=== PATIENT | female | born 1995 | race Caucasian/White ===

== ENCOUNTER 2019-01-01 18:55 | Emergency (ER) | payer MEDICAID, SELFPAY ==
[2019-01-01 18:51] VITALS: PULSE 100; RESP 16; TEMP 37
--- NOTE | 2019-01-01 19:09 | W.ED.GENAD ---
Discharge Plan Disposition Patient Disposition: HOME Condition: Good Discharge Details Chief Complaint: Headache Clinical Impression: Migraine Primary Care Provider: Jerrica Healy ED Provider: Partha Amaro Home Meds and New Rx's Prescriptions: No Action No Known Home Meds RF: 0 Discharge Instructions Instructions: Migraine Headache (ED) Additional Instructions: Your CT scan shows no evidence of concerning tumor, mass or other abnormality. Let your laboratory work-up is very reassuring and normal. Your signs and symptoms are consistent with a complex migraine. Please follow-up closely with your neurologist as soon as possible for reassessment. Please try to decrease in your caffeine intake and avoid preserved meats. If you notice any worsening of your symptoms, or any new symptoms such as vomiting, diarrhea, fever, chills, shortness of breath, chest pain, numbness, weakness, or fainting , please return immediately to the emergency department for reevaluation. Please follow up with your primary care provider as soon as possible for reassessment and reevaluation. As always, it was a pleasure participating in your medical care today. Referrals: Jerrica Healy [Primary Care Provider] - Medical Decision Making This is a 23-year-old female with past medical history of borderline personality disorder, tobacco abuse, previous headaches, who presents today for evaluation of headache. She states that over the last 1 to 2 hours she has had a mild right-sided initially frontal and posterior eye headache that is gradually radiated to the right occiput. It is not the worst headache of her life. She has associated squiggles in her right eye, and subjective tingling in her right upper lip, and fingertips bilaterally. She denies any fever, chills, neck pain. She denies any significant weakness. Physical exam demonstrates no signs of meningitis, no evidence of neurologic deficit. She does appear mildly anxious, but demonstrates an otherwise benign exam. Patient denies any history of recent imaging. With the patient's history of recurrent headaches, and her current headaches and symptoms now, in conjunction with a lack of imaging I do feel that CT scan is reasonable to evaluate for a potential malignancy or mass. We will treat with migraine cocktail fluids, and reassess. At this time her signs and symptoms appear clinically consistent with a complex migraine. 8:35 PM Patient's laboratory work-up has returned, no significant elevation in the WBC count or left shift. Normal electrolytes, normal renal function, negative drug screen, negative test. CT scan shows no acute process. There is mild para sinus disease. On reassessment the patient has complete resolution of her symptoms. She is acting normally, feels much better, no longer feels nervous or jittery, and states that her headache has completely resolved. Repeat neurologic exam is normal and reassuring with no abnormalities. No clinical evidence of meningitis. Signs and symptoms appear clinically consistent with a complex migraine. Recommend close follow-up with her neurologist at [facility]. We discussed red flags which return. I have extensively reviewed the treatment plan and discharge instructions with the patient and their family. I have addressed all patient concerns at this time. The patient and family was made aware of what symptoms to monitor for that would warrant a return to the emergency department. Discussed the plan with the patient and family, they demonstrate verbal understanding and agreement with our assessment and plan at this time. IMPRESSION: 1. No acute intracranial finding. 2. Mucosal thickening of the paranasal sinuses as discussed with moderate air-fluid level in the right frontal sinus, correlate clinically to exclude symptoms of acute sinusitis. Thank you for allowing us to participate in the care of your patient. Dictated and Authenticated by: Dung Wesley MD [facility] General Date/Time Provider Initiated Documentation: 01/01/19 19:05. [facility] Narrative: This is a 23-year-old female who presents today for evaluation of headache. Patient has a past medical history of borderline personality disorder, previous childhood seizures for which she has grown out of, previous headaches. Patient states that today she was driving home from work when she noticed slight mild right-sided/posterior eye headache, which gradually radiated around to the posterior occiput. She denies any neck pain or stiffness. The symptoms eventually worsened over the last 1 to 2 hours, in conjunction with associated mild tingling of her right upper lip, and her fingertips bilaterally. She denies any significant visual changes aside from mild squiggly's in her right eye. She denies any dark curtain coming down over her vision. The patient denies any headache red flags of worst headache of life, thunderclap headache, neck pain, fever, chills, concerning family history of polycystic kidney disease, Marfan syndrome, Ramon-Danlos syndrome, abdominal aortic aneurysm, aortic dissection, or intracranial aneurysm. She denies any chest pain, tearing sensation in her chest or neck, shortness of breath. She denies any recent trauma. Headache symptoms appear to be made worse with light. She states that she has had headaches like this previously in the past. She denies any other complaints, modifying factors. She does admit to regular tobacco use. She denies any IV or illicit drug use. Related Data Home Medications Medication Instructions Recorded Confirmed Unknown [No Known Home Meds] 01/03/18 01/01/19 Allergies Allergy/AdvReac Type Severity Reaction Status Date / Time No Known Allergies Allergy Unverified 01/01/19 18:56 General Stated Complaint: Headache OMAR: 3 Review of Systems Review of Systems All systems reviewed & are unremarkable except as noted in HPI and below PFSH Medical History Seizures (Acute) Social History Smoking/Tobacco Use Status: Never Drug use: Never Do you feel safe in your relationship?: Yes Exam Narrative Exam Narrative: 1.Const: Well-nourished, Well-developed, appearing stated age 2.Eyes: PERRL, no conjunctival injection, and symmetrical lids. 3.ENT: Atraumatic external nose and ears. Moist MM. Neck: Symmetric, trachea midline, No thyromegaly. Patient demonstrates good movement of cervical neck. There is no nuchal rigidity, no nuchal tenderness. Patient is able to flex the neck without any difficulty or significant pain. Negative Kernig's and Brudzinski sign. No evidence of rash over the face or eyes. Eye: EOMI, PERRL, Peripheral vision intact. No nystagmus. Fundoscopic exam shows normal optic discs and normal vasculature. No external signs of preseptal cellulitis, no redness around the eye, no proptosis. No hyphema, no signs of trauma around the eye, no periorbital emphysema. 4.CVS: +S1/S2, No murmurs or gallops. Peripheral pulses 2+ and equal in all extremities. Brisk capillary refill in all extremities. 5.RESP: Unlabored respiratory effort. Clear to auscultation bilaterally. No wheezes rales or rhonchi 6.GI: Soft, Nontender/Nondistended, No hepatosplenomegaly. No guarding or rebound. 7.MSK: Normocephalic/Atraumatic, Extremities w/o deformity or ttp No cyanosis or clubbing, Normal movement of all extremities 8.Skin: Warm, Dry. No rashes or lesions. 9.Neuro: electrician maintenance II-XII grossly intact. Sensation grossly intact, no focal neurologic deficits. All 6 cardinal planes of vision are fully intact. No evidence of rotatory or vertical nystagmus. The patient demonstrated a normal [id number], good dexterity. There was no evidence of dysdiadochokinesia. Patient was able to ambulate without difficulty. There was no wide-based gait. Romberg, and [id number] are both normal on testing. Sensation was intact bilaterally as well as muscle strength bilaterally for all extremities. Patient was able to verbalize butter cup with no slurring, or miss pronunciation. Normal sensation in all fingers and lips, including the areas where she has subjective tingling. 10.Psych: (AAO) x3. Appropriate mood and affect Course Vital Signs Temperature 37.0 C 01/01/19 18:51 Pulse 100 H 01/01/19 18:51 Respiratory Rate 16 01/01/19 18:51 Temperature 37.0 C 01/01/19 18:51 Temperature Source Temporal Artery Scan 01/01/19 18:51 Pulse 100 H 01/01/19 18:51 Respiratory Rate 16 01/01/19 18:51 Respiratory Effort 01/01/19 18:51 Pain Level 6 01/01/19 18:51 Comment 01/01/19 18:51
--- NOTE | 2019-01-01 19:16 | ED.GENADUL_ITS ---
Discharge Plan Disposition Patient Disposition: HOME Condition: Good Discharge Details Chief Complaint: Headache Clinical Impression: Migraine Primary Care Provider: Jerrica Healy ED Provider: Partha Amaro Home Meds and New Rx's Prescriptions: No Action No Known Home Meds RF: 0 Discharge Instructions Instructions: Migraine Headache (ED) Additional Instructions: Your CT scan shows no evidence of concerning tumor, mass or other abnormality. Let your laboratory work-up is very reassuring and normal. Your signs and symptoms are consistent with a complex migraine. Please follow-up closely with your neurologist as soon as possible for reassessment. Please try to decrease in your caffeine intake and avoid preserved meats. If you notice any worsening of your symptoms, or any new symptoms such as vomiting, diarrhea, fever, chills, shortness of breath, chest pain, numbness, weakness, or fainting , please return immediately to the emergency department for reevaluation. Please follow up with your primary care provider as soon as possible for reassessment and reevaluation. As always, it was a pleasure participating in your medical care today. Referrals: Jerrica Healy [Primary Care Provider] - Medical Decision Making This is a 23-year-old female with past medical history of borderline personality disorder, tobacco abuse, previous headaches, who presents today for evaluation of headache. She states that over the last 1 to 2 hours she has had a mild right-sided initially frontal and posterior eye headache that is gradually radiated to the right occiput. It is not the worst headache of her life. She has associated squiggles in her right eye, and subjective tingling in her right upper lip, and fingertips bilaterally. She denies any fever, chills, neck pain. She denies any significant weakness. Physical exam demonstrates no signs of meningitis, no evidence of neurologic deficit. She does appear mildly anxious, but demonstrates an otherwise benign exam. Patient denies any history of recent imaging. With the patient's history of recurrent headaches, and her current headaches and symptoms now, in conjunction with a lack of imaging I do feel that CT scan is reasonable to evaluate for a potential malignancy or mass. We will treat with migraine cocktail fluids, and reassess. At this time her signs and symptoms appear clinically consistent with a complex migraine. 8:35 PM Patient's laboratory work-up has returned, no significant elevation in the WBC count or left shift. Normal electrolytes, normal renal function, negative drug screen, negative test. CT scan shows no acute process. There is mild para sinus disease. On reassessment the patient has complete resolution of her symptoms. She is acting normally, feels much better, no longer feels nervous or jittery, and states that her headache has completely resolved. Repeat neurologic exam is normal and reassuring with no abnormalities. No clinical evidence of meningitis. Signs and symptoms appear clinically consistent with a complex migraine. Recommend close follow-up with her neurologist at [facility]. We discussed red flags which return. I have extensively reviewed the treatment plan and discharge instructions with the patient and their family. I have addressed all patient concerns at this time. The patient and family was made aware of what symptoms to monitor for that would warrant a return to the emergency department. Discussed the plan with the patient and family, they de monstrate verbal understanding and agreement with our assessment and plan at this time. IMPRESSION: 1. No acute intracranial finding. 2. Mucosal thickening of the paranasal sinuses as discussed with moderate air- fluid level in the right frontal sinus, correlate clinically to exclude symptoms of acute sinusitis. Thank you for allowing us to participate in the care of your patient. Dictated and Authenticated by: Dung Wesley MD [facility] General Date/Time Provider Initiated Documentation: 01/01/19 19:05 . [facility] Narrative: This is a 23-year-old female who presents today for evaluation of headache. Patient has a past medical history of borderline personality disorder, previous childhood seizures for which she has grown out of, previous headaches. Patient states that today she was driving home from work when she noticed slight mild right-sided/posterior eye headache, which gradually radiated around to the posterior occiput. She denies any neck pain or stiffness. The symptoms eventually worsened over the last 1 to 2 hours, in conjunction with associated mild tingling of her right upper lip, and her fingertips bilaterally. She denies any significant visual changes aside from mild squiggly's in her right eye. She denies any dark curtain coming down over her vision. The patient denies any headache red flags of worst headache of life, thunderclap headache, neck pain, fever, chills, concerning family history of polycystic kidney disease, Marfan syndrome, Ramon-Danlos syndrome, abdominal aortic aneurysm, aortic dissection, or intracranial aneurysm. She denies any chest pain, tearing sensation in her chest or neck, shortness of breath. She denies any recent trauma. Headache symptoms appear to be made worse with light. She states that she has had headaches like this previously in the past. She denies any other complaints, modifying factors. She does admit to regular tobacco use. She denies any IV or illicit drug use. Related Data Home Medications Medication Instructions Recorded Confirmed Unknown [No Known Home Meds] 01/03/18 01/01/19 Allergies Allergy/AdvReac Type Severity Reaction Status Date / Time No Known Allergies Allergy Unverified 01/01/19 18:56 General Stated Complaint: Headache OMAR: 3 Review of Systems Review of Systems All systems reviewed & are unremarkable except as noted in HPI and below PFSH Medical History Seizures (Acute) Social History Smoking/Tobacco Use Status: Never Drug use: Never Do you feel safe in your relationship?: Yes Exam Narrative Exam Narrative: 1.Const: Well-nourished, Well-developed, appearing stated age 2.Eyes: PERRL, no conjunctival injection, and symmetrical lids. 3.ENT: Atraumatic external nose and ears. Moist MM. Neck: Symmetric, trachea midline, No thyromegaly. Patient demonstrates good movement of cervical neck. There is no nuchal rigidity, no nuchal tenderness. Patient is able to flex the neck without any difficulty or significant pain. Negative Kernig's and Brudzinski sign. No evidence of rash over the face or eyes. Eye: EOMI, PERRL, Peripheral vision intact. No nystagmus. Fundoscopic exam shows normal optic discs and normal vasculature. No external signs of preseptal cellulitis, no redness around the eye, no proptosis. No hyphema, no signs of trauma around the eye, no periorbital emphysema. 4.CVS: +S1/S2, No murmurs or gallops. Peripheral pulses 2+ and equal in all extremities. Brisk capillary refill in all extremities. 5.RESP: Unlabored respiratory effort. Clear to auscultation bilaterally. No wheezes rales or rhonchi 6.GI: Soft, Nontender/Nondistended, No hepatosplenomegaly. No guarding or rebound. 7.MSK: Normocephalic/Atraumatic, Extremities w/o deformity or ttp No cyanosis or clubbing, Normal movement of all extremities 8.Skin: Warm, Dry. No rashes or lesions. 9.Neuro: translation director II-XII grossly intact. Sensation grossly intact, no focal neurologic deficits. All 6 cardinal planes of vision are fully intact. No evide nce of rotatory or vertical nystagmus. The patient demonstrated a normal [id number], good dexterity. There was no evidence of dysdiadochokinesia. Patient was able to ambulate without difficulty. There was no wide-based gait. Romberg, and vpyt-[id number] are both normal on testing. Sensation was intact bilaterally as well as muscle strength bilaterally for all extremities. Patient was able to verbalize butter cup with no slurring, or miss pronunciation. Normal sensation in all fingers and lips, including the areas where she has subjective tingling. 10.Psych: (AAO) x3. Appropriate mood and affect Course Vital Signs Temperature 37.0 C 01/01/19 18:51 Pulse 100 H 01/01/19 18:51 Respiratory Rate 16 01/01/19 18:51 Temperature 37.0 C 01/01/19 18:51 Temperature Source Temporal Artery Scan 01/01/19 18:51 Pulse 100 H 01/01/19 18:51 Respiratory Rate 16 01/01/19 18:51 Respiratory Effort 01/01/19 18:51 Pain Level 6 01/01/19 18:51 Comment 01/01/19 18:51
[2019-01-01] MEDS: Normal Saline 1,000 ML 1000 ML IV (19:19)
[2019-01-01] MEDS: diphenhydrAMINE 50 MG/ML VIAL 25 MG IVP (19:20)
[2019-01-01 19:21] LABS: Abs Immature Grans 0.02 k/cumm (0.0-0.09); Absolute Basophil Count 0.03 k/cumm (0.0-0.2); Absolute Eosinophil Count 0.55 k/cumm (0.0-0.7); Absolute Monocyte Count 0.43 k/cumm (0.11-0.7); Absolute Neutrophil Count 5.31 k/cumm (1.2-6.7); Basophils % 0.3; Eosinophils % 5.2; HCT 41.3 % (36.0-46.0); Immature Grans % 0.2; Lymphocytes % 39.8; Mean Corp. HGB Concentration 33.9 g/dL (32.0-36.0); Mean Corpuscular Hemoglobin 29.2 pg (27.0-33.0); Mean Platelet Volume 8.9 fL (8.0-11.0); Monocytes % 4.1; Neutrophils % 50.4; Platelet Count 300 x1000/uL (130-400); RBC Distribution Width 13.3 % (11.7-14.6); White Blood Cell Count 10.54 k/cumm (4.4-10.8)
[2019-01-01] MEDS: methylPREDNISolone SUCC 125 MG VIAL IVP (19:21)
[2019-01-01] MEDS: Prochlorperazine 10 MG/2 ML VIAL IVP (19:22)
[2019-01-01] MEDS: Acetaminophen 500 MG TAB 1000 MG PO (19:23)
[2019-01-01] MEDS: Ketorolac 15 MG/ML VIAL IVP (19:23)
[2019-01-01 19:45] LABS: ALT 25 U/L (12-78); AST 15 U/L (15-37); Albumin 4.1 g/dL (3.4-5.0); Alkaline Phosphatase 133 U/L (46-116); Anion Gap 11.1 mmol/L (3-11); BUN 16 mg/dL (7-18); Bilirubin, Total 0.3 mg/dL (0.2-1.0); CO2 25.9 mmol/L (21.0-32.0); CREATININE 0.81 mg/dL (0.55-1.02); Calcium 9.3 mg/dL (8.5-10.1); Chloride 104 mmol/L (98-107); Glucose 98 mg/dL (70-100); Potassium 3.7 mmol/L (3.5-5.1); Sodium 141 mmol/L (136-145)
[2019-01-01 19:48] LABS: *AMPHETAMINES SCREEN URINE Negative (Negative); *BARBITURATES SCREEN URINE Negative (Negative); *BENZODIAZEPINES SCREEN URINE Negative (Negative); Cannabinoids THC Negative (Negative); Cocaine Screen,Urine Negative (Negative); METHADONE URINE SCREEN Negative (Negative); OPIATES URINE SCREEN Negative (Negative)
[2019-01-01 19:49] LABS: Tricyclic Antidepressants Negative (Negative)
--- NOTE | 2019-01-01 19:50 | DI.CT_ITS ---
SYMPTOM/DIAGNOSIS: RIGHT SIDED HEADACHE NONCONTRAST HEAD CT: There is opacification of both frontal sinuses as well as several ethmoid sinuses. Small polyp and mucous retention cyst is seen in the posterior right sphenoid sinus. The mastoid air cells appear clear. No intracranial hemorrhage, mass or infarct is seen. The ventricles are normal in size. There is no evidence of skull fracture. IMPRESSION: Sinus disease. No acute intracranial abnormality.
--- NOTE | 2019-01-01 20:07 | DI.VRAD_ITS ---
EXAM: CT Head Without Contrast EXAM DATE/TIME: 01/01/2019 7:08 PM CLINICAL HISTORY: 23 years old, female; Pain; Patient HX: Frontal headache all day, no HX of migraines TECHNIQUE: Imaging protocol: Axial computed tomography images of the head without contrast. Coronal and sagittal reformatted images were created and reviewed. COMPARISON: No relevant prior studies available. FINDINGS: Brain: Normal volume for age. No hemorrhage. No significant white matter disease. No edema. Midline shift: None. Ventricles: Unremarkable.No ventriculomegaly. Bones/joints: Unremarkable. No acute fracture. Sinuses: There is diffuse mucosal thickening of the frontal sinuses with moderate air fluid level within the dependent right frontal sinus. There is mild scattered mucosal thickening of the ethmoid air cells with small mucus retention cyst in the right sphenoid sinus. Mastoid air cells: No mastoid effusion. Orbits: Unremarkable. Soft tissues: No focal soft tissue abnormality. IMPRESSION: 1. No acute intracranial finding. 2. Mucosal thickening of the paranasal sinuses as discussed with moderate air-fluid level in the right frontal sinus, correlate clinically to exclude symptoms of acute sinusitis. Dictated and Authenticated by: Dung Wesley MD. Ordering:CARLENE Chavis MD
== END 2019-01-01 20:43 | disposition home or self-care (01) ==
PROVIDERS: Emergency Provider Student in an Organized Health Care Education/Training Program; PCP Physician Assistant Medical
DX: G43.909 Migraine, unspecified, not intractable, without status migrainosus (principal)
CPT/HCPCS: 80053; 80307; 96361; 96374; 96375; 99284; 70450; 85025; J0780; J1200; J1885; J2930

== ENCOUNTER 2020-09-10 12:13 | Emergency (ER) | payer MEDICAID, SELFPAY ==
[2020-09-10] VITALS (7 sets, daily range): BP systolic 100–110; BP diastolic 43–60; PULSE 74–86; RESP 12–19; TEMP 36.6; O2SAT 95–99
--- NOTE | 2020-09-10 12:00 | RT.EKG_ITS ---
APPROVED REPORT Exam: Resting ECG Patient Location: E HR:78 bpm ECG Measurements Heart Rate 78 AXIS [place] 177 P 30 QRSd 107 QRS 47 QT 375 T 23 QTc 429 Conclusion Sinus rhythm...normal P axis, V-rate 60- 99
--- NOTE | 2020-09-10 12:30 | DI.RAD_ITS ---
EXAM: XR CHEST 2V PA LATERAL CLINICAL HISTORY: chest pain TECHNIQUE: 2D digital imaging was performed. COMPARISON: CR CHEST 2 VIEWS PA,LAT from 01/03/2018 FINDINGS: MEDIASTINUM: Normal. HEART: Normal. PULMONARY VASCULATURE: Normal. LUNGS: Clear. PLEURAL SPACE: No pleural effusion or pneumothorax. BONE:Within normal limits for the patient's age. OTHER FINDINGS:Normal. IMPRESSION: No acute pulmonary findings. DATA REPOSITORY: RADIATION DOSE DELIVERED:
--- NOTE | 2020-09-10 12:35 | ED.GENADUL_ITS ---
Discharge Plan Disposition Patient Disposition: HOME Condition: Good Discharge Details Clinical Impression: Atypical chest pain Primary Care Provider: Radha Mcginnis ED Provider: Emily Montano Home Meds and New Rx's Prescriptions: No Action lamotrigine 100 mg tablet extended release 24hr 100 mg PO DAILY AM RF: 0 Discharge Instructions Instructions: Chest Pain (ED) Additional Instructions: follow-up with your pcp at your scheduled appt continue on your prescribed medications return earlier should you have return of symptoms, worsening symptoms, or with any new concerns Medical Decision Making Patient is alert, oriented, of decisional capacity, after 1 mg of Ativan p.o., feeling symptomatically improved, asymptomatic at time of discharge home I suspect there is a component of anxiety to her presentation I do not see any ominous finding and patient is PERC negative and Wells criteria negative for pulmonary embolism and not on any exogenous estrogen Patient is not tachypneic, tachycardic, or hypoxic, my suspicion suspicion for PE is low With perioral paresthesias and bilateral upper and lower extremity paresthesias, I do not suspect any neurological process Also her neurological exam Time of reevaluation Negative test She is ambulatory steady gait, she denies She has follow-up with her doctor this week reportedly EKG does not show acute pathology I did not order troponin patient is extremely low risk and has no family history of early cardiac disease She does smoke tobacco I did discuss smoking cessation She does not use any additional illicit drugs She can return for new worsening complaints No suspicion for costochondritis, no reproducible tenderness, no pleuritic pain at time of my evaluation Discharge home stable condition with stable vital Differential Diagnosis Differential Diagnosis: Costochondritis, anxiety, dysrhythmia, pulmonary embolism Medical Records Medical records reviewed: Yes I reviewed the patient's medical records. Lab Data Lab results reviewed: Yes I reviewed the patient's lab results. HPI 25-year-old female with history of bipolar disorder presents with chest pain, perioral paresthesias, bilateral hand and feet paresthesias that started abruptly while she was at work eating. She states that she has a history of panic attacks because normally presents with this. She is not taking any medications for it today. She did reinitiate her Lamictal, she was off it for 5 months because she was feeling like her back or with controlled and started eating everything she is depressed. She denies any family history of coagulopathy or personal history of coagulopathy. She denies recent flights, surgeries, long drives. She denies family history of heart disease or sudden cardiac . She does not smoke, drink, use any illicit drugs. General Date/Time Provider Initiated Documentation: 09/10/20 12:14 . Related Data Home Medications Medication Instructions Recorded Confirmed lamotrigine 100 mg PO DAILY AM 09/10/20 09/10/20 Allergies Allergy/AdvReac Type Severity Reaction Status Date / Time Latex, Natural Rubber AdvReac Unverified 09/10/20 12:28 General Stated Complaint: Chest Pain OMAR: 2 Review of Systems Narrative: Review of systems negative x10 HPI, negative history Of Coagulopathy, suicidal ideation, calf pain or swelling, nausea or vomiting [facility] Medical History (Updated 09/10/20 @ 13:28 by SHAGUFTA Choi) Seizures Social History Smoking/Tobacco Use Status: Never Smoking risk assessment performed?: Yes Drug use: Never Do you feel safe in your relationship?: Yes Exam Const General: cooperative and comfortable Orientation: oriented x3 HENMT Throat: uvula midline Eyes Pupils: PERRL Chest Chest: normal inspection of the chest Resp Effort & Inspection: normal respiratory effort Auscultation: clear to auscultation bilaterally Cardio Rate: regular rate Rhythm: regular rhythm GI Other: No tenderness Skin Other: Warm and dry Neuro General: patient alert and patient oriented x3 Cranial Nerves: CN's II-XI intact bilaterally and tongue midline Cognition: normal cognition Speech: speech normal Gait: normal gait Motor: muscle tone normal throughout Sensory Exam: no sensory deficits noted Extrem Other: Change in sensation intact distally, distal pulses intact Psych Appearance: grossly normal and well kempt Thought Process: normal Thought Content: normal Insight: insight good Judgment: judgment good Course Vital Signs Vital signs: Vital Signs Temperature 36.6 C 09/10/20 12:15 Pulse 74 09/10/20 12:15 Respiratory Rate 16 09/10/20 12:15 Blood Pressure 110/43 L 09/10/20 12:15 Pulse Oximetry 99 09/10/20 12:15 Temperature 36.6 C 09/10/20 12:15 Temperature Source Tympanic 09/10/20 12:15 Pulse 74 09/10/20 12:15 Respiratory Rate 16 09/10/20 12:15 Blood Pressure 110/43 L 09/10/20 12:15 Pulse Oximetry 99 09/10/20 12:15 Oxygen Delivery Method Room Air 09/10/20 12:15 Oxygen Flow Rate 0 09/10/20 12:15 Pain Level 0 09/10/20 12:15
[2020-09-10 12:48] LABS: Abs Immature Grans 0.03 10^3/uL (0.0-0.06); Absolute Basophil Count 0.04 10^3/uL (0.0-0.2); Absolute Eosinophil Count 0.45 10^3/uL (0.0-0.7); Absolute Lymphocyte Count 3.05 10^3/uL (1.2-3.4); Absolute Monocyte Count 0.44 10^3/uL (0.1-0.8); Absolute Neutrophil Count 4.57 10^3/uL (1.2-6.7); Basophils % 0.5; Eosinophils % 5.2; HCT 41.5 % (36.0-46.0); HGB 13.6 g/dL (11.2-15.7); Immature Grans % 0.3; Lymphocytes % 35.5; MCH 27.9 pg (27.0-33.0); MCHC 32.8 % (32.0-36.0); MCV 85.2 fL (80-95); Monocytes % 5.1; Neutrophils % 53.4; Nucleated RBC 0 %; Platelet Count 288 10^3/uL (130-400); RBC 4.87 10^6/uL (3.93-5.22); RDW 12.9 % (11.7-14.6); RDW-SD 39.4 fL; WBC 8.58 10^3/uL (4.4-10.8)
[2020-09-10 13:13] LABS: ALT 23 U/L (14-59); AST 21 U/L (15-37); Albumin 3.7 g/dL (3.4-5.0); Alkaline Phosphatase 112 U/L (46-116); Anion Gap 10.7 mmol/L (3-11); BUN 14 mg/dL (7-18); Bilirubin, Total 0.4 mg/dL (0.2-1.0); CO2 23.3 mmol/L (21.0-32.0); CREATININE 0.8 mg/dL (0.55-1.02); Calcium 9.1 mg/dL (8.5-10.1); Chloride 104 mmol/L (98-107); Glucose 99 mg/dL (74-106); Potassium 3.9 mmol/L (3.5-5.1); Sodium 138 mmol/L (136-145); TSH (W/Ref FT4) 1.46 uIU/mL (0.36-3.74); Total Protein 7.8 g/dL (6.4-8.2)
[2020-09-10] MEDS: LORazepam 1 MG TAB PO (13:36)
== END 2020-09-10 13:57 | disposition home or self-care (01) ==
PROVIDERS: Emergency Provider Physician Assistant; PCP Nurse Practitioner Family
DX: R07.89 Other chest pain (principal); R20.2 Paresthesia of skin
CPT/HCPCS: 36415; 80053; 81025; 93005; 99285; 71046; 84443; 85025; 93010

== ENCOUNTER 2021-02-24 16:47 | Outpatient (REF) | payer MEDICAID, SELFPAY ==
--- NOTE | 2021-02-24 15:20 | PAPFT_PTH ---
PATIENT: Federica Ngo LOC: [facility] U#:[id number] AGE/SX: 25/F ROOM: RE02/24/[address]: Radha Mcginnis : 1995 BED: DIS: 02/24/2021 SPEC #: [id number] RECD: 02/24/21 18:47 STATUS: MARC REIrlanda #: [id number] JORGITO: 02/24/21 15:[address]: Radha Mcginnis DEPT: [facility] Cytology RECD BY: Emily Miller Tissues: 1 - CX/ENDOCX FOR PAP SMEARS Procedures: PAP THIN PREP/[facility] Screening Comments: [id number]
== END 2021-02-24 16:48 | disposition home or self-care (01) ==
LOC: NCHCN 16:47
PROVIDERS: PCP Nurse Practitioner Family; Visit Provider Nurse Practitioner Family
DX: Z12.4 Encounter for screening for malignant neoplasm of cervix (principal)
CPT/HCPCS: 88142

== ENCOUNTER 2021-06-09 12:15 | Observation (INO) | payer MEDICAID, SELFPAY ==
[2021-06-09 12:18] VITALS: BP 117/87; PULSE 82; RESP 18; TEMP 36.8; O2SAT 98
--- NOTE | 2021-06-09 12:29 | W.ED.GENAD ---
Discharge Plan Disposition Patient Disposition: [facility] INPATIENT Condition: Stable Discharge Details Clinical Impression: Major depression, Thoughts of self harm Primary Care Provider: Radha Mcginnis ED Provider: Mehnaz De La Cruz Medical Decision Making 26-year-old female with a history of anxiety and depression presents for feelings of anxiety, depression and thoughts of self-harm over the past 3 months. Vitals within normal limits. Patient appears mildly anxious but nontoxic. She is oriented x3 and answers questions appropriately. We will obtain screening labs and call [facility] human services for evaluation. Labs reviewed. Patient is medically cleared. Patient evaluated by assistant activities director Wendy at bedside through [facility] - pt accepted to care bed but no bed available until tomorrow morning. Will hold pt in the ED or if available admit to the floor while awaiting transfer to care bed. SORTING LIVESTOCK WORKER Shayla recommends Prozac 10mg PO to start now. Discussed with nursing supervisor records change and there are beds available on the floor. Case d/w hospitalist who accepts pt for admission pending transfer to care bed tomorrow morning. Medical Records Medical records reviewed: Yes I reviewed the patient's medical records. Lab Data Lab results reviewed: Yes I reviewed the patient's lab results. Labs: Laboratory Tests Range/Units 06/09/21 06/09/21 06/09/21 12:30 12:30 13:05 WBC (4.4-10.8) 10^3/uL RBC (3.93-5.22) 10^6/uL Hgb (11.2-15.7) g/dL Hct (36.0-46.0) % MCV (80-95) fL MCH (27.0-33.0) pg MCHC (32.0-36.0) % RDW (11.7-14.6) % Plt Count (130-400) 10^3/uL MPV (8.0-11.0) fL Immature Gran % Neutrophils % Lymphocytes % Monocytes % Eosinophils % Basophils % Nucleated RBC % % Absolute Neutrophils (1.2-6.7) 10^3/uL Absolute Lymphocytes (1.2-3.4) 10^3/uL Absolute Monocytes (0.1-0.8) 10^3/uL Absolute Eosinophils (0.0-0.7) 10^3/uL Absolute Basophils (0.0-0.2) 10^3/uL Sodium (136-145) mmol/L 139 Potassium (3.5-5.1) mmol/L 4.3 Chloride (98-107) mmol/L 105 Carbon Dioxide (21.0-32.0) mmol/L 26.9 Anion Gap (3-11) mmol/L 7.1 BUN (7-18) mg/dL 11 Creatinine (0.55-1.02) mg/dL 0.8 Estimated GFR/1.73 m2 (mL/min/1.73m2) >= 60.00 Glucose (74-106) mg/dL 88 Calcium (8.5-10.1) mg/dL 9.1 Total Bilirubin (0.2-1.0) mg/dL 0.4 AST (15-37) U/L 19 ALT (14-59) U/L 21 Alkaline Phosphatase (46-116) U/L 108 Total Protein (6.4-8.2) g/dL 8.0 Albumin (3.4-5.0) g/dL 4.0 Urine Color (Yellow) Yellow Urine Clarity (Clear) Clear Urine pH (5-8) 7.5 Ur Specific Saxe (1.005-1.025) 1.020 Urine Protein (Negative) mg/dL Negative Urine Ketones (Negative) mg/dL Negative Urine Blood (Negative) Negative Urine Nitrite (Negative) Negative Urine Bilirubin (Negative) Negative Urine Urobilinogen (Up TO 0.2) EU/dL 0.2 Ur Leukocyte Esterase (Negative) Negative Urine Glucose (Negative) mg/dL Negative Urine Opiates Screen (Negative) Negative Urine Methadone Screen (Negative) Negative Ur Barbiturates Screen (Negative) Negative Ur Tricyclics Screen (Negative) Negative Ur Amphetamines Screen (Negative) Negative U Benzodiazepines Scrn (Negative) Negative Urine Cocaine Screen (Negative) Negative Ur THC Screen (Negative) Positive A Ethyl Alcohol (<10) mg/dL < 3.0 COVID-19 Source Range/Units 06/09/21 06/09/21 13:05 15:12 WBC (4.4-10.8) 10^3/uL 9.64 RBC (3.93-5.22) 10^6/uL 5.16 Hgb (11.2-15.7) g/dL 14.3 Hct (36.0-46.0) % 44.9 MCV (80-95) fL 87.0 MCH (27.0-33.0) pg 27.7 MCHC (32.0-36.0) % 31.8 L RDW (11.7-14.6) % 13.2 Plt Count (130-400) 10^3/uL 329 MPV (8.0-11.0) fL 8.6 Immature Gran % 0.3 Neutrophils % 58.6 Lymphocytes % 30.9 Monocytes % 4.5 Eosinophils % 5.3 Basophils % 0.4 Nucleated RBC % % 0 Absolute Neutrophils (1.2-6.7) 10^3/uL 5.65 Absolute Lymphocytes (1.2-3.4) 10^3/uL 2.98 Absolute Monocytes (0.1-0.8) 10^3/uL 0.43 Absolute Eosinophils (0.0-0.7) 10^3/uL 0.51 Absolute Basophils (0.0-0.2) 10^3/uL 0.04 Sodium (136-145) mmol/L Potassium (3.5-5.1) mmol/L Chloride (98-107) mmol/L Carbon Dioxide (21.0-32.0) mmol/L Anion Gap (3-11) mmol/L BUN (7-18) mg/dL Creatinine (0.55-1.02) mg/dL Estimated GFR/1.73 m2 (mL/min/1.73m2) Glucose (74-106) mg/dL Calcium (8.5-10.1) mg/dL Total Bilirubin (0.2-1.0) mg/dL AST (15-37) U/L ALT (14-59) U/L Alkaline Phosphatase (46-116) U/L Total Protein (6.4-8.2) g/dL Albumin (3.4-5.0) g/dL Urine Color (Yellow) Urine Clarity (Clear) Urine pH (5-8) Ur Specific Saxe (1.005-1.025) Urine Protein (Negative) mg/dL Urine Ketones (Negative) mg/dL Urine Blood (Negative) Urine Nitrite (Negative) Urine Bilirubin (Negative) Urine Urobilinogen (Up TO 0.2) EU/dL Ur Leukocyte Esterase (Negative) Urine Glucose (Negative) mg/dL Urine Opiates Screen (Negative) Urine Methadone Screen (Negative) Ur Barbiturates Screen (Negative) Ur Tricyclics Screen (Negative) Ur Amphetamines Screen (Negative) U Benzodiazepines Scrn (Negative) Urine Cocaine Screen (Negative) Ur THC Screen (Negative) Ethyl Alcohol (<10) mg/dL COVID-19 Source Nasal/Nares HPI General Mode of arrival: ambulatory. Date/Time Provider Initiated Documentation: 06/09/21 12:16. Limitations to Documentation: no limitations. Information obtained by: patient. HPI Narrative: Patient is a 26-year-old female with a history of anxiety and depression presents for feelings of anxiety, depression and thoughts of wanting to harm herself over the past 3 months. She states she saw Quiana with [facility] today for the symptoms and was referred here for further evaluation. She lives at home with her and 2 young children. She states she has not found actually in her usual activities lately and is feeling overwhelmed and anxious. She is currently not on any medication. She feels she is having difficulty eating and sleeping. She is currently denying feeling suicidal but when she does feel suicidal she did have a plan to overdose on pills. She does admit to previous history of self cutting with a knife or razor blade but states she has not done this for a few years. She smokes marijuana but denies any other drug or alcohol use. She denies any fever, headache, dizziness, nausea, vomiting, abdominal pain, diarrhea or urinary symptoms. Related Data Allergies Allergy/AdvReac Type Severity Reaction Status Date / Time Latex, Natural Rubber AdvReac Unverified 06/09/21 12:28 General Stated Complaint: PsychEval OMAR: 2 Review of Systems All systems reviewed & are unremarkable except as noted in HPI and below Constitutional Constitutional: Reports as per HPI, Denies chills and Denies fever(s) Eyes Eyes: Denies blurry vision ENT Ears, Nose, Mouth, and Throat: Denies dizziness, Denies sore throat and Denies throat swelling Cardiovascular Cardiovascular: Denies chest pain and Denies dyspnea Respiratory Respiratory: Denies cough and Denies dyspnea Gastrointestinal Gastrointestinal: Denies abdominal pain, Denies diarrhea and Denies vomiting Genitourinary Genitourinary: Denies hematuria and Denies dysuria Musculoskeletal Musculoskeletal: Denies back pain and Denies numbness Integumentary/Breasts Skin/Breast: Denies lesions and Denies rash Neurologic Neurologic: Denies dizziness, Denies localized weakness and Denies numbness Psychiatric Psychiatric: Reports anxiety, Reports change in appetite, Reports depression, Reports difficulty concentrating, Reports hopelessness, Reports anhedonia and Reports suicidal ideation Allergic/Immunologic Allergic/Immunologic: Denies throat swelling [facility] Active Problem List (Updated 06/09/21 @ 18:18 by Mehnaz De La Cruz DO) Major depression (Chronic) Thoughts of self harm (Acute) Atypical chest pain (Acute) Medical History (Updated 06/09/21 @ 18:18 by Mehnaz De La Cruz DO) Seizures Surgical History (Updated 06/09/21 @ 12:31 by Mehnaz De La Cruz DO) History of adenoidectomy History of tonsillectomy Social History Smoking/Tobacco Use Status: Current every day Tobacco Type: cigarettes Years smoked: 9 Tobacco: How many years used: 9 Smoking risk assessment performed?: Yes Substance use type: marijuana Do you feel safe at home: Yes Do you feel safe in your relationship?: Yes Exam Const General: cooperative, healthy appearing and no acute distress HENMT Head: normal to inspection Face and sinus: normal facial exam Eyes General: appearance normal, both eyes and all related structures Pupils: PERRL EOM: EOM intact bilaterally Neck Neck: normal visual inspection and No submandibular swelling Lymphatic: no lymphadenopathy noted Chest Chest: normal inspection of the chest and no tenderness Resp Effort & Inspection: normal respiratory effort and able to speak in complete sentences Auscultation: clear to auscultation bilaterally Cardio Rate: regular rate Rhythm: regular rhythm GI Inspection: normal to inspection Palpation: soft, not firm, not rigid and nontender Auscultation: normal bowel sounds Skin General skin exam: no rashes or lesions noted Neuro General: patient alert, patient awake and patient oriented x3 Cognition: normal cognition Speech: speech normal Motor: muscle tone normal throughout Sensory Exam: no sensory deficits noted Extrem General: normal to inspection, full ROM, capillary refill normal, no calf tenderness bilaterally and no edema Psych Appearance: grossly normal Mental Status: mental status grossly normal Speech and Movement: speech and movement normal Affect: normal affect Course Vital Signs Vital signs: Vital Signs Temperature 98.2 F 06/09/21 12:18 Pulse 82 06/09/21 12:18 Respiratory Rate 18 06/09/21 12:18 Blood Pressure 117/87 06/09/21 12:18 Pulse Oximetry 98 06/09/21 12:18 Temperature 98.2 F 06/09/21 12:18 Pulse 82 06/09/21 12:18 Respiratory Rate 18 06/09/21 12:18 Blood Pressure 117/87 06/09/21 12:18 Pulse Oximetry 98 06/09/21 12:18 Oxygen Delivery Method Room Air 06/09/21 12:18 Oxygen Flow Rate 0 06/09/21 12:18 Pain Level 0 06/09/21 12:18
[2021-06-09 12:47] LABS: Bilirubin Negative (Negative); Blood Negative (Negative); Clarity Clear (Clear); Glucose Negative (Negative); Ketones Negative (Negative); Leukocyte Esterase Negative (Negative); Nitrite Negative (Negative); Urobilinogen 0.2 EU/dL (Up TO 0.2); pH 7.5 (5-8)
[2021-06-09 12:59] LABS: *AMPHETAMINES SCREEN URINE Negative (Negative); *BARBITURATES SCREEN URINE Negative (Negative); *BENZODIAZEPINES SCREEN URINE Negative (Negative); Cannabinoids THC Positive (Negative); Cocaine Screen,Urine Negative (Negative); METHADONE URINE SCREEN Negative (Negative); OPIATES URINE SCREEN Negative (Negative)
[2021-06-09 13:04] LABS: Tricyclic Antidepressants Negative (Negative)
[2021-06-09 13:13] LABS: Abs Immature Grans 0.03 10^3/uL (0.0-0.06); Absolute Basophil Count 0.04 10^3/uL (0.0-0.2); Absolute Eosinophil Count 0.51 10^3/uL (0.0-0.7); Absolute Lymphocyte Count 2.98 10^3/uL (1.2-3.4); Absolute Monocyte Count 0.43 10^3/uL (0.1-0.8); Absolute Neutrophil Count 5.65 10^3/uL (1.2-6.7); Basophils % 0.4; Eosinophils % 5.3; HCT 44.9 % (36.0-46.0); HGB 14.3 g/dL (11.2-15.7); Immature Grans % 0.3; Lymphocytes % 30.9; MCH 27.7 pg (27.0-33.0); MCHC 31.8 % (32.0-36.0); MPV 8.6 fL (8.0-11.0); Monocytes % 4.5; Neutrophils % 58.6; Nucleated RBC 0 %; Platelet Count 329 10^3/uL (130-400); RBC 5.16 10^6/uL (3.93-5.22); RDW 13.2 % (11.7-14.6); RDW-SD 41.8 fL; WBC 9.64 10^3/uL (4.4-10.8)
[2021-06-09 13:31] LABS: ALT 21 U/L (14-59); AST 19 U/L (15-37); Alkaline Phosphatase 108 U/L (46-116); Anion Gap 7.1 mmol/L (3-11); BUN 11 mg/dL (7-18); Bilirubin, Total 0.4 mg/dL (0.2-1.0); CO2 26.9 mmol/L (21.0-32.0); CREATININE 0.8 mg/dL (0.55-1.02); Calcium 9.1 mg/dL (8.5-10.1); Chloride 105 mmol/L (98-107); Glucose 88 mg/dL (74-106); Potassium 4.3 mmol/L (3.5-5.1); Sodium 139 mmol/L (136-145)
[2021-06-09 13:32] LABS: ETHANOL BLOOD < 3.0 mg/dL (<10)
--- NOTE | 2021-06-09 14:45 | NUR.NOTE ---
Pt is speaking with Quiana BRAMBILA via Face Time at this time.
[2021-06-09 15:36] LABS: Source Nasal/Nares
[2021-06-09] MEDS: FLUoxetine 10 MG TAB PO (16:18)
--- NOTE | 2021-06-09 19:03 | CMSP_ITS ---
- If Service Date Differs Date of service: 06/09/21 Time of Service: 19:03 Care Management Safety Plan Status: Voluntary - Reason for Wait Reason for Wait: Community Placement (care bed) Federica presented to the ED with a history of depression and anxiety, with thoughts of self harm. Federica was evaluated by [facility], who feel that she is appropriate for admission to the [facility] Care Bed. She was accepted for admission for tomorrow (due to staffing they cannot take her tonight). Per [facility], the Care Bed will call at approximately 8:30am to arrange transportation for her admission. VOLUNTARY FOR INPATIENT PSYCHIATRIC STABILIZATION. Patient is appropriate in all interactions since arriving at [facility]; Pt has demonstrated appropriate coping and communication skills, has articulated his or her needs and concerns and is fully engaged during staff interactions. Safety plan has been established with patient, and care team, to adhere to patient goals, identify restrictions based on behavioral status, address nutri tion, and determine allowed personal belongings, tools for hygiene and personal care. Determine level of activity including ambulation, level of supervision, visitors, and determine privileges based on behaviors and level of engagement by pt. SAFETY PLAN: 1. Will remain on suicide precautions. In Paper Clothes 2. Will remain in room under direct supervision of one-on-one staff at all times provided by [employer]; GER[employer], DATA ENTRY ASSISTANT sr. director. 3. May have paper cups, plates, finger foods as well as a cardboard spoon with which to eat meals. 4. Follow [facility] Management of the Admitted Behavioral Health Patient policy. 5. Comfort bath system or shower, at RN discretion. 6. Personal belongings at RN discretion. 7. Visitors-No visitors at this time 8. Activities: soft cart items, TV, coloring book/crayon, music tablet, all at RN discretion. 9. Bathroom privileges without limitation. 10. Phone: incoming/outgoing calls using [facility] phone, at RN discretion. 11. Due to VOLUNTARY status, if patient wishes to leave [facility], staff will contact [facility] Crisis Screener ([phone]) and On-Call Paint Laboratory Technician ([phone]) as soon as possible. In the event of elopement, notify [facility] Police ([phone]). Patient is currently voluntarily at [facility] and seeking inpatient admission when a bed becomes available. [facility] Frontline Operations Program Manager will continue seeking placement. Please contact the Healthcare Representative Paint Laboratory Technician ([phone]) and [facility] Operations Program Manager ([phone]) for any needed changes in the Safety Plan. Safety plan has been provided to interdepartmental care team.
--- NOTE | 2021-06-09 19:03 | PDOC.CMSAFED ---
- If Service Date Differs Date of service: 06/09/21 Time of Service: 19:03 Care Management Safety Plan Status: Voluntary - Reason for Wait Reason for Wait: Community Placement (care bed) Federica presented to the ED with a history of depression and anxiety, with thoughts of self harm. Federica was evaluated by [facility], who feel that she is appropriate for admission to the [facility] Care Bed. She was accepted for admission for tomorrow (due to staffing they cannot take her tonight). Per [facility], the Care Bed will call at approximately 8:30am to arrange transportation for her admission. VOLUNTARY FOR INPATIENT PSYCHIATRIC STABILIZATION. Patient is appropriate in all interactions since arriving at [facility]; Pt has demonstrated appropriate coping and communication skills, has articulated his or her needs and concerns and is fully engaged during staff interactions. Safety plan has been established with patient, and care team, to adhere to patient goals, identify restrictions based on behavioral status, address nutrition, and determine allowed personal belongings, tools for hygiene and personal care. Determine level of activity including ambulation, level of supervision, visitors, and determine privileges based on behaviors and level of engagement by pt. SAFETY PLAN: 1. Will remain on suicide precautions. In Paper Clothes 2. Will remain in room under direct supervision of one-on-one staff at all times provided by [employer]; GERA, ROD MACHINE OPERATOR supervisor gas meter repair. 3. May have paper cups, plates, finger foods as well as a cardboard spoon with which to eat meals. 4. Follow [facility] Management of the Admitted Behavioral Health Patient policy. 5. Comfort bath system or shower, at RN discretion. 6. Personal belongings at RN discretion. 7. Visitors-No visitors at this time 8. Activities: soft cart items, TV, coloring book/crayon, music tablet, all at RN discretion. 9. Bathroom privileges without limitation. 10. Phone: incoming/outgoing calls using [facility] phone, at RN discretion. 11. Due to VOLUNTARY status, if patient wishes to leave [facility], staff will contact [facility] Crisis Screener ([phone]) and On-Call Consolidation Accountant ([phone]) as soon as possible. In the event of elopement, notify [facility] Police ([phone]). Patient is currently voluntarily at [facility] and seeking inpatient admission when a bed becomes available. [facility] Frontline Sleeve Baster will continue seeking placement. Please contact the [employer] Consolidation Accountant ([phone]) and [facility] Sleeve Baster ([phone]) for any needed changes in the Safety Plan. Safety plan has been provided to interdepartmental care team.
[2021-06-09 19:16] VITALS: BP 117/87; PULSE 82; RESP 18; TEMP 36.8; O2SAT 98
[2021-06-09 19:51] LABS: COVID-19 PCR Negative (Negative)
[2021-06-09 19:59] VITALS: BP 110/63; PULSE 89; RESP 20; TEMP 37; O2SAT 98
--- NOTE | 2021-06-09 23:56 | W.PM.HP.N ---
Date of service: 06/09/21 Time of Service: 23:56 Assessment and Plan Assessment and plan (1) Thoughts of self harm: Status: Acute Assessment and plan: Without a plan or prior attempt. The patient was evaluated by mental health and is planned for discharge to care bed tomorrow am. Prozac initiated (2) Major depression: Assessment and plan: Initiated (3) Tobacco abuse: Status: Chronic Assessment and plan: Advised to quit. The patient has politely declined nicotine replacement at this time. (4) Discharge planning issues: Status: Acute Assessment and plan: Full code Anticipate discharge to care bed tomorrow am. History of Present Illness History of Present Illness Chief Complaint: suicidal ideation Narrative: Mr Acosta is a 26 year old female with PMHxs of MDD and anxiety who presented to [facility] ED today c/o suicidal ideation without a plan. She does not have a history of prior attempts. She has been feeling like this for the last four days, but feels better now. She was evaluated by mental health and recommended to be initiated on prozac 10 mg as well as to be discharged to a care bed, which is not available until tomorrow am. Observation on hospitalist service was requested until then. The patient has been medically cleared. Review of Systems All systems reviewed & are unremarkable except as noted in HPI and below [facility] Active Problem List (Updated 06/10/21 @ 00:12 by Kya Salinas MD) Discharge planning issues (Acute) Tobacco abuse (Chronic) Thoughts of self harm (Acute) Atypical chest pain (Acute) Medical History (Updated 06/10/21 @ 00:12 by Kya Salinas MD) Major depression Obesity (BMI 30.0-34.9) Seizures Surgical History (Updated 06/09/21 @ 12:31 by Mehnaz De La Cruz DO) History of adenoidectomy History of tonsillectomy Social History (Updated 06/10/21 @ 00:09 by Kya Salinas MD) Smoking/Tobacco Use Status: Current every day Tobacco Type: cigarettes Years smoked: 9 Tobacco: How many years used: 9 Quit status: not considering quitting Counseling given: provider counseling and patient declined Smoking risk assessment performed?: Yes Alcohol Intake: never Substance use type: marijuana Do you feel safe at home: Yes Do you feel safe in your relationship?: Yes Meds Allergies and Home Medications Allergies Allergy/AdvReac Type Severity Reaction Status Date / Time Latex, Natural Rubber AdvReac Unverified 06/09/21 12:28 Home Medications Medication Instructions Recorded Confirmed Type Unknown [No Known Home Meds] 06/09/21 06/09/21 History Exam Narrative Exam Narrative: General: Pleasant obese female, sleeping, wakes up easily, A&Ox3 Neurological: A&Ox3, no focal deficits Psychiatric: Appropriate speech pattern/content, cooperative Skin: Visible skin intact HEENT: Atraumatic, normocephalic, EOMI, MMM, clear oropharynx, no submandibular or cervical lymphadenopathy, no goiter or JVD Cardiovascular: RRR, no m/r/g Lungs: CTAB Gastrointestinal: soft, nontender, nondistended Genitourinary: deferred Extremities: no edema BLE's Results Labs Result diagrams: 06/09/21 13:05 06/09/21 13:05 Labs: Laboratory Results - last 24 hr 06/09/21 06/09/21 06/09/21 12:30 12:30 13:05 WBC RBC Hgb Hct MCV MCH MCHC RDW Plt Count MPV Immature Gran % Neutrophils % Lymphocytes % Monocytes % Eosinophils % Basophils % Nucleated RBC % Absolute Neutrophils Absolute Lymphocytes Absolute Monocytes Absolute Eosinophils Absolute Basophils Sodium 139 Potassium 4.3 Chloride 105 Carbon Dioxide 26.9 Anion Gap 7.1 BUN 11 Creatinine 0.8 Estimated GFR/1.73 m2 >= 60.00 Glucose 88 Calcium 9.1 Total Bilirubin 0.4 AST 19 ALT 21 Alkaline Phosphatase 108 Total Protein 8.0 Albumin 4.0 Urine Color Yellow Urine Clarity Clear Urine pH 7.5 Ur Specific [place] 1.020 Urine Protein Negative Urine Ketones Negative Urine Blood Negative Urine Nitrite Negative Urine Bilirubin Negative Urine Urobilinogen 0.2 Ur Leukocyte Esterase Negative Urine Glucose Negative Urine Opiates Screen Negative Urine Methadone Screen Negative Ur Barbiturates Screen Negative Ur Tricyclics Screen Negative Ur Amphetamines Screen Negative U Benzodiazepines Scrn Negative Urine Cocaine Screen Negative Ur THC Screen Positive A Ethyl Alcohol < 3.0 COVID-19 Source SARS-CoV-2 (PCR) 06/09/21 06/09/21 13:05 15:12 WBC 9.64 RBC 5.16 Hgb 14.3 Hct 44.9 MCV 87.0 MCH 27.7 MCHC 31.8 L RDW 13.2 Plt Count 329 MPV 8.6 Immature Gran % 0.3 Neutrophils % 58.6 Lymphocytes % 30.9 Monocytes % 4.5 Eosinophils % 5.3 Basophils % 0.4 Nucleated RBC % 0 Absolute Neutrophils 5.65 Absolute Lymphocytes 2.98 Absolute Monocytes 0.43 Absolute Eosinophils 0.51 Absolute Basophils 0.04 Sodium Potassium Chloride Carbon Dioxide Anion Gap BUN Creatinine Estimated GFR/1.73 m2 Glucose Calcium Total Bilirubin AST ALT Alkaline Phosphatase Total Protein Albumin Urine Color Urine Clarity Urine pH Ur Specific [place] Urine Protein Urine Ketones Urine Blood Urine Nitrite Urine Bilirubin Urine Urobilinogen Ur Leukocyte Esterase Urine Glucose Urine Opiates Screen Urine Methadone Screen Ur Barbiturates Screen Ur Tricyclics Screen Ur Amphetamines Screen U Benzodiazepines Scrn Urine Cocaine Screen Ur THC Screen Ethyl Alcohol COVID-19 Source Nasal/Nares SARS-CoV-2 (PCR) Negative Last Vital Signs Temp 37.0 C 06/09/21 19:59 Pulse 89 06/09/21 19:59 Resp 20 06/09/21 19:59 BP 110/63 06/09/21 19:59 Pulse Ox 98 06/09/21 19:59
[2021-06-10 08:01] VITALS: BP 121/74; PULSE 78; RESP 12; TEMP 36.6; O2SAT 97
[2021-06-10] MEDS: FLUoxetine 10 MG TAB PO (08:12)
--- NOTE | 2021-06-10 10:52 | W.PM.DS.N ---
Date of service: 06/10/21 Time of Service: 10:53 DS: Diagnosis Discharge Diagnosis (1) Thoughts of self harm: Status: Acute (2) Major depression: (3) Tobacco abuse: Status: Chronic Discharge Plan Disposition Patient Disposition: HOME Condition: Stable Discharge Details Reason For Visit: Suicidal Ideation Admit Date/Time: 06/09/21 18:20 Admit Provider: Kya Salinas Attending Provider: Kya Salinas Primary Care Provider: Radha Mcginnis Hospital Course Hospital Course: Mr Acosta is a 26 year old female with history of depression and anxiety who presented to the [facility] ED with suicidal ideation without a plan. She does not have a history of prior attempts. She has been feeling like this for the last four days, but feels better now. She was evaluated by mental health and recommended to be initiated on fluoxetine, prozac 10 mg as well as to be discharged to a care bed, which was not available until today. She was observed on hospitalist service and had no behavioral issues. The patient has been medically cleared. She was seen again by mental health and plan was made to discharge to home with safety plan. She is being discharged to home with daily check ins at 10 am and 3 pm, in addition to meeting with Hattie at [facility] at 1 pm 06/11/2021. to administer meds and secure guns, sharps and medications. discharged as planned by [facility] discussed with Dr Singh. Home Meds and New Rx's Prescriptions: New fluoxetine 10 mg Tablet 10 mg PO QAM Qty: 30 RF: 0 Discharge Instructions Instructions: Suicide Prevention (DC) Additional Instructions: Safety discharge care plan agreed upon with shared decision making Home with , Jayson 2 daily check ins : 10 am and 3 pm Jayson to administer all medications, ensure they are taken properly, observe in your mouth and stay present for 15 minutes to ensure they are swallowed. Kids will stay with mother in law today and tomorrow all guns, medications and sharps will be locked up/secured so you will not have access. appointment with Hattie at [facility] at 1 pm tomorrow, June 11, 2021. return or call here sooner for new or worsening symptoms or concerns. Stand Alone Forms: Nursing Discharge Form Referrals: Radha Mcginnis [Primary Care Provider] - 07/02/21 10:00 am Activity:: Activity as Tolerated Equipment/Supplies:: No Equipment Needed Diet:: As Tolerated Discharge Orders Discharge Orders: Discharge Order (Routine); Ordered 06/10/21 Ordered By: Mariangel Kendall DS: Summary Time Spent with Patient providing and/or coordinating discharge services: Less than 30 minutes Status at Discharge Functional status at discharge: independent ambulation Overall status at discharge: patient is back to baseline Mental Status: mental status grossly normal Speech and Movement: speech and movement normal Mood: congruent mood Affect: normal affect Exam Const General: cooperative, healthy appearing and no acute distress HENMT Head: normal to inspection Face and sinus: normal facial exam Eyes General: appearance normal, both eyes and all related structures Neck Neck: normal visual inspection Chest Chest: normal inspection of the chest and no tenderness Resp Effort & Inspection: normal respiratory effort and able to speak in complete sentences Auscultation: clear to auscultation bilaterally Cardio Rate: regular rate Rhythm: regular rhythm GI Inspection: normal to inspection Palpation: soft Auscultation: normal bowel sounds Skin General skin exam: no rashes or lesions noted Neuro General: patient alert, patient awake and patient oriented x3 Cognition: normal cognition Speech: speech normal Motor: muscle tone normal throughout Extrem General: normal to inspection, full ROM and no edema Psych Appearance: grossly normal Mental Status: mental status grossly normal Speech and Movement: speech and movement normal Mood: congruent mood Affect: normal affect DS: Data Vitals/I&O Vitals and I&O: Vital Signs Temperature 36.6 C 06/10/21 08:01 Temperature Source Temporal Artery Scan 06/10/21 08:01 Pulse 78 06/10/21 08:01 Pulse Rhythm Regular 06/10/21 08:12 Respiratory Rate 12 06/10/21 08:01 Respiratory Effort Non-Labored 06/10/21 08:12 Respiratory Depth Normal 06/10/21 08:12 Respiratory Pattern Normal 06/10/21 08:12 Blood Pressure 121/74 06/10/21 08:01 Pulse Oximetry 97 06/10/21 08:01 Oxygen Delivery Method Room Air 06/10/21 08:01 Oxygen Flow Rate 0 06/10/21 08:01 Pain Level 0 06/10/21 08:12 Comment 06/10/21 08:12 Intake & Output 06/09/21 06/09/21 06/10/21 11:59 23:59 11:59 Intake Total 240 / 240 Balance 240 / 240 Weight 103.3 kg Intake: Oral 240 / 240 Other: Urine Appearance Clear Data Completed and Pending Labs on day of discharge: Labs from last 24 hours 06/09/21 06/09/21 06/09/21 15:12 13:05 13:05 WBC 9.64 RBC 5.16 Hgb 14.3 Hct 44.9 MCV 87.0 MCH 27.7 MCHC 31.8 L RDW 13.2 Plt Count 329 MPV 8.6 Immature Gran % 0.3 Neutrophils % 58.6 Lymphocytes % 30.9 Monocytes % 4.5 Eosinophils % 5.3 Basophils % 0.4 Nucleated RBC % 0 Absolute Neutrophils 5.65 Absolute Lymphocytes 2.98 Absolute Monocytes 0.43 Absolute Eosinophils 0.51 Absolute Basophils 0.04 Sodium 139 Potassium 4.3 Chloride 105 Carbon Dioxide 26.9 Anion Gap 7.1 BUN 11 Creatinine 0.8 Estimated GFR/1.73 m2 >= 60.00 Glucose 88 Calcium 9.1 Total Bilirubin 0.4 AST 19 ALT 21 Alkaline Phosphatase 108 Total Protein 8.0 Albumin 4.0 Urine Color Urine Clarity Urine pH Ur Specific [place] Urine Protein Urine Ketones Urine Blood Urine Nitrite Urine Bilirubin Urine Urobilinogen Ur Leukocyte Esterase Urine Glucose Urine Opiates Screen Urine Methadone Screen Ur Barbiturates Screen Ur Tricyclics Screen Ur Amphetamines Screen U Benzodiazepines Scrn Urine Cocaine Screen Ur THC Screen Ethyl Alcohol < 3.0 COVID-19 Source Nasal/Nares SARS-CoV-2 (PCR) Negative 06/09/21 06/09/21 12:30 12:30 WBC RBC Hgb Hct MCV MCH MCHC RDW Plt Count MPV Immature Gran % Neutrophils % Lymphocytes % Monocytes % Eosinophils % Basophils % Nucleated RBC % Absolute Neutrophils Absolute Lymphocytes Absolute Monocytes Absolute Eosinophils Absolute Basophils Sodium Potassium Chloride Carbon Dioxide Anion Gap BUN Creatinine Estimated GFR/1.73 m2 Glucose Calcium Total Bilirubin AST ALT Alkaline Phosphatase Total Protein Albumin Urine Color Yellow Urine Clarity Clear Urine pH 7.5 Ur Specific [place] 1.020 Urine Protein Negative Urine Ketones Negative Urine Blood Negative Urine Nitrite Negative Urine Bilirubin Negative Urine Urobilinogen 0.2 Ur Leukocyte Esterase Negative Urine Glucose Negative Urine Opiates Screen Negative Urine Methadone Screen Negative Ur Barbiturates Screen Negative Ur Tricyclics Screen Negative Ur Amphetamines Screen Negative U Benzodiazepines Scrn Negative Urine Cocaine Screen Negative Ur THC Screen Positive A Ethyl Alcohol COVID-19 Source SARS-CoV-2 (PCR) PFSH Active Problem List (Updated 06/10/21 @ 00:12 by Kya Salinas MD) Discharge planning issues (Acute) Tobacco abuse (Chronic) Thoughts of self harm (Acute) Atypical chest pain (Acute) Medical History (Updated 06/10/21 @ 00:12 by Kya Salinas MD) Major depression Obesity (BMI 30.0-34.9) Seizures Surgical History (Updated 06/09/21 @ 12:31 by Mehnaz De La Cruz DO) History of adenoidectomy History of tonsillectomy Social History (Updated 06/10/21 @ 00:09 by Kya Salinas MD) Smoking/Tobacco Use Status: Current every day Tobacco Type: cigarettes Years smoked: 9 Tobacco: How many years used: 9 Quit status: not considering quitting Counseling given: provider counseling and patient declined Smoking risk assessment performed?: Yes Alcohol Intake: never Substance use type: marijuana Do you feel safe at home: Yes Do you feel safe in your relationship?: Yes
--- NOTE | 2021-06-10 11:05 | NUR.NOTE ---
Nursing Note: At 1100 on 06/10/21, this RN called the [facility] Care Bed to give a nurse to nurse report on the pt. This RN spoke with Jennie (nurse at [facility]) and gave report on the pt., including pt.'s behavior and mentation, VS, pain level, head to toe assessment, suicide risk assessment (pt. denies anxiety, depression, suicidal ideations/plans, and homicidal ideations/plans at this time), etc. Jennie verbalized understanding and presented with no questions. RN will reassess as necessary.
--- NOTE | 2021-06-10 13:05 | NUR.NOTE ---
Nursing Note: Per geriatric personal care aide, after speaking with the pt. and with Quiana from [facility], it sounds like the pt. will be getting discharged to home with a safety plan, which will include daily check-ins with [facility]. kennel manager is confirming this with Quiana. kennel manager will then notify the RN and the PBX TECHNICIAN. RN will reassess as necessary.
--- NOTE | 2021-06-10 15:12 | CMDISCH_ITS ---
- If Service Date Differs Date of service: 06/10/21 Time of Service: 15:12 LACE Index Scoring Tool - Questions: Length of Stay (in days): 1 Acuity (Admit via E.D.?): Yes E.D. Visits: 2 - Answers: Total Score: 6 Risk of Readmission: Low Risk Care Management Discharge Reason for Hospitalization: Suicidal Ideation Discharge Plan: Federica returned home today with a contract for safety from [facility]. She will have twice a day check ins with [facility] staff; her and mother in law will administer her meds and observe her for 15 minutes after; firearms, medications, and sharps will be locked; she will have an appointment with her therapist tomorrow at 1pm. She drove herself home, as her car was at [facility]. She will follow up with [facility], her PCP, and her discharge plan of care. She was happy to be going home. Patient/Family Education Needs: Review discharge instructions and safety plan, discussion of self care needs including ask me three.
--- NOTE | 2021-06-11 10:24 | MHPN_ITS ---
Date of service: 06/10/21 Time of Service: 10:24 Mental Health Crisis Note Presenting Issue How did you arrive at the ED and why did you come: Pt arrived on 06.09.2021 after being assessed by this clinician and was seeking a voluntary admission. Precipitating Factors Pt denied SI and HI today. She is not showing any signs of delusions. Disposition BEHAVIOR: Pt was agitated and oppositional to begin with but when offered her options for treatment she decided that she was going to accept the safety plan home and allow this clinician to speak with her and [id number] to ensure they could support the safety plan. EYE CONTACT: Eye contact is fair. MOOD: Mood as described above was oppositional and agitated however, became more compliant when she learned that if she did not accept voluntary treatment than this could look like an EE. AFFECT: Affect was flat and congruent with mood. APPETITE: Pt reported she is not very hungry. SLEEP(trouble falling/staying asleep: Pt reported she did not sleep well last night. Plan Pt to be discharged home. The Jayson Ngo ([phone]) called shortly after the zoom ended and agreed to the safety plan the Pt did. He added that his mother is keeping the kids today and tomorrow so that they can have some time. [id number], Tabatha ([phone]) did not return the call this time but Jayson said that she was on board as well. Safety plan: Pt will call twice a day at 10am and again at 3pm to [facility] for check in's. Her will administer her medications an she will show that she has taken the meds and then sit for 15-20 mins. to ensure they have dissolved in her stoma ch as she has a history of not taking meds and saying she has. All sharps, meds and firearms will be locked up. Pt will meet with her therapist on 06.11.2021 at 1pm as scheduled. Signature Clinician's Name/Title: Quiana Rankin MS, [facility] Emergency Services Clinician, [facility]
--- NOTE | 2021-06-11 10:36 | MHPN_ITS ---
Date of service: 06/09/21 Time of Service: 10:37 Mental Health Crisis Note Presenting Issue How did you arrive at the ED and why did you come: Pt arrived after evaluation by this clinician seeking voluntary admission to CARE Bed or psychiatric hospital. Precipitating Factors Pt enodrses SI self reporting her risk at a 5/10. She denied HI. She is not showing signs of delusions however, she is unable to use executive functioning. Disposition BEHAVIOR: Pt is soft spoken, taking longer than usual to process questions and answers and shows fair to poor insight and judgment because of her symptoms. EYE CONTACT: Eye contact is fair and she has a blank stare. MOOD: Pt reported her mood is numb. AFFECT: her affect is flat. APPETITE: Pt reported she has to force herself to eat. SLEEP(trouble falling/staying asleep: Pt reported her sleep has been poor. Plan Pt was sent to [facility] for medical clearance as she was unable to decide the treatment path to follow when offered the options. This clinician was uncomfortable sending her home without any interventions at this time again, due to the assessment. This clinician will do an referral for the CARE Bed as well as made an appointment with her PCP and [facility] Shayla Lee. The PCP will likely be cancelled as she is meeting with Shayla today. If the CARE Bed us unable to take the Pt today [facility] will seek hospital level of placement on 06.10.2021 should the Pt still be wanting and requiring this. Signature Clinician's Name/Title: Quiana Gamez MS, [facility] Emergency Services Clinician, [facility]
== END 2021-06-10 13:56 | disposition home or self-care (01) ==
LOC: ER 18:18 → MS 19:29
PROVIDERS: Admitting Provider Internal Medicine; Emergency Provider Physician Assistant; PCP Nurse Practitioner Family; Visit Provider Internal Medicine
DX: F32.9 Major depressive disorder, single episode, unspecified (principal); R45.851 Suicidal ideations; F41.9 Anxiety disorder, unspecified; F17.210 Nicotine dependence, cigarettes, uncomplicated; E66.9 Obesity, unspecified; Z68.36 Body mass index [BMI] 36.0-36.9, adult; Z20.822 Contact with and (suspected) exposure to COVID-19
CPT/HCPCS: 36415; 80053; 80307; 81025; 87635; 99285; 80320; 81003; 85025; 99217; 99218; G0378

== ENCOUNTER 2021-12-18 15:44 | Outpatient (REF) | payer MEDICAID, SELFPAY ==
[2021-12-18 20:04] LABS: HCG Qual (Serum) Negative
== END 2021-12-18 15:45 | disposition home or self-care (01) ==
LOC: NCHCN 15:44
PROVIDERS: PCP Nurse Practitioner Family; Visit Provider Nurse Practitioner Family
DX: Z30.8 Encounter for other contraceptive management (principal)
CPT/HCPCS: 84703

== ENCOUNTER 2022-12-30 09:10 | Emergency (ER) | payer MEDICAID, SELFPAY ==
[2022-12-30 09:13] VITALS: BP 121/64; PULSE 75; RESP 16; TEMP 36.8; O2SAT 100
--- NOTE | 2022-12-30 09:45 | DI.MRI_ITS ---
Exam(s) MR BRAIN WO EXAM: MR BRAIN WO CLINICAL HISTORY: left facial weakness, vision changes, left arm wea TECHNIQUE: Multiplanar multisequence MRI of the brain was performed. FINDINGS: VENTRICLES AND EXTRA AXIAL SPACES: Normal in size and morphology for the patient's age. HEMORRHAGE: None. CEREBRAL PARENCHYMA: No focus of restricted diffusion to suggest acute infarct. No space-occupying le joey identified. MIDLINE SHIFT: None. BRAINSTEM/CEREBELLUM: Normal. CALVARIUM: Normal. VISUALIZED PARANASAL SINUSES/MASTOIDS: Ethmoid and sphenoid sinus mucosal thickening. OTHER FINDINGS: None. IMPRESSION: Unremarkable MRI of the brain. DATA REPOSITORY:
[2022-12-30 10:19] LABS: Abs Immature Grans 0.02 10^3/uL (0.0-0.06); Absolute Basophil Count 0.03 10^3/uL (0.0-0.2); Absolute Eosinophil Count 0.43 10^3/uL (0.0-0.7); Absolute Lymphocyte Count 2.43 10^3/uL (1.2-3.4); Absolute Neutrophil Count 4.07 10^3/uL (1.2-6.7); Basophils % 0.4; Eosinophils % 5.8; HCT 39.3 % (36.0-46.0); HGB 13.2 g/dL (11.2-15.7); Immature Grans % 0.3; Lymphocytes % 32.9; MCH 29.4 pg (27.0-33.0); MCHC 33.6 % (32.0-36.0); MCV 88 fL (80-95); MPV 8.8 fL (8.0-11.0); Monocytes % 5.4; Neutrophils % 55.2; Platelet Count 270 10^3/uL (130-400); RBC 4.49 10^6/uL (3.93-5.22); RDW 12.9 % (11.7-14.6); RDW-SD 41.1 fL; WBC 7.38 10^3/uL (4.4-10.8)
[2022-12-30 10:48] LABS: ALT 21 U/L (14-59); AST 14 U/L (15-37); Alkaline Phosphatase 95 U/L (46-116); Anion Gap 6.6 mmol/L (3-11); BUN 9 mg/dL (7-18); Bilirubin, Total 0.5 mg/dL (0.2-1.0); CO2 28.4 mmol/L (21.0-32.0); CREATININE 0.9 mg/dL (0.55-1.02); Calcium 9.4 mg/dL (8.5-10.1); Chloride 106 mmol/L (98-107); Estimated GFR 90.98 (mL/min/1.73m2); Glucose 97 mg/dL (74-106); Potassium 4.2 mmol/L (3.5-5.1); Sodium 141 mmol/L (136-145); TSH 0.91 uIU/mL (0.36-3.74); Total Protein 7.5 g/dL (6.4-8.2)
--- NOTE | 2022-12-30 11:17 | NUR.NOTE ---
Nursing Note: Referral faxed to [facility] Neurology for migraine new onset, to be seen within the next couple weeks.
--- NOTE | 2022-12-30 11:22 | ED.GENADUL_ITS ---
Discharge Plan Disposition Patient Disposition: Home Discharge Details Clinical Impression: Headache Primary Care Provider: Radha Mcginnis ED Provider: Emily Montano Home Meds and New Rx's Prescriptions: Continued fluoxetine 10 mg Tablet 10 mg PO QAM Qty: 30 0RF Discharge Instructions Instructions: General Headache (ED) Additional Instructions: Please follow-up with neurology, and listing the provider below Take ibuprofen and Tylenol as needed for pain Return earlier should you have worsening symptoms Referrals: Wanda Escboedo MD [ [facility] STAFF PHYSICIAN] - Medical Decision Making Patient has a nonfocal neurological exam presenting with vision change and left- sided facial paresthesias and arm paresthesias, symptoms are resolving with history of symptoms in the past Case discussed with Dr. Escobedo and recommends MRI, diagnostic blood work reviewed, no acute abnormality, negative test, MRI of the brain does not show evidence of acute abnormality per radiology interpretation and my review Patient will need outpatient follow-up with neurology, referral supplied Asymptomatic at time of reassessment, nonfocal neurological exam Comfortable with discharge at this time return precautions reviewed in detail and patient expressed understanding, headache resolved at time of reassessment HPI General Date/Time Provider Initiated Documentation: 12/30/22 09:15 . HPI Narrative: 27-year-old female presents with report of vision changes left eye followed by left facial paresthesias and left arm paresthesias with heaviness in her left arm. She states this started while she was talking to her boss today. She states she started having these episodes in 2019 and was evaluated and told she likely has complex migraines but has not been evaluated by PCP or neurology after this event. She had approximately 3 episodes until the past month in which she had 3 episodes in 1 month which she says is unusual. She states they last between 15 minutes and an hour and usually self resolve without medication. She states that she gets this mild amount of pressure to the left side of her head when these episodes occur. She states her speech is unaffected. She denies any known exacerbating factors. Denies chance of . Denies stiff neck or fever. States her vision change has resolved. Denies any family history of migraines. Remote history of seizures, cleared by neurology in 2018 per patient. Reportedly had complex partial seizures, but states symptoms were dissimilar to her current presentation. Related Data Home Medications Medication Instructions Recorded Confirmed fluoxetine 10 mg tablet 10 mg PO QAM #30 tabs 06/10/21 12/30/22 Previous Rx's Medication Instructions Recorded fluoxetine 10 mg tablet 10 mg PO QAM #30 tabs 06/10/21 Allergies Allergy/AdvReac Type Severity Reaction Status Date / Time Latex, Natural Rubber AdvReac Unverified 12/30/22 09:23 General Stated Complaint: Headache OMAR: 3 PFSH All Active Problems (Updated 12/30/22 @ 11:14 by SHGAUFTA Choi) Headache (Acute) Discharge planning issues (Acute) Tobacco abuse (Chronic) Thoughts of self harm (Acute) Atypical chest pain (Acute) Medical History (Updated 12/30/22 @ 11:14 by SHAGUFTA Choi) Major depression Obesity (BMI 30.0-34.9) Seizures Surgical History (Updated 06/09/21 @ 12:31 by Mehnaz De La Cruz DO) History of adenoidectomy History of tonsillectomy Social History (Updated 06/10/21 @ 00:09 by Kya Salinas MD) Smoking/Tobacco Use Status: Current every day Tobacco Type: e-cigarettes Tobacco: How many years used: 9 Quit status: not considering quitting Counseling given: provider counseling and patient declined Smoking risk assessment performed?: Yes Alcohol Intake: never Drug use: Daily Substance use type: marijuana Do you feel safe at home: Yes Do you feel safe in your relationship?: Yes Course Vital Signs Vital signs: Vital Signs Temperature 36.8 C 12/30/22 09:13 Pulse 75 12/30/22 09:13 Respiratory Rate 16 12/30/22 09:13 Blood Pressure 121/64 12/30/22 09:13 Pulse Oximetry 100 12/30/22 09:13 Temperature 36.8 C 12/30/22 09:13 Temperature Source Oral 12/30/22 09:13 Pulse 75 12/30/22 09:13 Respiratory Rate 16 12/30/22 09:13 Respiratory Effort Normal 12/30/22 09:21 Blood Pressure 121/64 12/30/22 09:13 Blood Pressure Position Sitting 12/30/22 09:13 Pulse Oximetry 100 12/30/22 09:13 Pain Level 3 12/30/22 09:24 Lab/Test Results Lab/Test Results: Laboratory Tests Range/Units 12/30/22 12/30/22 10:16 10:16 WBC (4.4-10.8) 10^3/uL 7.38 RBC (3.93-5.22) 10^6/uL 4.49 Hgb (11.2-15.7) g/dL 13.2 Hct (36.0-46.0) % 39.3 MCV (80-95) fL 88 MCH (27.0-33.0) pg 29.4 MCHC (32.0-36.0) % 33.6 RDW (11.7-14.6) % 12.9 Plt Count (130-400) 10^3/uL 270 MPV (8.0-11.0) fL 8.8 Immature Gran % 0.3 Neutrophils % 55.2 Lymphocytes % 32.9 Monocytes % 5.4 Eosinophils % 5.8 Basophils % 0.4 Nucleated RBC % (0.0-0.3) % 0.0 Absolute Neutrophils (1.2-6.7) 10^3/uL 4.07 Absolute Lymphocytes (1.2-3.4) 10^3/uL 2.43 Absolute Monocytes (0.1-0.8) 10^3/uL 0.40 Absolute Eosinophils (0.0-0.7) 10^3/uL 0.43 Absolute Basophils (0.0-0.2) 10^3/uL 0.03 Sodium (136-145) mmol/L 141 Potassium (3.5-5.1) mmol/L 4.2 Chloride (98-107) mmol/L 106 Carbon Dioxide (21.0-32.0) mmol/L 28.4 Anion Gap (3-11) mmol/L 6.6 BUN (7-18) mg/dL 9 Creatinine (0.55-1.02) mg/dL 0.9 Est GFR (CKD-EPI 2020) (mL/min/1.73m2) 90.98 Glucose (74-106) mg/dL 97 Calcium (8.5-10.1) mg/dL 9.4 Magnesium (1.8-2.4) mg/dL 2.0 Total Bilirubin (0.2-1.0) mg/dL 0.5 AST (15-37) U/L 14 L ALT (14-59) U/L 21 Alkaline Phosphatase (46-116) U/L 95 Total Protein (6.4-8.2) g/dL 7.5 Albumin (3.4-5.0) g/dL 4.0 TSH (0.36-3.74) uIU/mL 0.91 POC- Test(urine) Negative PAWSS Have you Been Recently Intoxicated or Drunk Within the Last 30 days?: No Have you Ever Experienced Previous Episodes of Alcohol Withdrawal?: No Have you ever Experienced Withdrawal Seizures?: No Have you ever Experienced Delirium Tremens(DT)s?: No Have you ever undergone Alcohol Rehabilitation Treatment (i.e, inpt ot outpatient treatment programs)?: No Have you ever Experienced Blackouts?: No Have you ever Combined Alcohol with other Downers within the last 90 days?: No Have you ever Combined Alcohol with any other Substance of Abuse during the last 90 days?: No Positive Blood Alcohol level on Presentation? [PCS.BAL]: No Evidence of Increased Autonomic Activity (i.e. HR>120, tremor, sweating, agitation, nausea)?: No Result: 0
== END 2022-12-30 11:22 | disposition home or self-care (01) ==
PROVIDERS: Emergency Provider Physician Assistant; PCP Nurse Practitioner Family
DX: R51.9 Headache, unspecified (principal); R20.2 Paresthesia of skin
CPT/HCPCS: 36415; 80053; 81025; 99284; 70551; 83735; 84443; 85025; 99283

== ENCOUNTER 2023-05-06 19:19 | Outpatient (REF) | payer MEDICAID, SELFPAY ==
[2023-05-06 19:14] LABS: Bilirubin Negative (Negative); Blood Trace-intact (Negative); Clarity Cloudy (Clear); Glucose Negative (Negative); Ketones Negative (Negative); Leukocyte Esterase Negative (Negative); Nitrite Negative (Negative); Specific Gravity >= 1.030 (1.005-1.025); Urobilinogen 0.2 mg/dL (Up to 0.2)
[2023-05-06 19:30] LABS: RBC Negative HPF (0-2); WBC Negative HPF (0-5)
[2023-05-06 19:31] LABS: Bacteria Rare HPF (Negative); C & S Indicated? No; Casts Negative LPF (Negative); Crystals Moderate Amorphous HPF (Negative); Epithelial Cells Rare HPF (Negative); Mucus Negative (Negative)
== END 2023-05-06 19:20 | disposition home or self-care (01) ==
LOC: NCHCN 19:19
PROVIDERS: PCP Nurse Practitioner Family; Visit Provider Nurse Practitioner Family
DX: M54.9 Dorsalgia, unspecified (principal)
CPT/HCPCS: 81003; 81015

== ENCOUNTER 2023-08-18 10:23 | Outpatient (REF) | payer BC, SELFPAY ==
[2023-08-18 16:26] LABS: Folate 14.1 ng/mL (8.6-20.0); TSH 1.61 uIU/mL (0.36-3.74); Vitamin B12 376 pg/mL (193-986)
[2023-08-31 11:15] LABS: Biotin (Vitamin B7), Serum 756.4 pg/mL
== END 2023-08-18 10:24 | disposition home or self-care (01) ==
LOC: NCHCN 10:23
PROVIDERS: PCP Nurse Practitioner Family; Visit Provider Student in an Organized Health Care Education/Training Program
DX: L60.8 Other nail disorders (principal)
CPT/HCPCS: 84252; 84591; 82607; 82746; 84443

== ENCOUNTER 2023-08-23 13:08 | Outpatient (REF) | payer BC, SELFPAY ==
[2023-08-29 10:44] LABS: Riboflavin (Vitamin B2), P 10 mcg/L (1-19)
== END 2023-08-23 13:09 | disposition home or self-care (01) ==
LOC: NCHCN 13:08
PROVIDERS: PCP Student in an Organized Health Care Education/Training Program; Visit Provider Student in an Organized Health Care Education/Training Program
DX: L60.8 Other nail disorders (principal)
CPT/HCPCS: 84252

== ENCOUNTER 2024-02-17 13:28 | Outpatient (REF) | payer BC, SELFPAY ==
--- OUTSIDE RECORDS SUMMARY | 2024-02-17 13:32 | XMS_ITS | Encounter Summary ---
Author Organization [facility] Address [address] [place] [address] Care Team Providers Care Brim Edge Trimmer Name Role Phone Radha Mcginnis Primary Care Provider [phone] Encounter Details Date Type Department Care Team (Latest Contact Info) Description 02/25/2021 Lab Requisition [facility] Pathology & Laboratory Medicine - [address] [address] Radha Mcginnis FNP [address] [place] [address] Encounter for general adult medical examination without abnormal findings; Encounter for screening for malignant neoplasm of cervix; Encounter for screening for human papillomavirus (HPV) Social History Tobacco Use Types Packs/Day Years Used Date Smoking Tobacco: Never Assessed Sex and Gender Information Value Date Recorded Sex Assigned at Not on file Gender Identity Female 01/25/2022 15:57 EDT Sexual Orientation Not on file documented as of this encounter Plan of Treatment Not on file documented as of this encounter Procedures Procedure Name Priority Date/Time Associated Diagnosis Comments PAP TEST Today 02/24/2021 15:20 EDT Encounter for general adult medical examination without abnormal findings Encounter for screening for malignant neoplasm of cervix Encounter for screening for human papillomavirus (HPV) documented in this encounter Results * PAP TEST (02/24/2021 15:20 EDT) Specimens A. Cervix and/or Endocervix , ThinPrep Imaging System with Manual Evaluation 03/06/2021 14:43 EDT [facility] Specimen Adequacy Satisfactory for Evaluation - transformation zone component present 03/06/2021 14:43 EDT [facility] General Categorization Negative for intraepithelial lesion or malignancy 03/06/2021 14:43 EDT [facility] Attestation . 03/06/2021 14:43 EDT [facility] at 1443 Clinical History See below 03/06/20 14:43 EDT [facility] Performing Lab [facility] 03/06/2021 14:43 EDT [facility] Scanned Images 03/06/2021 14:43 EDT [facility] Papanicolaou smear specimen (specimen) CERVIX UTERI STRUCTURE / Unknown 02/24/2021 15:20 EDT 02/25/2021 9:59 EDT Radha FUNG PATHOLOGY ORDERABLES [facility] [address] [place] [address] documented in this encounter Visit Diagnoses Diagnosis Encounter for general adult medical examination without abnormal findings Unspecified general medical examination Encounter for screening for malignant neoplasm of cervix Screening for malignant neoplasm of the cervix Encounter for screening for human papillomavirus (HPV) Special screening examination for human papillomavirus (HPV) documented in this encounter Care Teams Brim Edge Trimmer Relationship Specialty Start Date End Date Radha Mcginnis [place] [address] PCP - General 01/25/22 documented as of this encounter
--- OUTSIDE RECORDS SUMMARY | 2024-02-17 13:32 | XMS_ITS | Clinical Summary ---
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 Headache(784.0) 04/08/2011 Social History Tobacco Use Types Packs/Day Years Used Date Smoking Tobacco: Every Day Cigarettes Smokeless Tobacco: Never Alcohol Use Standard Drinks/Week Comments No 0 (1 standard drink = 0.6 oz pur e alcohol) Sex and Gender Information Value Date Recorded Sex Assigned at Not on file Gender Identity Not on file Sexual Orientation Not on file Last Filed Vital Signs Vital Sign Reading Time Taken Comments Blood Pressure 122/66 11/28/2017 2:18 PM EDT Pulse 94 11/28/2017 2:18 PM EDT Temperature 36.6 ??C (97.9 ??F) 04/22/2011 1:00 PM ED T Respiratory Rate 18 12/26/2015 11:32 AM EDT Oxygen Saturation - - Inhaled Oxygen Concentration - - Weight 104.8 kg (231 lb) 11/28/2017 2:18 PM EDT Height 165.1 cm (5' 5) 11/28/2017 2:18 PM EDT r eported Body Mass Index 38.44 11/28/2017 2:18 PM EDT Plan of Treatment Health Maintenance Due Date Last Done Comments HPV vaccine (1 - 3-dose series) 2012 HIV screen 2015 Hepatitis C Screening 2015 Lipid Screening 2015 Hepatitis B vaccine (0-59 yrs) (1) 2016 Tdap adult 2016 Tetanus vaccine 2016 PAP Smear 2018 Covid-19 Vaccine (1 - 2022-24 season) 2023 Influenza (Flu) vaccine (1 o f 1 - Influenza standard series) 03/11/2024 Advance Directives * Full Code (Latest Code Status on File) Date Activated Date Inactivated Comments 04/21/2011 3:00 PM 04/22/2011 4:03 PM Question Answer Comments Order Status: Initial Order Does patient have decision m aking capacity? Yes, Order is based on the parent(s) wishe(s). Care Teams Quick Technician Relationship Specialty Start Date End Date Jerrica Healy PA [address] [place] [id number] PCP - General Family Medicine 12/26/15
--- OUTSIDE RECORDS SUMMARY | 2024-02-17 13:32 | XMS_ITS | Encounter Summary ---
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 Social History Tobacco Use Types Packs/Day Years Used Date Smoking Tobacco: Former Cigarettes Smokeless Tobacco: Never Comments:quit aug Alcohol Use Standard Drinks/Week Comments No 0 (1 standard drink = 0.6 oz pur e alcohol) Sex and Gender Information Value Date Recorded Sex Assigned at Not on file Gender Identity Not on file Sexual Orientation Not on file documented as of this encounter Last Filed Vital Signs Vital Sign Reading Time Taken Comments Blood Pressure 113/54 12/28/2016 8:23 AM EDT Pulse 92 12/28/2016 8:23 AM EDT Temperature - - Respiratory Rate - - Oxygen Saturation - - Inhaled Oxygen Concentration - - Weight 115.4 kg (254 lb 6.4 oz) 12/28/2016 8:23 AM EDT Height 165.1 cm (5' 5) 12/28/2016 8:23 AM EDT r eported Body Mass Index 42.33 12/28/2016 8:23 AM EDT documented in this encounter Patient Instructions * Patient Instructions* Ferdinand Mills MD - 12/28/2016 9:00 AM EDT I think you're doing reasonably well. Major seizures appear to be controlled. I'm not sure we can get complete control of the minor ones, particularly while we're limited with regard to medications during your If the seizures are as small they appear to be now, I think it is reasonable at this point to ignore them. Your EEG looks normal. Please get blood tests done here today. 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 Ferdinand Mills MD Department of Neurology [address] [address], [place] [address] Pager: [phone], #[phone] Email: [email or web address] documented in this encounter Progress Notes * Ferdinand Mills MD - 12/28/2016 9:00 AM EDT Neurology Clinic Note Chief complaint: Epilepsy History: The patient is seen in follow-up today. As noted earlier she is 21 years old and right handed, and was referred for neurological consultation by Dr. Healy and Dr. Dillon to address the issue of seizures. She has outgrown the pediatric neurology clinic. The patient was seen today in clinic with her mother. She had a normal and early development.She did well in school. She graduated high school this year. There is no history of major head trauma, concussion, or major childhood illnesses. There is no history of febrile convulsions or meningitis. The patient started to have seizures at the age of 7 years. The first event was a witnessed generalized tonic-clonic convulsive seizure. Subsequently, at age 15 she had 2 more grand mal seizures but none since then. Also, at a relatively young age she started to have what are probably simple partial seizures or epileptic auras. She describes a feeling of dizziness with a sense of motion, and this is associated with nausea. She was having these several times a day. They're now happening every few months. Consciousness is not impaired. According to mother she has not had impairment of consciousness, automatisms, or altered behavior. She does not have lateralized hemisensory/ace-motor symptoms and signs She denies any disturbance of vision or hearing during these events. She does not have any disturbances of taste or smell. She denies having a d??j?? vu sensations. She does not have significant headachesor other migrainous symptoms. The patient has had no unusual nocturnal events or convulsions out of sleep. She has not had tonguebiting or urinary incontinence with any recent events, although she did with the grand mal seizures. The patient has been evaluated with MRI scan of the brain and done here in 2006 which was normal. She has had a routine EEG done in [facility] which I read and was normal. She has had a 24-hour inpatient video EEG monitoring session where no interictal abnormalities were observed. One of her dizzy spells was captured, but there was no associated EEG change. There was some doubt as to whether these spells were epileptic in character. Initially, it was uncertain whether the patient smaller events were epileptic in character. Migraine equivalent and episodic vertigo were considered. She did not do well with meclizine and cyproheptadine. Propanolol made no appreciable difference. She then had another convulsive seizure at the age of 15. At that time she was put on Keppra. This controlled the grand mal seizures, but she continuedto have a dizzy spells. These improved significantly after she was placed on Tegretol, and she wentfrom having several in a day to having one every few months. These were presumably epileptic events. She tolerated the Tegretol well, at a dose of 400 mg twice a day and levels around 8. When I saw her in October 2016 she was 10 weeks . I initially recommended that she stay on Tegretol. However she was not taking her Tegretol in adequate doses, only 100 mg twice a day, because she could not afford it. She did not let us know about this, and subsequently it also became apparent that her [employer] office did not want her to be on Tegretol. At that point we did a crossover to Lamictal. Interval History: The patient is doing reasonably well. She is tolerating Lamictal 100 mg twice a day. She was dizzy at high doses. She has had no major motor seizures since 2010. She thinks she is still having minor events on mostdays.. Her boyfriend describes brief unresponsive spells with eye flutter. She can have several in a day. She feels they are milder since she went on Lamictal. A 24-hour ambulatory EEG done here between yesterday and today is completely normal. However no events were captured. Past medical history: Patient Active Problem List Diagnosis ??? Obesity ??? Seizures ??? Dizziness ??? Ear pain ??? Sphenoid cyst ??? Headache(784.0) Family history: Family history strongly positive for epilepsy. Her maternal grandfather has a left frontal corticaldysplasia. He was my patient for a while and his seizures are controlled on Dilantin. The patient'smother's 2 brothers and one sister have epilepsy. So do various uncles and cousins. Social history: The patient is single. She graduated high school. She is not doing a job at present. She and her fianc?? are living in their own apartment. Review of systems: 1. Eating: Normal 2. Sleeping: Normal 3. Bowels: Normal 4. Bladder: Normal 5. All other systems were reviewed and were normal except as noted in history Medications: Current Outpatient Prescriptions Medication Sig Dispense Refill ??? pyridoxine, vitamin B6, (VITAMIN B6) 50 mg Tablet Take 50 mg by mouth daily. ??? CEPHALEXIN (KEFLEX ORAL) Take by mouth 2 times daily. ??? lamoTRIgine (LAMICTAL) 100 mg Tablet Take 1 tablet by mouth 2 times daily. 60 tablet 11 ??? vitamin with radkjmgf-Fb-Xbgd-FA Tablet Take by mouth daily. ??? folic acid (FOLVITE) 1 mg Tablet Take 1 pill in AM and 2 pills in PM. 30 tablet 12 No current facility-administered medications for this visit. Allergies: Review of patient's allergies indicates no known allergies. Physical Exam: BP 111/56 Pulse 97 Ht 165.1 cm (5' 5) Wt (!) 114.4 kg (252 lb 3.2 oz) BMI 41.97 kg/m2 HEENT: Normal Heart: Normal S1, S2, no abnormal sounds Lungs: Clear Extremities: Normal Neurological exam: Mental state: Normal Speech: Normal Cranial nerves: I: Not tested II: Normal vision for finger counting. Optic disks flat at earlier visits III, IV, : EOMs full V: Facial sensation normal VII: Facial strength normal VIII: Hearing normal IX, X: Palate movement normal XI: Shoulder shrug normal XII: Tongue movement normal Motor: Strength: Normal 5/5 Fine motor: Normal Tone: Normal Abnormal movements: None Deep tendon reflexes: 3+ Babinski sign: None at initial visit Sensation: Touch: Normal Pin: Normal Position: Normal Vibration: Normal Neglect/extinction: None Graphesthesia: Normal Tested in detail at initial visit, screening tests unremarkable today Cerebellar: Finger to nose: Normal Heel to moscoso: Normal Gait: Normal, including stress maneuvers Labs: The patient has had unremarkable CBC chemistry and liver profile recently. Tegretol level was 8. Orders Placed This Encounter Procedures ??? Hepatic Function Panel ??? Basic Metabolic Panel (non-fasting) ??? CBC (with Diff) ??? Lamotrigine Lvl EKG: EEG: Several EEGs have been normal awake and asleep, including some where the patient smaller spells were captured without associated EEG abnormality. Recent 24-hour ambulatory EEG December 2016 shows normal background and no interictal epileptiform abnormalities and no spells, large or small, were captured X-Ray: CAT scans: MRI scans: Normal here in 2006 Impression and suggestions: It is still not altogether clear what is going on. 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 There is a strong family history of epilepsy with thepatient's grandfather having a left frontal cortical dysplasia. I suspect that the whole family suffer from a neuronal migration disorder that is sometimes microscopic and sometimes visible on MRI. The patient's history of rare grand mal seizures is unequivocal, but there was doubt in the past asto whether some of the smaller spells might be migrainous or vertiginous and not epileptic. However, in that case I would not have expected them to respond significantly to Tegretol, which they did, so I presume the smaller spells were also epileptic. They similarly seem milder on Lamictal However she still describes spells of eye fluttering and head pressure, and had some eye flutter during a routine EEG without apparent change. The most recent 24-hour ambulatory EEG captured neither subjective symptoms nor objective electrographic abnormalities I recommended that she remain on Lamictal 100 mg 2 times a day, which is the most she can easily tolerate. I'm checking the level and screening lab studies today. For the feelings of head pressure during I would recommend Tylenol only. Thank you for this consultation. 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 HEMOGRAM Routine 12/28/2016 10:13 AM EDT 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 DIFFERENTIAL, AUTOMATED Routine 12/28/2016 10:13 AM EDT 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 Lymphocytes Abs 2.9 0.9 - 3.2 x10(3)/mc L [facility] Monocyte % 4.5 % [facility] Monocyte Abs 0.7 0.3 - 0.9 x10(3)/mc L [facility] Eos % 3.0 % [facility] Eosinophils Abs 0.5(H) 0.0 - 0.4 x10(3)/mc L [facility] Basophil % 0.2 % [facility] Baso Absolute 0.0 0.0 - 0.1 x10(3)/mc L [facility] Immature Gran % 0.70 % [facility] Comment: Immature granulocytes(IG's)percentage and absolute count will include metamyelocytes, myelocytes, and promyelocytes. Blood smears from CBCs yielding IG's will be scanned manually for concordance. If this scan disagrees with the automated IG or if promyelocytes are noted, a manual differential will be performed. Immature Gran Absolute 0.12(H) 0.00 - 0.04 x10(3)/mc L [facility] Blood specimen (specimen) 12/28/2016 10:13 AM EDT 12/28/2016 10:22 AM EDT Narrative Resulting Agency Comment Spec In Lab Ferdinand Mills MD HEMATOLOGY ORDERABLE S [facility] [place] [address] * (ABNORMAL) Hemogram (12/28/2016 10:13 AM EDT) White Blood Cell 16.2(H) 4.0 - 9.5 x10(3)/mc L [facility] Red Blood Cell 4.16 4.00 - 5.21 x10(6)/mc L [facility] Hemoglobin 12.0 11.7 - 15.5 gm/dL [facility] Hematocrit 36.4 35.7 - 45.8 % [facility] Mean Cell Volume 87.5 82.6 - 94.4 fL [facility] Mean Cell Hemoglobin 28.8 27.1 - 32.0 pg [facility] Mean Cell Hemoglobin Concentration 33.0 31.7 - 35.0 gm/dL [facility] Platelet 328 145 - 357 x10(3)/ L [facility] RDW Standard Deviation 46.7(H) 37.0 - 46.0 fL [facility] RDW coefficient of variation 14.7(H) 11.5 - 14.1 % [facility] Mean Platelet Volume 9.0 7.6 - 12.9 fL [facility] NRBC% auto 0.0 % [facility] NRBC Absolute 0.000 0.000 - 0.000 x10(3)/ L [facility] Blood specimen (specimen) 12/28/2016 10:13 AM EDT 12/28/2016 10:22 AM EDT Narrative Resulting Agency Comment Spec In Lab Ferdinand Mills MD HEMATOLOGY ORDERABLE S [facility] [place] [address] * (ABNORMAL) Lamotrigine Lvl (12/28/2016 10:13 AM EDT) Lamotrigine Lvl (NOVEMBER) 2.3(L) 2.5 - 15.0 mcg/mL [facility] Comment: ADDITIONAL INFORMATION This test was developed and its performance characteristics determined by [facility] in a manner consistent with CLIA requirements. This test has not been cleared or approved by the U.S. Food and Drug Administration. Test Performed by: [facility] - [address] [address] Blood specimen (specimen) 12/28/2016 10:13 AM EDT 12/28/2016 11:43 AM EDT Narrative Resulting Agency Comment Spec In Lab Ferdinand Mills MD LAB SEND OUT ORDERAB LES [facility] [place] [address] * (ABNORMAL) Basic Metabolic Panel (non-fasting) (12/28/2016 10:13 AM EDT) [facility] Glucose 90 65 - 199 mg/dL [facility] Comment:Diabetes: >=200 mg/d L plus symptoms Blood Urea Nitrogen 5(L) 10 - 20 mg/dL [facility] Creatinine 0.63(L) 0.70 - 1.20 mg/dL [facility] Comment: Please note that the pediatric reference intervals supplied above were not validated at [facility]. Results from pediatric patients should be interpreted in conjunction to the patient's age, height and muscle mass. Sodium 138 135 - 145 mmol/L [facility] Potassium 4.5 3.5 - 5.0 mmol/L [facility] Comment: Please note: ??Patients with WBC >100,000 may have falsely elevated Potassium levels. ??For accurate Potassium quantification in these patients send serum separator tube (gold top) for subsequent determinations. ??Contact the Clinical Chemistry Laboratory if there are any questions. Chloride 102 98 - 107 mmol/L [facility] Carbon Dioxide 24 22 - 31 mmol/L [facility] Anion Gap 12 5 - 15 mmol/L [facility] Calcium 9.7 8.5 - 10.5 mg/dL [facility] Est Glomerular Filtration Rate >60 >=60 [facility] Comment: This estimated GFR (eGFR) value was calculated using the MDRD equation which has been validated on patients between the ages of 18 and 70. The MDRD should not be used to assess kidney function in patients < 18 years of age or in patients with extremes of body mass, or in patients with acute kidney failure. This value should be multiplied by 1.2 for patients. For further information please copy and paste the following links into your internet browser. [email or web address] Blood specimen (specimen) 12/28/2016 10:13 AM EDT 12/28/2016 10:22 AM EDT Narrative Resulting Agency Comment Spec In Lab Ferdinand Mills MD CHEMISTRY ORDERABLES [facility] [place] [address] * Hepatic Function Panel (12/28/2016 10:13 AM EDT) Protein, Total 7.1 6.1 - 8.0 gm/dL [facility] Albumin 3.7 3.2 - 5.2 gm/dL [facility] Aspartate Aminotransferase 7 5 - 30 unit/L [facility] Alanine Aminotransferase 7 0 - 25 unit/L [facility] Alkaline Phosphatase 98 55 - 140 unit/L [facility] Bilirubin, Total 0.3 0.2 - 1.3 mg/dL [facility] Bilirubin, Direct 0.1 0.0 - 0.3 mg/dL [facility] Blood specimen (specimen) 12/28/2016 10:13 AM EDT 12/28/2016 10:22 AM EDT Narrative Resulting Agency Comment Spec In Lab Ferdinand Mills MD CHEMISTRY ORDERABLES [facility] [place] [address] documented in this encounter Visit Diagnoses Diagnosis 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
--- OUTSIDE RECORDS SUMMARY | 2024-02-17 13:32 | XMS_ITS | Encounter Summary ---
Author Organization [facility] [place] [address] Care Team Providers Care Angle Furnaceman Name Role Phone Jerrica Healy Primary Care Provider Encounter Details Date Type Department Care Team (Late st Contact Info) Description 01/05/2021 Unscheduled [place] [address] [facility] [place] [address] Seizures; Family history of seizures; Family history of genetic disorder Social History Tobacco Use Types Packs/Day Years Used Date Smoking Tobacco: Every Day Cigarettes Smokeless Tobacco: Never Alcohol Use Standard Drinks/Week Comments No 0 (1 standard drink = 0.6 oz pur e alcohol) Sex and Gender Information Value Date Recorded Sex Assigned at Not on file Gender Identity Not on file Sexual Orientation Not on file documented as of this encounter Progress Notes * Melani Blackmon [facility] - 01/05/2021 2:46 PM EDT This individual's daughter< Allyssa El, was seen by Dr. Madeline Barillas for genetics consultation and genetic testing was completed. 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 Two additional variants of uncertain significance were found in two other genes as well. ?? 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 PACS2 c.1379C>T (p.Sjz620Iud) heterozygous Uncertain Significance ?? RFT1 c.280G>A (p.Ieq64Sxt) heterozygous Uncertain Significance Familial genetic testing was offered at no charge to determine the inheritance of these variants. Federica would like to pursue testing to determine if she carries these gene variants. Written consent was obtained and will be sent to medical records for scanning. This testing will be completed via at-home saliva collection (kit to be sent to patient from [employer]) and the sample will be sent to the [employer] lab for her testing. We will follow-up with this patient after receipt of her results. Melani Blackmon MS, [facility] Licensed Genetic Counselor [phone] documented in this encounter Plan of Treatment Not on file documented as of this encounter Visit Diagnoses Diagnosis Seizures Other convulsions Family history of seizures Family history of other condition Family history of genetic disorder Family history of other condition documented in this encounter Care Teams Angle Furnaceman Relationship Specialty Start Date End Date Jerrica Healy PA [address] [place] [id number] PCP - General Family Medicine 12/26/15 documented as of this encounter
--- OUTSIDE RECORDS SUMMARY | 2024-02-17 13:32 | XMS_ITS | Encounter Summary ---
Author Organization [facility] Address [facility] [place] [address] Care Team Providers Care Manufacturing Engineering Technician Name Role Phone Jerrica Healy Primary Care Provider [phone] Encounter Details Date Type Department Care Team (Late st Contact Info) Description 12/31/2016 Telephone Neurology at [place] [phone] Ferdinand Mills MD [facility] [place] [address] Social History Tobacco Use Types Packs/Day Years Used Date Smoking Tobacco: Former Cigarettes Smokeless Tobacco: Never Comments:quit aug Alcohol Use Standard Drinks/Week Comments No 0 (1 standard drink = 0.6 oz pur e alcohol) Sex and Gender Information Value Date Recorded Sex Assigned at Not on file Gender Identity Not on file Sexual Orientation Not on file documented as of this encounter Miscellaneous Notes * Telephone Encounter - Ferdinand Mills MD - 12/31/2016 4:15 PM EDT Spoke with PCP Alejandra Healy to make her aware of elevated WBC. patient appeared well at clinic visit. Suspect this is just part of . However PCP will repeat and make sure that she is not suffering from any type of infection. Ferdinand Mills MD Department of Neurology [facility] [address], [place] [address] Pager: [phone], #[phone] Email: [email or web address] documented in this encounter Plan of Treatment Not on file documented as of this encounter Visit Diagnoses Not on filedocumented in this encounter Care Teams Manufacturing Engineering Technician Relationship Specialty Start Date End Date Jerrica Healy PA [address] [place] [address] PCP - General Family Medicine 12/26/15 documented as of this encounter
--- OUTSIDE RECORDS SUMMARY | 2024-02-17 13:32 | XMS_ITS | Encounter Summary ---
[facility] Organization [facility] [place] [address] Care Team Providers Care Employee Relations Administrator Name Role Phone Jerrica Healy Primary Care Provider [phone] Reason for Visit * Reason Comments Procedure Encounter Details Date Type Department Care Team (Latest Contact Info) Description 12/28/2016 8:00 AM EDT - 12/28/2016 11:59 PM EDT Hospital [place] [address] Seizure disorder Discharge Disposition: Home Social History Tobacco Use Types Packs/Day Years Used Date Smoking Tobacco: Former Cigarettes Smokeless Tobacco: Never Comments:quit aug Alcohol Use Standard Drinks/Week Comments No 0 (1 standard drink = 0.6 oz pur e alcohol) Sex and Gender Information Value Date Recorded Sex Assigned at Not on file Gender Identity Not on file Sexual Orientation Not on file documented as of this encounter Medications at Time of Discharge Medication Sig Dispensed Refills Start Date End Date lamoTRIgine (LAMICTAL) 100 mg Tablet Take 1 tablet by mouth 2 times daily. 60 tablet 11 12/28/2016 11/28/2017 pyridoxine, vitamin B6, (VITAMIN B6) 50 mg Tablet Take 50 mg by mouth as needed. 11/28/2017 vitamin with dyolzpzd-Ts-Vvxt-FA Tablet Take by mouth daily. 11/28/2017 folic acid (FOLVITE) 1 mg Tablet Take 1 pill in AM and 2 pills in PM. 30 tablet 12 09/13/2016 03/30/2017 documented as of this encounter Procedure Notes * Ferdinand Mills MD - 12/28/2016 8:32 AM EDTAssociated Order(s): EEG 24 HOUR MONITORING, PORTABLE Pre-Procedure Diagnose(s): Seizure disorder [facility] Department of Neurology 24 HOUR AMBULATORY EEG Report Name of the Patient: Federica Acosta Date of : 1995 Date of Service: 12/28/2016 Referring physician: Janelle Mills MD BRIEF HISTORY: Federica Acosta is a 21 y.o. year old patient with recurrent spells.There is history of major and minor seizures and she is now . MEDICATIONS: Current Outpatient Prescriptions Medication Sig Dispense Refill ??? pyridoxine, vitamin B6, (VITAMIN B6) 50 mg Tablet Take 50 mg by mouth as needed. ??? lamoTRIgine (LAMICTAL) 100 mg Tablet Take 1 tablet by mouth 3 times daily. (Patient taking differently: Take 100 mg by mouth 2 times daily.) 90 tablet 5 ??? vitamin with apapjkbv-Gt-Lstl-FA Tablet Take by mouth daily. ??? folic acid (FOLVITE) 1 mg Tablet Take 1 pill in AM and 2 pills in PM. 30 tablet 12 No current facility-administered medications for this encounter. METHODS: A 21 channel digitized electroencephalogram was performed in the [facility] Clinical Neurophysiology Laboratory, and in the patient's home. The 10/20 international system of electrode placement was used and bipolar and referential electrode montages were recorded. In addition to EEG the patient was monitored for EKG and lateral/vertical eye movements. Video was on at the beginning of therecording. The duration of the recording was 24 HOURS. SMALL ANIMAL CARETAKER'S REPORT: Performed by: AT Patient was not sleep deprived. Sleep was attained. Photic stimulation was performed. Hyperventilation was performed. Effort was was adequate. Movement and other artifact was not significant. Comments: 24 HOUR AMBULATORY EEG recording. This patient did not have any push button events. ELECTROENCEPHALOGRAPHER'S REPORT: Background During the awake state with the eyes closed the background consisted of a moderate amplitude, 11 Hzposterior reactive rhythm that attenuated appropriately with eye opening. Beta activity was distributed diffusely with an anterior predominance. There was a normal anterior-posterior voltage gradient. With eye opening the background activity changed to a low voltage mixture of alpha, beta, and occasional theta range frequencies. There were no significant asymmetries of background activity noted. Sleep Stage II/III sleep was obtained and consisted of symmetrical sleep spindles, vertex sharp waves, and diffuse delta slowing. Hyperventilation Hyperventilation resulted in diffuse slowing of the background activity without appearance of abnormal activity. Photic Stimulation Photic stimulation using a step-avendano increase in photic frequency varying from 1-21 Hertz resulted in bilateral driving responses but no appearance of abnormal activity. Abnormal Interictal EEG Activity None Clinical Events/Push-button None EKG EKG revealed normal sinus rhythm. PRIOR EE11/2016 normal EEG INTERPRETATION: This long-term 24-hour ambulatory EEG is normal during the awake and sleep states as well as duringthe activation procedures of hyperventilation and photic stimulation. CLINICAL CORRELATION: This is a normal study. No events or push button alarms recorded. Rodney Durand MD Epilepsy Fellow #[id number] 12/31/2016 9:12 AM. CC: SHAGUFTA Nolasco Neurology Attending I have personally reviewed the EEG, and I agree with the details as written. The above report was formulated in discussion with me at the time of EEG reading, and I agree with it as documented. Ferdinand Mills MD Department [place] [address] Pager: [phone], #[phone] Email: [email or web address] documented in this encounter Plan of Treatment Not on file documented as of this encounter Procedures Procedure Name Priority Date/Time Associated Diagnosis Comments ZEEG 24 HOUR MONITORING, PORTABLE Routine 01/02/2017 10:09 AM EDT Seizure disorder documented in this encounter Results * 24 Hour EEG, Portable (01/02/2017 10:09 AM EDT) Narrative Ferdinand Mills MD - 01/02/2017 10:09 AM EDT Ferdinand Mills MD ? 01/02/2017 10:09 AM [facility] Department of Neurology 24 HOUR AMBULATORY EEG Report Name of the Patient: ??Federica Acosta Date of : ?1995 Date of Service: ?12/28/2016 Referring physician: ?Janelle Mills MD BRIEF HISTORY: Federica Acosta is a 21 y.o. year old patient with recurrent spells.There is history of major and minor seizures and she is now . MEDICATIONS: Current Outpatient Prescriptions Medication Sig Dispense Refill ? ? pyridoxine, vitamin B6, (VITAMIN B6) 50 mg Tablet Take 50 mg by mouth as needed. ? lamoTRIgine (LAMICTAL) 100 mg Tablet Take 1 tablet by mouth 3 times daily. (Patient taking differently: Take 100 mg by mouth 2 times daily.) 90 tablet 5 ? ? vitamin with ukwynums-Kp-Lnpo-FA Tablet Take ??by mouth daily. ? folic acid (FOLVITE) 1 mg Tablet Take 1 pill in AM and 2 pills in PM. 30 tablet 12 No current facility-administered medications for this encounter. ?? METHODS: A 21 channel digitized electroencephalogram was performed in the [facility] Clinical Neurophysiology Laboratory, and in the patient's home. The 10/20 international system of electrode placement was used and bipolar and referential electrode montages were recorded. ??In addition to EEG the patient was monitored for EKG and lateral/vertical eye movements. Video was on at the beginning of the recording. The duration of the recording was 24 HOURS. SMALL ANIMAL CARETAKER'S REPORT: Performed by: AT Patient was not sleep deprived. Sleep was attained. Photic stimulation was performed. Hyperventilation was performed. Effort was was adequate. Movement and other artifact was not significant. Comments: 24 HOUR AMBULATORY EEG recording. This patient did not have any push button events. ELECTROENCEPHALOGRAPHER'S REPORT: Background During the awake state with the eyes closed the background consisted of a moderate amplitude, 11 Hz posterior reactive rhythm that attenuated appropriately with eye opening. Beta activity was distributed diffusely with an anterior predominance. There was a normal anterior-posterior voltage gradient. With eye opening the background activity changed to a low voltage mixture of alpha, beta, and occasional theta range frequencies. There were no significant asymmetries of background activity noted. Sleep Stage II/III sleep was obtained and consisted of symmetrical sleep spindles, vertex sharp waves, and diffuse delta slowing. Hyperventilation Hyperventilation resulted in diffuse slowing of the background activity without appearance of abnormal activity. Photic Stimulation Photic stimulation using a step-avendano increase in photic frequency varying from 1-21 Hertz resulted in bilateral driving responses but no appearance of abnormal activity. Abnormal Interictal EEG Activity None Clinical Events/Push-button None EKG EKG revealed normal sinus rhythm. PRIOR EE11/2016 normal EEG INTERPRETATION: This long-term 24-hour ambulatory EEG is normal during the awake and sleep states as well as during the activation procedures of hyperventilation and photic stimulation. CLINICAL CORRELATION: This is a normal study. No events or push button alarms recorded. Rodney Durand MD Epilepsy Fellow #[id number] 12/31/2016 9:12 AM. CC: SHAGUFTA Nolasco Neurology Attending I have personally reviewed the EEG, and I agree with the details as written. ?? The above report was formulated in discussion with me at the time of EEG reading, and I agree with it as documented. Ferdinand Mills MD Department [place] [address] Pager: [phone], #[phone] Email: [email or web address] Ferdinand Mills MD NEUROLOGY ORDERABLES documented in this encounter Visit Diagnoses Diagnosis Seizure disorder Unspecified epilepsy without mention of intractable epilepsy documented in this encounter Care Teams Employee Relations Administrator Relationship Specialty Start Date End Date Jerrica Healy PA [address] [place] [id number] PCP - General Family Medicine 12/26/15 documented as of this encounter
--- OUTSIDE RECORDS SUMMARY | 2024-02-17 13:32 | XMS_ITS | Encounter Summary ---
Author Organization [facility] Address [facility] [place] [address] Care Team Providers Care Sailing Officer Name Role Phone Jerrica Healy Primary Care Provider [phone] Encounter Details Date Type Department Care Team (Late st Contact Info) Description 03/30/2017 3:15 PM EDT Office [place] [address] [facility] [place] [place] [address] Partial symptomatic epilepsy with complex partial seizures, intractable, without status epilepticus Social History Tobacco Use [...] Sign Reading Time Taken Comments Blood Pressure 110/66 03/30/2017 3:19 PM EDT Pulse 109 03/30/2017 3:19 PM EDT Temperature - - Respiratory Rate - - Oxygen Saturation - - Inhaled Oxygen Concentration - - Weight 122.1 kg (269 lb 3.2 oz) 03/30/2017 3:19 PM EDT Height 165.1 cm (5' 5) 03/30/2017 3:19 PM EDT r eported Body Mass Index 44.8 03/30/2017 3:19 PM EDT documented in this encounter Patient Instructions * Patient Instructions* Ferdinand Mills MD - 03/30/2017 3:15 PM EDT I think you're doing quite well. The larger seizures have been under control for some years. It is reassuring that you not having smaller ones either at the moment Your neurological exam is entirely normal. I think it is reasonable for you to stay on the present dose of Lamictal for some time. Please also stay on the same vitamins for now. I do not think you need to continue the folic acid indefinitely. One of 2 months after delivery youcan stop it. I would like to see you back in 6 months or sooner if necessary Ferdinand Mills MD [place] [address] Pager: [phone], #[phone] Email: [email or web address] documented in this encounter Progress Notes * Ferdinand Mills MD - 03/30/2017 3:15 PM EDT Neurology Clinic Note Chief complaint: Epilepsy History: The patient is seen in follow-up today. As noted earlier she is 21 years old and right handed, and was referred for neurological consultation by Dr. Healy and Dr. Dillon to address the issue of seizures. The patient was originally seen in clinic with her mother. She had a normal and early development. She did well in school. She graduated high school this year. There is no history of major headtrauma, concussion, or major childhood illnesses. There is [...] has had a routine EEG done in [facility] which I read and was normal. [...] subsequently it also became apparent that her SAMPLE COORDINATOR office did not want her to be on Tegretol. At that point we did a crossover to Lamictal. Interval History: The patient is doing well. She is tolerating Lamictal 100 mg twice a day. She was dizzy at higher doses. She has had no major motor seizures since 2010. She was having minor events on most days until recently but thinks she has had none in the last few months.. Her boyfriend described brief unresponsivespells with eye flutter. He was not here today. Her sister has not noticed anything lately. Her last 24-hour ambulatory EEG done here in 2017 was completely normal. However no events were captured. The is going well. She is due next month. At her last visit and elevated white blood cellcount was noted, but this was probably due only to the . She has had no symptoms of infection. Past medical history: Patient Active Problem List [...] daily. 60 tablet 11 ??? vitamin with csttvqym-Sf-Jbga-FA Tablet Take by mouth daily. ??? folic acid (FOLVITE) 1 mg Tablet Take 1 pill in AM and 2 pills in PM. 30 tablet 12 No current facility-administered medications for this visit. Allergies: Review of patient's allergies indicates no known allergies. Physical Exam: BP 110/66 (BP Location (NBP): Left arm, Patient Position: Sitting, BP Cuff Sizes: Large Adult (32-43 cm)) Pulse 109 Ht 165.1 cm (5' 5) Comment: reported Wt (!) 122.1 kg (269 lb 3.2 oz) BMI 44.8 kg/m2 HEENT: Normal Heart: Normal S1, S2, no abnormal sounds Lungs: Clear Extremities: Normal Neurological exam: Mental state: Normal Speech: Normal Cranial nerves: I: Not tested II: Normal vision for finger counting. Optic disks flat III, IV, : EOMs full V: Facial [...] Normal Vibration: Normal Neglect/extinction: None Graphesthesia: Normal Cerebellar: Finger to nose: Normal Heel to moscoso: Normal Gait: Normal, including stress maneuvers Labs: The patient has had unremarkable CBC chemistry and liver profile. Tegretol level was 8, before it was discontinued. Blood tests done in 2017 all unremarkable. ??? Hepatic Function Panel ??? Basic Metabolic Panel (non-fasting) ??? CBC (with Diff) ??? Lamotrigine Lvl = 2.3 EKG: EEG: Several EEGs have been normal [...] presume the smaller spells were also epileptic. Until recently she described having spells of eye fluttering and head pressure, and had some eye flutter during a routine EEG without apparent change. The most recent 24-hour ambulatory EEG captured neither subjective symptoms nor objective electrographic abnormalities. The spells seem now to be fully controlled on Lamictal. I recommended that she remain on Lamictal 100 mg 2 times a day, which is the most she can tolerate. I don't think it is necessary check a leveltoday. For the feelings of head pressure during I would recommend Tylenol only. Thank you for this consultation. I will see her back in 6 months, which would be 5 months after her delivery, or sooner if necessary. Ferdinand Mills MD Department [place] [address] Pager: [phone], #[phone] Email: [email or web address] CC: Jerrica Ortiz documented in this encounter Plan of Treatment Not on file documented as of this encounter Visit Diagnoses Diagnosis Partial symptomatic epilepsy with complex partial seizures, intractable, without status epilepticus documented in this encounter Care Teams Sailing Officer Relationship Specialty Start Date End Date Jerrica Healy PA [address] [place] [id number] PCP - General Family Medicine 12/26/15 documented as of this encounter
--- OUTSIDE RECORDS SUMMARY | 2024-02-17 13:32 | XMS_ITS | Encounter Summary ---
Author Organization [facility] Address [address] [place] [address] Care Team Providers Care Rocket Motor Mechanic Name Role Phone Radha Mcginnis Primary Care Provider [phone] Encounter Details Date Type Department Care Team (Late st Contact Info) Description 01/25/2022 16:00 EDT Phlebotomy Only [facility] ED Center 2 Phlebotomy [address] [place], [place] [id number] Jive Developer, Acc Phlebotomy Health examination in population survey (Primary Dx) Social History Tobacco Use Types Packs/Day Years Used Date Smoking Tobacco: Never Assessed Sex and Gender Information Value Date Recorded Sex Assigned at Not on file Gender Identity Female 01/25/2022 15:57 EDT Sexual Orientation Not on file documented as of this encounter Plan of Treatment Not on file documented as of this encounter Procedures Procedure Name Priority Date/Time Associated Diagnosis Comments QUANTIFERON MITOGEN (PERFORMABLE) Routine 01/25/2022 16:23 EDT Health examination in population survey QUANTIFERON TB2 (PERFORMABLE) Routine 01/25/2022 16:23 EDT Health examination in population survey QUANTIFERON INTERPRETATION (PERFORMABLE) Today 01/25/2022 16:23 EDT Health examination in population survey QUANTIFERON TB1 (PERFORMABLE) Routine 01/25/2022 16:22 EDT Health examination in population survey QUANTIFERON NIL (PERFORMABLE) Routine 01/25/2022 16:22 EDT Health examination in population survey QUANTIFERON TB GOLD PLUS Routine 01/25/2022 16:22 EDT Health examination in population survey documented in this encounter Results * QUANTIFERON INTERPRETATION (PERFORMABLE) (01/25/2022 16:23 EDT) Quantiferon Interpretation Negative Negative 01/26/2022 13:06 EDT [facility] Comment:No interferon-gamma response to M. tuberculosis antigens was detected. ??Infection with M. tuberculosis is unlikely. A single negative result does not exclude infection with M. tuberculosis. ??In patients at high risk for M. tuberculosis infection, a second test should be considered. TB1 Ag minus Nil 0.03 IU/ml 01/27/20 13:06 EDT [facility] TB2 Ag minus Nil 0.00 IU/mL 01/27/20 13:06 EDT [facility] Blood VENOUS BLOOD / Unknown Venipuncture / Unknown 01/25/2022 16:23 EDT 01/26/2022 13:00 EDT Narrative [facility] - 01/26/2022 13:06 EDT Results were obtained with the [employer] QuantiFERON-TB Gold Plus CLIA. New platform in use 03/18/2021 Doctor Zak REINA IMMUNOLOGY AND SERO LOGY ORDERABLES Performing Organization Address [facility] Co de Phone Number [facility] [address] [place] [address] * QUANTIFERON MITOGEN (PERFORMABLE) (01/25/2022 16:23 EDT) Blood VENOUS BLOOD / Unknown Venipuncture / Unknown 01/25/2022 16:23 EDT 01/25/2022 16:37 EDT Doctor Zak REINA IMMUNOLOGY AND SERO LOGY ORDERABLES Performing Organization Address City/[facility]/ZIP Co de Phone Number [facility] [address] [place] [address] * QUANTIFERON TB2 (PERFORMABLE) (01/25/2022 16:23 EDT) Blood VENOUS BLOOD / Unknown Venipuncture / Unknown 01/25/2022 16:23 EDT 01/25/2022 16:37 EDT Doctor Zak REINA IMMUNOLOGY AND SERO LOGY ORDERABLES Performing Organization Address City/[facility]/ZIP Co de Phone Number [facility] [address] [place] [address] * QUANTIFERON TB1 (PERFORMABLE) (01/25/2022 16:22 EDT) Blood VENOUS BLOOD / Unknown Venipuncture / Unknown 01/25/2022 16:22 EDT 01/25/2022 16:37 EDT Doctor Transcribe MD IMMUNOLOGY AND SERO LOGY ORDERABLES Performing Organization Address City/State/[facility] Co de Phone Number [facility] [address] [place] [address] * QUANTIFERON NIL (PERFORMABLE) (01/25/2022 16:22 EDT) Blood VENOUS BLOOD / Unknown Venipuncture / Unknown 01/25/2022 16:22 EDT 01/25/2022 16:37 EDT Doctor Transcribe MD IMMUNOLOGY AND SERO LOGY ORDERABLES Performing Organization Address City/[facility]/ZIP Co de Phone Number [facility] [address] [place] [address] documented in this encounter Visit Diagnoses Diagnosis Health examination in population survey- Primary documented in this encounter Care Teams Rocket Motor Mechanic Relationship Specialty Start Date End Date Radha Mcginnis FNP [address] [place] [address] PCP - General 01/25/22 documented as of this encounter
--- OUTSIDE RECORDS SUMMARY | 2024-02-17 13:32 | XMS_ITS | Clinical Summary ---
Author Organization [facility] Address [address] [place] [address] Care Team Providers Care News Director Name Role Phone Radha Mcginnis Primary Care Provider [phone] Social History Tobacco Use Types Packs/Day Years Used Date Smoking Tobacco: Never Assessed Sex and Gender Information Value Date Recorded Sex Assigned at Not on file Gender Identity Female 01/25/2022 15:57 EDT Sexual Orientation Not on file Plan of Treatment Health Maintenance Due Date Last Done Comments Hepatitis C Screen 1995 Hepatitis B Vaccine (1 of 3 - 19+ 3-dose series) 05/29 COVID-19 Vaccine (2022- season) 2023 Care Teams News Director Relationship Specialty Start Date End Date Radha Mcginnis [place] [address] [place] [address] PCP - General 01/25/22
--- OUTSIDE RECORDS SUMMARY | 2024-02-17 13:32 | XMS_ITS | Referral Summary ---
Author Organization [facility] Address [address] [place] [address] Care Team Providers Care Barn Boss Name Role Phone Radha Mcginnis Primary Care Provider [phone] Social History Tobacco Use Types Packs/Day Years Used Date Smoking Tobacco: Never Assessed Sex and Gender Information Value Date Recorded Sex Assigned at Not on file Gender Identity Female 01/25/2022 15:57 EDT Sexual Orientation Not on file Plan of Treatment Not on file Care Teams Barn Boss Relationship Specialty Start Date End Date Radha Mcginnis [place] [address] [place] [address] PCP - General 01/25/22
--- OUTSIDE RECORDS SUMMARY | 2024-02-17 13:32 | XMS_ITS | Encounter Summary ---
Author Organization [facility] Address [facility] [place] [address] Care Team Providers Care Junior Graphic Designer Name Role Phone Jerrica Healy Primary Care Provider [phone] Reason for Visit * Reason Onset Date Comments Other 02/04/2017 Encounter Details Date Type Department Care Team (Late st Contact Info) Description 02/04/2017 [place] [address] Chris Mills MD [facility] [place] [address] Other Social History Tobacco Use Types Packs/Day Years [...] encounter Miscellaneous Notes * Telephone Encounter - Constantino Escobedo RN - 02/11/2017 8:58 AM EDT Form downloaded and put in Dr. Mills's mailbox. Constantino * Telephone Encounter - Aditi Sadler - 02/10/2017 2:47 PM EDT Patient returned call. Confirmed phone number and availability. Also confirmed fax number for [employer]. * Telephone Encounter - Constantino Escobedo, RN - 02/04/2017 3:29 PM EDT Hi, This is excessively burdensome. It is her job to get the form to me. I am not going to troll websites. Once I have it I will fill it out and fax it. chris ? Previous Messages Called and left message for Federica to return call. Constantino * Telephone Encounter - Aditi Sadler - 02/04/2017 1:55 PM EDT Caller: Federica If not Pt / Relation to pt: Best time to reach caller: anytime Before 2:30pm - Informed caller that nurse will call back by the end of the day Best number to reach caller: [phone] Reason for Call: Form Type of form: V Medical release form Pt to fax/drop off/mail: Online form on the [facility] website When does patient need to have form completed by: Early next week Is form to be faxed, mailed, picked up: Faxed Fax # for faxing [phone] Address for mailing Please note that for [facility] Disability forms the patient must schedule an appointment to meet with their provider to have the paperwork completed. Disposition of Call (nurse paged, red arrow message to nurse pool, routine message to nurse pool): routine message to nurse documented in this encounter Plan of Treatment Not on file documented as of this encounter Visit Diagnoses Not on filedocumented in this encounter Care Teams Junior Graphic Designer Relationship Specialty Start Date End Date Jerrica Healy PA [address] [place] [id number] PCP - General Family Medicine 12/26/15 documented as of this encounter
--- OUTSIDE RECORDS SUMMARY | 2024-02-17 13:32 | XMS_ITS | Encounter Summary ---
Author Organization [facility] Address [facility] [place] [address] Care Team Providers Care Assembly Instructions Writer Name Role Phone Jerrica Healy Primary Care Provider [phone] Encounter Details Date Type Department Care Team (Late st Contact Info) Description 11/28/2017 2:30 PM EDT [place] [address] Ferdinand Mills MD [facility] [place] [address] Seizure disorder Social History Tobacco Use Types Packs/Day [...] Pulse 94 11/28/2017 2:18 PM EDT Temperature - - Respiratory Rate - - Oxygen Saturation - - Inhaled Oxygen Concentration - - Weight 104.8 kg (231 lb) 11/28/2017 2:18 PM EDT Height 165.1 cm (5' 5) 11/28/2017 2:18 PM EDT r eported Body Mass Index 38.44 11/28/2017 2:18 PM EDT documented in this encounter Progress Notes * Ferdinand Mills MD - 11/28/2017 2:30 PM EDT Neurology Clinic Note Chief complaint: [...] has had a routine EEG done in [facility] which I read and was normal. [...] subsequently it also became apparent that her [employer]PER[employer] office did not want her to be on Tegretol. At that point we did a crossover to Lamictal. Interval History: The patient is doing well. Her baby was delivered 6 months ago and is doing well. It is a girl named David. She is using an IUD for control She has had no major motor seizures since 2010. She has stopped taking all antiepileptic drugs. Shesays that she is having minor events of dizziness only when she does not get enough to eat or is overtired. As noted earlier, her last 24-hour ambulatory EEG done here in 2016 was completely normal. However no events were [...] Outpatient Prescriptions Medication Sig Dispense Refill ??? levonorgestrel (MIRENA) 20 mcg/24 hr (5 years) IUD 1 each by Intrauterine route once for 1 dose. 1 each 0 No current facility-administered medications for this visit. Allergies: Review of patient's allergies indicates no known allergies. Physical Exam: BP 122/66 (BP Location (NBP): Right arm, Patient Position: Sitting, BP Cuff Sizes: Adult (25-34 cm)) Pulse 94 Ht 165.1 cm (5' 5) Comment: reported Wt 104.8 kg (231 lb) BMI 38.44 kg/m2 HEENT: Normal Heart: Normal S1, S2, [...] (with Diff) ??? Lamotrigine Lvl = 2.3 No additional testing today EKG: EEG: Several EEGs have been normal awake and asleep, including some where the patient smaller spells were captured without associated EEG abnormality. Recent 24-hour ambulatory EEG December 2016 shows normal background and no interictal epileptiform abnormalities and no spells, large or small, were captured X-Ray: CAT scans: MRI scans: Normal here in 2006 Impression and suggestions: The patient is doing quite well. Grand mal seizures appear to be in remission since 2010 on or off medication. The patient appeared subsequently to be suffering from simple partial seizures or epileptic auras. There is a strong family history of epilepsy with the patient's grandfather having a left frontal cortical dysplasia. I suspect that the whole family suffer from a neuronal migration disorder that is sometimes microscopic and sometimes visible on MRI. It is not certain that the most recent small spells were epileptic in character. She has stopped all antiepileptic medication without recurrence of grand mal, or small spells. At this point I think it is reasonable to leave her off medication and see how she does. I note that she is at home alone with the baby in the evenings and night. In the daytime baby is looked after by others. I do not think that the risk of leaving her off antiepileptic medication is excessive. Thank you for this consultation. I have not requested a follow-up appointment but will be happy to see her as needed Ferdinand Mills MD [place] [address] Pager: [phone], #[phone] Email: [email or web address] CC: Jerrica EAGLE documented in this encounter Plan of Treatment Not on file documented as of this encounter Visit Diagnoses Diagnosis Seizure disorder Unspecified epilepsy without mention of intractable epilepsy documented in this encounter Care Teams Assembly Instructions Writer Relationship Specialty Start Date End Date Jerrica Healy PA [address] [place] [address] PCP - General Family Medicine 12/26/15 documented as of this encounter
--- OUTSIDE RECORDS SUMMARY | 2024-02-17 13:32 | XMS_ITS | Encounter Summary ---
Author Organization [facility] [place] [address] Care Team Providers Care Digital Cartographer Name Role Phone Jerrica Healy Primary Care Provider Reason for Visit * Reason Onset Date Comments Follow-up 02/27/2021 Encounter Details Date Type Department Care Team (Late st Contact Info) Description 02/27/2021 [place] [phone] Melani Blackmon [facility] GENETICS & [place] [address] Follow-up Social History Tobacco Use Types Packs/Day Years [...] encounter Miscellaneous Notes * Telephone Encounter - Melani Blackmon [facility] - 02/27/2021 7:52 PM EDT GENETICS FOLLOW-UP Federica Acosta 1995 [id number] 02/27/2021 Federica Acosta [address] [place] [id number] We have previously reviewed the available genetic testing options for genetic testing in you following Allyssa's test results earlier this year. You had elected to proceed with testing and an at-home collection kit was delivered to you on 01/08/2021. The sample was never returned to the testing lab and the period of eligibility for no-charge follow-up family member testing has . At this point, if you were to use the provided kit and send it for testing, the lab will contact you directly to arrange payment for this testing service. Any coverage of this testing through insurance would require prior authorization and would likely require an appointment in genetics to initiatethat process. Sincerely, Melani Blackmon MS, [facility] Licensed Genetic Counselor [phone] documented in this encounter Plan of Treatment Not on file documented as of this encounter Visit Diagnoses Diagnosis Family history of seizures Family history of other condition Family history of genetic disorder Family history of other condition Seizures Other convulsions documented in this encounter Care Teams Digital Cartographer Relationship Specialty Start Date End Date Jerrica Healy PA [address] [place], [place] [id number] PCP - General Family Medicine 12/26/15 documented as of this encounter
--- OUTSIDE RECORDS SUMMARY | 2024-02-17 13:32 | XMS_ITS | Encounter Summary ---
Author Organization [facility] Address [facility] [place] [address] Care Team Providers Care Live Study Manager Name Role Phone Jerrica Healy Primary Care Provider [phone] Encounter Details Date Type Department Care Team (Latest Contact Info) Description 12/27/2016 10:03 AM EDT - 12/27/2016 11:59 PM EDT Hospital En[place] [phone] Discharge Disposition: Home Social History Tobacco Use [...] Sig Dispensed Refills Start Date End Date pyridoxine, vitamin B6, (VITAMIN B6) 50 mg Tablet Take 50 mg by mouth as needed. 11/28/2017 CEPHALEXIN (KEFLEX ORAL) Take by mouth 2 times daily. 12/28/2016 lamoTRIgine (LAMICTAL) 100 mg Tablet Take 1 tablet by mouth 3 times daily. 90 tablet 5 11/25/2016 12/28/2016 vitamin with [id number] Tablet Take by mouth daily. 11/28/2017 folic acid (FOLVITE) 1 mg Tablet Take 1 pill in AM and 2 pills in PM. 30 tablet 12 09/13/2016 03/30/2017 documented as of this encounter Plan of Treatment Not on file documented as of this encounter Visit Diagnoses Not on filedocumented in this encounter Care Teams Live Study Manager Relationship Specialty Start Date End Date Jerrica Healy PA [address] [place], [place] [phone] PCP - General Family Medicine 12/26/15 documented as of this encounter
--- OUTSIDE RECORDS SUMMARY | 2024-02-17 13:33 | XMS_ITS | Encounter Summary ---
Author Organization [facility] Address [facility] [place] [address] Care Team Providers Care Wrapping Machine Operator Name Role Phone Unavailable Primary Care Provider Unavailabl e Reason for Referral * Consultation (Routine) - Closed Specialty Diagnoses / Procedures Referred By Monster martinez Referred To Contact Otolaryngology Diagnoses Dizziness Ear pain Nayla Dillon MD [facility] [place] [address] Pura Hill MD [facility] [place] [address] Referral ID Status Reason Start Date Expiration Date V isits Requested Visits Authorized [id number] Closed Specialty Service Requested 04/08/2011 10/05/2011 1 1 Reason for Visit * Reason Comments Epilepsy Here w/Mom for seizu re f/u Encounter Details Date Type Department Care Team (Late st Contact Info) Description 04/08/2011 12:45 PM EDT Office [place] [address] Nayla Dillon MD [facility] [place] [address] Sphenoid cyst; Seizures cerebral; Dizziness; Headache; Ear pain Discharge Disposition: Home Social History Tobacco Use Types Packs/Day Years Used Date Smoking Tobacco: Never Smokeless Tobacco: Never Comments:no smokers in house hold Alcohol Use Standard Drinks/Week Comments Not Asked 0 (1 standard drink = 0.6 oz pur e alcohol) Sex and Gender Information Value Date Recorded Sex Assigned at Not on file Gender Identity Not on file Sexual Orientation Not on file documented as of this encounter Last Filed Vital Signs Vital Sign Reading Time Taken Comments Blood Pressure 128/61 04/08/2011 1:13 PM EDT Pulse 106 04/08/2011 1:13 PM EDT Temperature - - Respiratory Rate 20 04/08/2011 1:13 PM EDT Oxygen Saturation - - Inhaled Oxygen Concentration - - Weight 91.4 kg (201 lb 9.6 oz) 04/08/2011 1:13 P M EDT Height 160.7 cm (5' 3.27) 04/08/2011 1:13 PM ED T Head Circumference 55.8 cm 04/08/2011 1:13 PM EDT Body Mass Index 35.41 04/08/2011 1:13 PM EDT Body Mass Index Percentile 99.25% 04/08/2011 1:1 3 PM EDT Growth Chart: CDC (Girls, 2- 20 Years) documented in this encounter Progress Notes * Nayla Dillon MD - 04/08/2011 1:44 PM EDT Federica Acosta was seen for a followup of seizure disorder with episodic dizziness, headaches and ear pain on 04/08/2011. INTERVAL HISTORY: Since Federica was last seen in neurology three months ago, indicates she is 15 and 10/12 years of age. She is a right-handed eighth grader and is accompanied by her mother. Review of the records and history in the office indicates that Federica had an EEG done in December, which showed some left-sided slowing. No seizure or dizzy episodes were appreciated. She started Keppra because of what was thought to be two motor seizures. 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 This was evaluated by ENT and found to be incidental. On 01/14/2011, mother called to say she had a generalized tonic-clonic seizure. Keppra was increased to 150 mg b.i.d. There have been no subsequent motor seizures. In late January, she had some outside blood work at our request, which included a Keppra level of 39, normal CBC, complete metabolic profile, and TSH. Federica and her mother are concerned about persistent dizzy episodes in fourth grade. She described 30 to 45 seconds of left temporal pain, left ear pain, and the room moving. There is no diaphoresis, nausea or vomiting. There is no loss of consciousness. She is awake and visually attentive. The episodes are not triggered by change in position or skipping meals. She is having four to five episodes per day. She reports she is unstable walking during the episode, but immediately afterward is back at baseline. Over the years, the episodes have increased in frequency. MEDICATIONS: Her current neurologic medication is Keppra 1500 mg b.i.d. She also has Diastat for rescue. SHE HAS NO ALLERGIES TO MEDICATIONS. PHYSICAL EXAMINATION: Physical exam shows a well-appearing overweight young lady without seizure activity. Cardiac exam is benign. There is no murmur or irregularity. Chest is clear to auscultation. Thyroid is not enlarged. She is normocephalic. Vital signs indicate a blood pressure of 128/61, heart rate of 106, and respiratory rate of 20. Her weight is 91 kg. Spine is straight. There are no neurocutaneous lesions. Gait is normal heel toe. Romberg is negative. She can stand on her toes as well as her heels. Jump is normal. Tandem is normal. Mental status and language are without errors. Pupils are equal and reactive. Eye movements are full and conjugate. [place] are full to confrontation. Face is symmetric. Hearing is intact bilaterally. Tongue is midline. Palate elevates symmetrically. There is no appendicular ataxia. There is no pronator drift. Deep tendon reflexes are 1+ and symmetric. The Barany maneuver was negative in all three positions. ASSESSMENT: 1. Symmetric nonfocal elemental neurologic exam. 2. History of two motor seizures, doing well on monotherapy with Keppra. Prior EEG with some minimal right-sided slowing without epileptogenic features. 3. Four to five-year history of brief episodes of dizziness of unclear etiology. None have been captured on previous EEGs. The associated headache lasts only a minute and migraine would seem unlikely. ENT evaluations have reportedly been negative. 4. Normal brain MRI is reassuring. RECOMMENDATIONS: 1. Continue current Keppra regimen. 2. Video EEG to be arranged in an attempt to capture episode of dizziness. 3. Mother has requested a referral to ENT here and I have ordered this. 4. If all the above is negative, would consider a referral to cardiology. 5. If all diagnostic testing and evaluation is negative, would consider a trial of anti-migraine treatment in the event that the dizzy episodes represent migraine. The brevity of the episodes, however, and the lack of significant headache are used against this. 6. Follow up in the office in seven months' time or sooner if indicated. documented in this encounter Plan of Treatment Scheduled Referrals Name Type Priority Associated Diagnoses Orde r Schedule REFERRAL TO ENT Outpatient Referral Routine Dizziness Ear pain Ordered: 04/08/2011 documented as of this encounter Visit Diagnoses Diagnosis Sphenoid cyst Other diseases of nasal cavity and sinuses Seizures cerebral Acute, but ill-defined, cerebrovascular disease Dizziness Dizziness and giddiness Headache(784.0) Headache Ear pain Otalgia, unspecified documented in this encounter
--- OUTSIDE RECORDS SUMMARY | 2024-02-17 13:33 | XMS_ITS | Encounter Summary ---
Author Organization [facility] [place] [address] Care Team Providers Care Animal Anatomy Teacher Name Role Phone Unavailable Primary Care Provider Unavailabl e Encounter Details Date Type Department Care Team (Late st Contact Info) Description 02/09/2011 External Results [place] [address] Jemal Perez MD [facility] [place] [address] Social History Tobacco Use Types Packs/Day Years Used Date Smoking Tobacco: Never Comments:no smokers in house hold [...] Procedure Name Priority Date/Time Associated Diagnosis Comments LAB SCAN Routine 02/02/2011 LAB SCAN Routine 02/02/2011 documented in this encounter Results * Scan Doc: Lab (02/02/2011) Jemal Perez MD MEDIA MGR SCAN EXT ORDR/RSLT * Scan Doc: Lab (02/02/2011) Jemal Perez MD MEDIA MGR SCAN EXT ORDR/RSLT documented in this encounter Visit Diagnoses Not on filedocumented in this encounter
--- OUTSIDE RECORDS SUMMARY | 2024-02-17 13:33 | XMS_ITS | Encounter Summary ---
Author Organization [facility] Address [facility] [place] [address] Care Team Providers Care Drafter Civil (Cad) Name Role Phone Unavailable Primary Care Provider Unavailabl e Reason for Visit * Reason Onset Date Comments Results 06/14/2011 labs- 06/10/11 Encounter Details Date Type Department Care Team ([facility] st Contact Info) Description 06/14/2011 Telephone Pediatric [place] [phone] Nayla Dillon MD [facility] DR PEDIATRIC [place] [address] Results (labs- 06/10/11) Social History Tobacco Use Types Packs/Day Years [...] encounter Miscellaneous Notes * Telephone Encounter - Magalie Magana RN - 06/15/2011 1:06 PM EST 06/15/11: I phoned [facility] to obtain lab results. 06/10/11: Carbamazepine level 12.3 On Carbatrol 400mg, twice daily (level range 4-12) Complete Blood Count- Normal Basic Metabolic Panel- Normal- electrolytes, calcium, kidney functions This level is slightly lower than Federica's first Carbatrol level of 13.6 on 05/27/11. If Federica is stilling having side effects or dizziness, it may be helpful to lower her dose slightly. 06/15/11: I phoned Mom with results, but was only able to leave a message. 06/17/11: I phoned again (home and cell#), leaving a message. I will send a copy of this note to home. * Telephone Encounter - Cecilia Napier - 06/14/2011 4:13 PM EST Mom is looking for the lab results from last week (drawn at [facility] in [place], [place] and to be faxed to us). Please call mom with this info. documented in this encounter Plan of Treatment Not on file documented as of this encounter Visit Diagnoses Not on filedocumented in this encounter
--- OUTSIDE RECORDS SUMMARY | 2024-02-17 13:33 | XMS_ITS | Encounter Summary ---
Author Organization [facility] Address [facility] [place] [address] Care Team Providers Care Airplane Dispatch Clerk Name Role Phone Jerrica Healy Primary Care Provider [phone] Reason for Visit * Reason Onset Date Comments Medication Refill 03/30/2016 Encounter Details Date Type Department Care Team (Late st Contact Info) Description 03/30/2016 Telephone [place] [address] Ferdinand Mills MD [facility] [place] [address] Medication Refill Social History Tobacco Use Types Packs/Day Years Used Date Smoking Tobacco: Former Cigarettes Q uit: 01/26/2016 Smokeless Tobacco: Never Alcohol Use Standard Drinks/Week Comments No 0 (1 standard drink = 0.6 oz pur e alcohol) Sex and Gender Information Value Date Recorded Sex Assigned at Not on file Gender Identity Not on file Sexual Orientation Not on file documented as of this encounter Miscellaneous Notes * Telephone Encounter - Jerrica Ray CMA - 03/31/2016 8:59 AM EDT Refill request prepped and sent to Dr. Mills for review and signature. * Telephone Encounter - Jerrica Ray CMA - 03/30/2016 11:51 AM EDT Call out to patient for refill request info. * Telephone Encounter - Dimitrios Orellana - 03/30/2016 11:39 AM EDT Name of Med: Carbatrol Strength of Pills: 200mg Dosing Directions: TAKE 2 CAPSULES BY MOUTH TWICE A DAY 30 or 90 Day: 90 [facility]: [facility] [place] Last Appointment: 02/10/16 Next Appointment: 08/16/16 Is Patient out of Medication?: no documented in this encounter Plan of Treatment Not on file documented as of this encounter Visit Diagnoses Not on filedocumented in this encounter Care Teams Airplane Dispatch Clerk Relationship Specialty Start Date End Date Jerrica Healy PA [address] [place] [id number] PCP - General Family Medicine 12/26/15 documented as of this encounter
--- OUTSIDE RECORDS SUMMARY | 2024-02-17 13:33 | XMS_ITS | Encounter Summary ---
Author Organization [facility] [place] [address] Care Team Providers Care Pilot Plant Supervisor Name Role Phone Unavailable Primary Care Provider Unavailabl e Reason for Visit * Reason Onset Date Comments Medication Refill 10/16/2013 Encounter Details Date Type Department Care Team (Late st Contact Info) Description 10/16/2013 Refill [place] [address] Nayla Dillon MD [facility] DR [place] [address] Seizure disorder (Primary Dx) Social History Tobacco Use Types [...] of this encounter Visit Diagnoses Diagnosis Seizure disorder- Primary Unspecified epilepsy without mention of intractable epilepsy documented in this encounter
--- OUTSIDE RECORDS SUMMARY | 2024-02-17 13:33 | XMS_ITS | Encounter Summary ---
Author Organization [facility] Address [facility] [place] [address] Care Team Providers Care Layout Former Name Role Phone Jerrica Healy Primary Care Provider [phone] Reason for Visit * Reason Onset Date Comments Other 09/10/2016 Encounter Details Date Type Department Care Team (Late st Contact Info) Description 09/10/2016 [place] [phone] Aleksey Shea MD [facility] [place] [address] Other Social History Tobacco Use Types Packs/Day [...] as of this encounter Miscellaneous Notes * Addendum Note - Aleksey Shea MD - 09/13/2016 10:59 AM ESTAddended by: ALEKSEY SHEA on: 09/13/2016 10:59 AM Modules accepted: Orders * Telephone Encounter - Aleksey Shea MD - 09/13/2016 10:55 AM EST I spoke with the patient. She's been taking Carbatrol very erratically. She denies having had any seizures at all, small or large Her MASTER ESTHETICIAN does not want to be on it at all. I recommended a crossover from Tegretol to Lamictal. The patient was advised to stay on Carbatrol 200 mg twice a day for now, she will start Lamictal 25mg twice a day. After 2 weeks she will increase the dose to 50 mg twice a day and completely stop the Carbatrol. After 2 more weeks she can go up on the dose of Lamictal to 100 mg twice a day. I'm also increasing her dosing of folate by adding an additional 3 mg daily. I'm scheduled to see her here in 3-4 weeks. Aleksey Shea MD Department [place] [address] Pager: [phone], #[phone] Email: [email or web address] * Telephone Encounter - KarynaTavia garcia RN - 09/10/2016 3:44 PM EST Reason for Call: Questions about medication in Patient Report: She states that the OB told her that her current seizure medication, carbatrol, is not safe in . She would like to know what Dr Shea thinks about this as she states that he told her previously that this medication is safe, but there are others that are safer.Patient is taking 800 mcg of folic acid daily in her vitaminPatient is about 6 week at this time. Patient states that she has not been taking the carbatrol regularly as she has had insurance issuesshe was without insurance for about 2 months.When she was unable to take it twice daily every day she was not having increased seizures, only when she went a week without medication. She has taken 2 tabs 2 days out of the last week and this has been how she has been taking it for the last 2 months.She has been buying some when I can. She now has insurance and can fill and start taking this again, but she wonders if she could maybe switch to one of the safer medications since she has not beentaking this one very much anyway.She states that she has not had any big seizures during this time. Plan/Intervention/Follow Up - Report forwarded to Dr Shea for review and comment. Pt/caller aware they will be called back with input when available and to call back in the interim if additional questions or change arise before they hear back from this office. Pt/caller agreeable to this plan. * Telephone Encounter - Tavia Troncoso RN - 09/10/2016 2:58 PM EST Message left requesting return call. * Telephone Encounter - Erica Padilla - 09/10/2016 2:10 PM EST Caller: Federica Best time to reach caller: Before 2:30pm - Informed caller that nurse will call back by the end of the day Best number to reach caller: [phone] Reason for call: Patient called to say that she is . She has questions regarding her medication. Please call to discuss. documented in this encounter Plan of Treatment Not on file documented as of this encounter Visit Diagnoses Diagnosis Seizures Other convulsions documented in this encounter Care Teams Layout Former Relationship Specialty Start Date End Date Jerrica Healy PA [address] [place] [address] PCP - General Family Medicine 12/26/15 documented as of this encounter
--- OUTSIDE RECORDS SUMMARY | 2024-02-17 13:33 | XMS_ITS | Encounter Summary ---
Author Organization [facility] [place] [address] Care Team Providers Care Provider Relations Specialist Name Role Phone Unavailable Primary Care Provider Unavailabl e Reason for Visit * Reason Onset Date Comments Medication Refill 11/04/2011 Encounter Details Date Type Department Care Team (Late st Contact Info) Description 11/04/2011 Refill [place] [address] Nayla Dillon MD [facility] [place] [address] Social History Tobacco Use Types Packs/Day Years [...]
--- OUTSIDE RECORDS SUMMARY | 2024-02-17 13:33 | XMS_ITS | Encounter Summary ---
[place] [address] Care Team Providers Care Special Procedure Technologist Name Role Phone Flavio Ordaz MD Primary Care Provider [phone] Reason for Visit * Reason Onset Date Comments Medication Refill 08/19/2015 Encounter Details Date Type Department Care Team (Late st Contact Info) Description 08/19/2015 Refill Pediatric [place] [phone] Brittany Tabares, INSURANCE POLICY ISSUE CLERK Social History Tobacco Use Types Packs/Day Years Used Date Smoking Tobacco: Passive Smo ke Exposure - Never Smoker Smokeless Tobacco: Never Alcohol Use Standard Drinks/Week Comments Not Asked [...] on filedocumented in this encounter Care Teams Special Procedure Technologist Relationship Specialty Start Date End Date Flavio Ordaz MD [address] [place] [address] [place] [address] PCP - General 11/12/14 12/25/15 documented as of this encounter
--- OUTSIDE RECORDS SUMMARY | 2024-02-17 13:33 | XMS_ITS | Encounter Summary ---
Author Organization [facility] [place] [address] Care Team Providers Care Clinical Medical Transcriptionist Name Role Phone Unavailable Primary Care Provider Unavailabl e Encounter Details Date Type Department Care Team (Late st Contact Info) Description 08/21/2014 Telephone Pediatric Neurology at [facility] [place] [address] Lilli Gonzalez, STUDIO HAND NEUROLOGY Social History Tobacco Use Types Packs/Day Years [...] encounter Miscellaneous Notes * Telephone Encounter - Lilli Gonzalez RN - 08/21/2014 9:56 AM EST I called and spoke with mom. She is wanting to know Federica Carbatrol level as when her dad ( Federica's gramp) was on an AED - when his levels got high- he had nausea, which is what Federica is complaining of yesterday and today. She does not live with her mom but has been texting her about n/v since yesterday after she drank some juice (newkind ? Mom not sure). She has had N/V several times, with a head ache/ dizziness. Afebrile.She did not keep down her Carbatrol dose last night, but did keep this am 's dose down. No seizures thus far per mom. Carbamazapine level = 8.9 - low theraputic Had been 9.1 in January 2013 and 8.19 March 2013. Alt/AST has always looked good but Recently they were AST=19, ALT=30. For this I will discuss with tomorrow and see her recommendations for rechecking these results. I explained this to mom. Meanwhile I discussed sx /s dehydration with mom. I advised Federica keep trying small amounts of fluids (g-alberto, popsicles). Know when the last time she urinated and make sure she does not go > 4-6 hours without. If she has a break through seizure at this point - we will know why. She's ill and missed a dose last night. Her last t/c seizure was January 2011 and her last dizzy spell seizure was May 2011. Mom will keep us informed. I will get back to mom with when to recheck liver enzymes. 08/[address] Dillon - no need to recheck her liver any time soon. It is lower than it has been and now almost normal. Mom informed. * Telephone Encounter - Lilli Gonzalez RN - 08/21/2014 9:56 AM EST ----- Message from Jaylyn Anguiano sent at 08/21/2014 9:01 AM EST ----- Contact: felipe Carlson Marie Mom is looking for Federica's lab results. Federica is complaining of feeling dizzy, sick to her stomach and trouble with her vision. You can reach Marie at [phone] * Telephone Encounter - Lilli Gonzalez RN - 08/21/2014 9:51 AM EST ----- Message from Jaylyn Anguiano sent at 08/21/2014 9:01 AM EST ----- Contact: felipe Carlson Marie Mom is looking for Federica's lab results. Federica is complaining of feeling dizzy, sick to her stomach and trouble with her vision. You can reach Marie at [phone] documented in this encounter Plan of Treatment Not on file documented as of this encounter Visit Diagnoses Not on filedocumented in this encounter
--- OUTSIDE RECORDS SUMMARY | 2024-02-17 13:33 | XMS_ITS | Encounter Summary ---
[facility] [place] [address] Care Team Providers Care Bakery Assistant Name Role Phone Unavailable Primary Care Provider Unavailabl e Encounter Details Date Type Department Care Team (Late st Contact Info) Description 04/21/2011 2:00 PM EDT [place] [address] Social History Tobacco Use Types Packs/Day Years [...]
--- OUTSIDE RECORDS SUMMARY | 2024-02-17 13:33 | XMS_ITS | Encounter Summary ---
Author Organization [facility] Address [facility] [place] [address] Care Team Providers Care Drilling Foreman Name Role Phone Unavailable Primary Care Provider Unavailabl e Reason for Visit * Reason Comments Follow-up With Dad: Ernst. Marlo or Concerns: none Encounter Details Date Type Department Care Team (Late st Contact Info) Description 03/15/2013 10:45 AM EDT Office Visit Pediatric [place] [phone] Nayla Dillon MD [facility] [address] [place] [address] Cerebral seizure (Primary Dx); Dizziness; Seizures; Seizure disorder Discharge Disposition: Home Social History [...] Sign Reading Time Taken Comments Blood Pressure 110/57 03/15/2013 10:27 AM EDT Pulse 87 03/15/2013 10:27 AM EDT Temperature - - Respiratory Rate 26 03/15/2013 10:27 AM EDT Oxygen Saturation - - Inhaled Oxygen Concentration - - Weight 95.3 kg (210 lb) 03/15/2013 10:27 AM EDT Height 164 cm (5' 4.57) 03/15/2013 10:27 AM EDT Body Mass Index 35.42 03/15/2013 10:27 AM EDT Body Mass Index Percentile 98.51% 03/15/2013 10: 27 AM EDT Growth Chart: [facility] (Girls, 2- 20 Years) documented in this encounter Patient Instructions * Patient Instructions* Nayla Dillon MD - 03/15/2013 11:08 AM EDT Blood tests today for carbatrol level, blood count and liver function. Continue carbatrol 200mg tabs, two tabs twice a day Follow up in 6 months time. documented in this encounter Progress Notes * Nayla Dillon MD - 03/15/2013 11:10 AM EDT Federica Acosta was seen for followup of seizure disorder on 03/15/2013. INTERVAL HISTORY: Since I saw Federica six months ago, indicates she is 15-9/12th years of age. Blood work at the last visit revealed a Carbatrol level of 9.9. CBC and LFTs were unremarkable. She tells me that there have been no interval seizures, i.e. paroxysmal dizziness. General health is described as good. 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 I am reminded that the EEG that revealed the episodic dizziness was done in 04/2011, and she has been seizure-free since that time. Current neurologic medications are Carbatrol 200 mg tabs, two tabs b.i.d. She has no allergies to medications. PHYSICAL EXAMINATION: Physical exam shows a well-appearing cooperative adolescent. Romberg is negative. Gait is normal. Tandem is normal. Language is fluent. Pupils are equal and round. Eye movements are full and conjugate. Face is symmetric. There is no pronator drift. There is no appendicular ataxia. Deep tendon reflexes are not increased. ASSESSMENT: 1. Symmetric nonfocal neurologic exam. 2. Paroxysmal dizziness, represents seizure, has been nicely suppressed on current Carbatrol regimen. 3. Due for Carbatrol related blood work. RECOMMENDATION: 1. Blood today for Carbatrol level, LFTs, and CBC. 2. Continue current Carbatrol regimen. Prescription was renewed. 3. 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 As long as someone is under the care of a doctor and has been seizure-free for six months, she can proceed with obtaining a permit. 4. Follow up in the office in six months' time or sooner if indicated. 5. At the next visit, we will likely consider whether or not a trial of weaning of the Carbatrol and/or followup EEG is indicated. documented in this encounter Plan of Treatment Not on file documented as of this encounter Procedures Procedure Name Priority Date/Time Associated Diagnosis Comments DIFFERENTIAL, AUTOMATED Routine 03/15/2013 11:25 AM EDT CBC (WITH DIFF) Routine 03/15/2013 11:25 AM EDT Seizures CARBAMAZEPINE LEVEL, TOTAL Routine 03/15/2013 11:25 AM EDT Seizures HEPATIC FUNCTION PANEL Routine 3 11:25 AM EDT Seizures documented in this encounter Results * Differential, Automated (03/15/2013 11:25 AM EDT) Neutrophil % 52.4 37.0 - 77.0 % CERNER MILLENNIUM Neutrophil Absolute 4.67 1.50 - 8.00 x10(3)/mcL CERNER MILLENNIUM Lymph % 36.2 20.0 - 50.0 % CERNER MILLENNIUM Lymphocytes Abs 3.2 1.2 - 5.2 x10(3)/mcL CERNER MILLENNIUM Monocyte % 6.9 2.0 - 12.0 % CERNER MILLENNIUM Monocyte Abs 0.6 0.2 - 1.0 x10(3)/mcL CERNER MILLENNIUM Eos % 4.0 0.0 - 7.0 % CERNER MILLENNIUM Eosinophils Abs 0.4 0.0 - 0.5 x10(3)/mcL CERNER MILLENNIUM Basophil % 0.2 0.0 - 2.0 % CERNER MILLENNIUM Baso Absolute 0.0 0.0 - 0.2 x10(3)/mcL CERNER MILLENNIUM Immature Gran % 0.30 0.00 - 0.66 % CERNER MILLENNIUM Comment: Immature granulocytes(IG's)percentage and absolute count will include metamyelocytes, myelocytes, and promyelocytes. Blood smears from CBCs yielding IG's will be scanned manually for concordance. If this scan disagrees with the automated IG or if promyelocytes are noted, a manual differential will be performed. Immature Gran Absolute 0.03 0.00 - 0.05 x10(3)/mcL CERNER MILLENNIUM Blood specimen (specimen) 03/15/2013 11:25 AM EDT 03/15/2013 11:30 AM EDT Nayla Dillon MD HEMATOLOGY ORDERABLE S Performing Organization Address [facility] de Phone Number CERNER MILLENNIUM * Hepatic Function Panel (03/15/2013 11:25 AM EDT) Protein, Total 7.1 6.4 - 8.3 gm/dL CERNER MILLENNIUM Albumin 4.3 3.2 - 5.2 gm/dL CERNER MILLENNIUM Aspartate Aminotransferase 17 5 - 30 unit/L CERNER MILLENNIUM Alanine Aminotransferase 22 0 - 25 unit/L CERNER MILLENNIUM Alkaline Phosphatase 148 80 - 250 unit/L CERNER MILLENNIUM Bilirubin, Total 0.2 <=1.0 mg/dL CERNER MILLENNIUM Bilirubin, Direct 0.1 0.0 - 0.3 mg/dL CERNER MILLENNIUM Blood specimen (specimen) 03/15/2013 11:25 AM EDT 03/15/2013 11:30 AM EDT Narrative Resulting Agency Comment Spec In Lab Nayla Dillon MD CHEMISTRY ORDERABLES Performing Organization Address [facility] Co de Phone Number CERNER MILLENNIUM * CBC (with Diff) (03/15/2013 11:25 AM EDT) White Blood Cell 8.9 4.5 - 13.0 x10(3)/mcL CERNER MILLENNIUM Red Blood Cell 4.46 4.10 - 5.10 x10(6)/mcL CERNER MILLENNIUM Hemoglobin 13.1 12.0 - 16.0 gm/dL CERNER MILLENNIUM Hematocrit 39.9 36.0 - 46.0 % CERNER MILLENNIUM Mean Cell Volume 89.5 76.0 - 98.0 fL CERNER MILLENNIUM Mean Cell Hemoglobin 29.4 25.0 - 35.0 pg CERNER MILLENNIUM Mean Cell Hemoglobin Concentration 32.8 32.0 - 36.5 gm/dL CERNER MILLENNIUM Platelet 254 145 - 370 x10(3)/mcL CERNER MILLENNIUM RDW Standard Deviation 42.2 35.0 - 46.0 fL CERNER MILLENNIUM RDW coefficient of variation 13.1 10.9 - 14.4 % CERNER MILLENNIUM Mean Platelet Volume 9.2 9.0 - 12.0 fL CERNER MILLENNIUM Blood specimen (specimen) 03/15/2013 11:25 AM EDT 03/15/2013 11:30 AM EDT Narrative Resulting Agency Comment Spec In Lab Nayla Dillon MD HEMATOLOGY ORDERABLE S Performing Organization Address City/[facility] Co de Phone Number CERALENA MCKEON * Carbamazepine level, total (03/15/2013 11:25 AM EDT) Carbamazepine 8.9 8.0 - 12.0 mg/L CERNER MILLENNIUM Comment: Therapeutic range: ??8-12 mg/L Toxic: ??> 12 mg/L Blood specimen (specimen) 03/15/2013 11:25 AM EDT 03/15/2013 11:30 AM EDT Narrative Resulting Agency Comment Spec In Lab Nayla Dillon MD CHEMISTRY ORDERABLES Performing Organization Address City/State/[facility] Co de Phone Number SWEETIE MCKEON documented in this encounter Visit Diagnoses Diagnosis Cerebral seizure- Primary Acute, but ill-defined, cerebrovascular disease Dizziness Dizziness and giddiness Seizures Other convulsions Seizure disorder Unspecified epilepsy without mention of intractable epilepsy documented in this encounter
--- OUTSIDE RECORDS SUMMARY | 2024-02-17 13:33 | XMS_ITS | Encounter Summary ---
Author Organization [facility] [place] [address] Care Team Providers Care Music Critic Name Role Phone Flavio Ordaz MD Primary Care Provider [phone] Reason for Visit * Reason Onset Date Comments Medication Refill 02/14/2015 Encounter Details Date Type Department Care Team (Late st Contact Info) Description 02/14/2015 Telephone [place] [phone] Magalie Magana, machine setter sheet metal Refill Social History Tobacco Use Types Packs/Day [...] Telephone Encounter - Magalie Magana RN - 02/14/2015 3:49 PM EDT ----- Message from Leyla Roy sent at 02/14/2015 3:21 PM EDT ----- Contact: Emile Mckeon Lit [place] [phone] Mom phoned stating pharmacy filled carBAMazepine (CARBATROL) 200 mg Cap, Multiphasic Release 12 hr with generic and Federica has always been on brand name. Mom requests a new prescription for Brand Name be sent in. Please call mom with any questions. +++ Rx sent in. documented in this encounter Plan of Treatment Not on file documented as of this encounter Visit Diagnoses Diagnosis Seizure disorder Unspecified epilepsy without mention of intractable epilepsy documented in this encounter Care Teams Music Critic Relationship Specialty Start Date End Date Flavio Ordaz MD [address] [place] [address] PCP - General 11/12/14 12/25/15 documented as of this encounter
--- OUTSIDE RECORDS SUMMARY | 2024-02-17 13:33 | XMS_ITS | Encounter Summary ---
[place] [address] Care Team Providers Care Fancy Stitcher Name Role Phone Flavio Ordaz MD Primary Care Provider [phone] Reason for Visit * Reason Onset Date Comments Medication Refill 02/12/2015 Encounter Details Date Type Department Care Team (Late st Contact Info) Description 02/12/2015 Refill [place] [phone] Brittany Tabares, WEDDING COORDINATOR Seizure disorder Social History Tobacco Use Types [...] epilepsy documented in this encounter Care Teams Fancy Stitcher Relationship Specialty Start Date End Date Flavio Ordaz MD [address] [place] [address] PCP - General 11/12/14 12/25/15 documented as of this encounter
--- OUTSIDE RECORDS SUMMARY | 2024-02-17 13:33 | XMS_ITS | Encounter Summary ---
Author Organization [facility] [place] [address] Care Team Providers Care Office Analyst Name Role Phone Jerrica Healy Primary Care Provider [phone] Reason for Visit * Reason Comments Procedure Encounter Details Date Type Department Care Team (Latest Contact Info) Description 11/29/2016 1:00 PM EDT - 11/29/2016 11:59 PM EDT Hospital [place] [address] Seizure disorder Discharge Disposition: Home Social History [...] 90 tablet 5 11/25/2016 12/28/2016 vitamin with bmwqmbqg-Gh-Llvz-FA Tablet Take by mouth daily. 11/28/2017 folic acid (FOLVITE) 1 mg Tablet Take 1 pill in AM and 2 pills in PM. 30 tablet 12 09/13/2016 03/30/2017 documented as of this encounter Procedure Notes * Hector Esparza MD - 11/29/2016 2:19 PM EDTAssociated Order(s): EEG AWAKE, ASLEEP, DROWSY Procedure(s): EEG INNC. RECORDING AWAKE AND ASLEEP, W. HYPERVENT/PHOTIC STIMU PRFM Pre-Procedure Diagnose(s): Seizure disorder [facility] Department of Neurology Out Patient Routine EEG Report Name of the Patient: Federica Acosta Date of : 1995 Date of Service: 11/29/2016 Referring physician: Janelle Mills MD Interpreting physician: Dr. Esparza BRIEF HISTORY: Federica Acosta is a 21 y.o. year old patient with seizures for evaluation MEDICATIONS: Current Outpatient Prescriptions Medication Sig Dispense Refill ??? lamoTRIgine (LAMICTAL) 100 mg Tablet Take 1 tablet by mouth 3 times daily. 90 tablet 5 ??? vitamin with cgyjlvuh-Ey-Pfdo-FA Tablet Take by mouth daily. ??? folic acid (FOLVITE) 1 mg Tablet Take 1 pill in AM and 2 pills in PM. 30 tablet 12 No current facility-administered medications for this encounter. METHODS: A 21 channel digitized electroencephalogram was performed in the [facility] Clinical Neurophysiology Laboratory. The 10/20 international system of electrode placement was used and bipolar and referential electrode montages were recorded. In addition to EEG the patient was monitored for EKGand lateral/vertical eye movements. Video was recorded during the session. The duration of the recording was 30 minutes. FLAT POLISHER'S REPORT: Performed by: AT Patient was sleep deprived. Sleep was not attained. Photic stimulation was performed. Hyperventilation was not performed. Effort was was not adequate. Movement and other artifact was not significant. Comments: none ELECTROENCEPHALOGRAPHER'S REPORT: Background During the awake state with the eyes closed the background consisted of a normal amplitude, 9 Hz posterior reactive rhythm that attenuated appropriately with eye opening. Beta activity was distributed diffusely with an anterior predominance. There was a normal anterior-posterior voltage gradient. With eye opening the background activity changed to a low voltage mixture of alpha, beta, and occasional theta range frequencies. There were no significant asymmetries of background activity noted. Sleep Stage II sleep was not obtained and consisted of symmetrical sleep spindles and vertex sharp waves. Hyperventilation Not performed Photic Stimulation Photic stimulation using a step-avendano increase in photic frequency varying from 1-21 Hertz resulted in bilateral driving responses at 11-21 Hertz but no appearance of abnormal activity. Abnormal EEG Activity None EKG EKG revealed normal sinus rhythm. PRIOR EE12/2010 routine EEG This EEG is probably normal during the awake and sleep states as well as during the activation procedures of hyperventilation and photic stimulation. The asymmetric high amplitude slow activity during hyperventilation is of unclear clinical significance. INTERPRETATION: This EEG is normal during the awake and drowsy states as well as during the activation procedure ofphotic stimulation. Eye fluttering episodes occurred during photic stimulation, without electrographic correlate. No seizures were noted during the EEG. CLINICAL CORRELATION: This is a normal EEG without any epileptiform activity or focal abnormalities which decreases likelihood of epileptic seizures. A normal EEG does not exclude the diagnosis of epilepsy and it remains a clinical diagnosis. If there remains clinical suspicion please consider getting a repeat EEG. Chad Butler MD Epilepsy Fellow #[id number] 11/30/2016 9:18 AM. CC: SHAGUFTA Nolasco EPILEPSY ATTENDING ADDENDUM - I reviewed the EEG with the DRY MILL WORKER/Epilepsy fellow, and I agree with the interpretation as documented. Hector Esparza MD, PhD [employer] Applications Analyst of Neurology [facility] Clinical Neurophysiology Laboratory documented in this encounter Plan of Treatment Not on file documented as of this encounter Procedures Procedure Name Priority Date/Time Associated Diagnosis Comments EEG INNC. RECORDING AWAKE AND ASLEEP, W. HYPERVENT/PHOTIC STIMU PRFM Routine 12/01/2016 2:51 PM EDT Seizure disorder documented in this encounter Results * EEG INNC. RECORDING AWAKE AND ASLEEP, W. HYPERVENT/PHOTIC STIMU PRFM (12/01/2016 2:51 PM EDT) Narrative Hector Esparza MD - 12/01/2016 2:51 PM EDT Hector Esparza MD ? 12/01/2016 ??2:51 PM [facility] Department of Neurology Out Patient Routine EEG Report Name of the Patient: ??Federica Acosta Date of : ?1995 Date of Service: ?11/29/2016 Referring physician: ?Janelle Mills MD Interpreting physician: Dr. Esparza BRIEF HISTORY: Federica Acosta is a 21 y.o. year old patient with seizures for evaluation MEDICATIONS: Current Outpatient Prescriptions Medication Sig Dispense Refill ? ? lamoTRIgine (LAMICTAL) 100 mg Tablet Take 1 tablet by mouth 3 times daily. 90 tablet 5 ? ? vitamin with fudbhkbw-Xl-Jagj-FA Tablet Take ??by mouth daily. ? folic acid (FOLVITE) 1 mg Tablet Take 1 pill in AM and 2 pills in PM. 30 tablet 12 No current facility-administered medications for this encounter. ?? METHODS: A 21 channel digitized electroencephalogram was performed in the [facility] Clinical Neurophysiology Laboratory. The 10/20 international system of electrode placement was used and bipolar and referential electrode montages were recorded. ??In addition to EEG the patient was monitored for EKG and lateral/vertical eye movements. Video was recorded during the session. The duration of the recording was 30 minutes. FLAT POLISHER'S REPORT: Performed by: AT Patient was sleep deprived. Sleep was not attained. Photic stimulation was performed. Hyperventilation was not performed. Effort was was not adequate. Movement and other artifact was not significant. Comments: none ELECTROENCEPHALOGRAPHER'S REPORT: Background During the awake state with the eyes closed the background consisted of a normal amplitude, 9 Hz posterior reactive rhythm that attenuated appropriately with eye opening. Beta activity was distributed diffusely with an anterior predominance. There was a normal anterior-posterior voltage gradient. With eye opening the background activity changed to a low voltage mixture of alpha, beta, and occasional theta range frequencies. There were no significant asymmetries of background activity noted. Sleep Stage II sleep was not obtained and consisted of symmetrical sleep spindles and vertex sharp waves. Hyperventilation Not performed Photic Stimulation Photic stimulation using a step-avendano increase in photic frequency varying from 1-21 Hertz resulted in bilateral driving responses at 11-21 Hertz but no appearance of abnormal activity. Abnormal EEG Activity None EKG EKG revealed normal sinus rhythm. PRIOR EE12/2010 routine EEG This EEG is probably normal during the awake and sleep states as well as during the activation procedures of hyperventilation and photic stimulation. The asymmetric high amplitude slow activity during hyperventilation is of unclear clinical significance. INTERPRETATION: This EEG is normal during the awake and drowsy states as well as during the activation procedure of photic stimulation. Eye fluttering episodes occurred during photic stimulation, without electrographic correlate. ??No seizures were noted during the EEG. CLINICAL CORRELATION: This is a normal EEG without any epileptiform activity or focal abnormalities which decreases likelihood of epileptic seizures. A normal EEG does not exclude the diagnosis of epilepsy and it remains a clinical diagnosis. If there remains clinical suspicion please consider getting a repeat EEG. Chad Butler MD Epilepsy Fellow #[id number] 11/30/2016 9:18 AM. CC: SHAGUFTA Nolasco EPILEPSY ATTENDING ADDENDUM - I reviewed the EEG with the DRY MILL WORKER/Epilepsy fellow, and I agree with the interpretation as documented. Hector Esparza MD, PhD [employer] Applications Analyst of Neurology [facility] [place] Clinical Neurophysiology Laboratory Ferdinand Mills MD NEUROLOGY ORDERABLES documented in this encounter Visit Diagnoses Diagnosis Seizure disorder Unspecified epilepsy without mention of intractable epilepsy documented in this encounter Care Teams Office Analyst Relationship Specialty Start Date End Date Jerrica Healy PA [address] [place] [id number] PCP - General Family Medicine 12/26/15 documented as of this encounter
--- OUTSIDE RECORDS SUMMARY | 2024-02-17 13:33 | XMS_ITS | Encounter Summary ---
Author Organization [facility] [place] [address] Care Team Providers Care Die Trouble Shooter Name Role Phone Jerrica Healy Primary Care Provider [phone] Reason for Referral * Consultation (Routine) - Closed Specialty Diagnoses / Procedures Referred By Monster martinez Referred To Contact Neurology Diagnoses Seizures Nayla Dillon MD [facility] [place] [address] [facility] Neurology [address] [place] [phone] Referral ID Status Reason Start Date Expiration Date V isits Requested Visits Authorized [id number] Closed Consult, Test & Treat 12/26/2015 12/25/2016 1 1 Reason for Visit * Reason Comments Follow-up Encounter Details Date Type Department Care Team (Late st Contact Info) Description 12/26/2015 11:30 AM EDT Office [place] [phone] Nayla Dillon MD [facility] [place] [address] Dizziness; Seizures Social History Tobacco Use Types Packs/Day Years [...] Sign Reading Time Taken Comments Blood Pressure 132/72 12/26/2015 11:32 AM EDT Pulse 108 12/26/2015 11:32 AM EDT Temperature - - Respiratory Rate 18 12/26/2015 11:32 AM EDT Oxygen Saturation - - Inhaled Oxygen Concentration - - Weight 117.9 kg (260 lb) 12/26/2015 11:32 AM EDT Height 165 cm (5' 4.96) 12/26/2015 11:32 AM EDT Body Mass Index 43.32 12/26/2015 11:32 AM EDT Body Mass Index Percentile 99.57% 12/26/2015 11: 32 AM EDT Growth Chart: [facility] (Girls, 2- 20 Years) documented in this encounter Patient Instructions * Patient Instructions* Nayla Dillon MD - 12/26/2015 11:52 AM EDT Blood today for carbatrol level, blood count and liver function. Continue carbatrol 2 Tabs twice a day (200mg each tab) Referral was made to Adult Neurology; you will receive a call from their office re an appt. documented in this encounter Progress Notes * Nayla Dillon MD - 12/26/2015 11:56 AM EDT Federica Acosta was seen for followup of seizure disorder on 12/26/2015. INTERVAL HISTORY: Since I saw Federica four months ago, indicates she is 20 and 6/14 years of age. There have been no interval seizures. At the last visit, we talked about a followup EEG to consider anticonvulsant wean. Federica chose not to schedule the EEG as she would prefer to continue on the Carbatrol. Her last seizure was approximately four years ago and she feels more secure taking the Carbatrol. She is currently working in [employer] The episodes of dizziness upon arising in the morning have resolved. CURRENT MEDICATION: Carbatrol, 200 mg tabs, 2 tabs b.i.d. She has no allergies to medications. Blood work at the last visit showed a Carbatrol level of 8.2. CBC and LFTs were normal. PHYSICAL EXAM: Shows a well-appearing, cooperative, overweight, young lady. Cardiac exam is benign. Chest is clear. Neck is supple. No seizure activity is normal. Gait is normal. Romberg is negative. Tandem is normal. Mental status and language are age appropriate without error. Pupils are equal and round. Eye movements are full and conjugate. Face is symmetric. There is no pronator drift. There is no appendicular ataxia. Deep tendon reflexes are 1+ and symmetric. ASSESSMENT: 1. Symmetric, nonfocal, elemental neurologic exam. 2. History of reported tonic clonic seizures in 2010 and then subsequent episodes of abdominal distress which may or may not have represented seizures. 3. Normal MRI and EEG in the past has been reassuring. 4. On Carbatrol for several years, not interested in weaning. RECOMMENDATIONS: 1. Blood today for Carbatrol level, CBC, and LFTs. 2. I gave her the option of continuing in [facility] Neuro, referral to Adult Neurology at [facility] or referral to Adult Neurology locally and she would prefer Adult Neurology at [facility] so a referral was placed. documented in this encounter Plan of Treatment Scheduled Referrals Name Type Priority Associated Diagnoses Orde r Schedule Referral to Neurology Outpatient Referral Routine Seizures Ordered: 12/26/2015 documented as of this encounter Procedures Procedure Name Priority Date/Time Associated Diagnosis Comments HEMOGRAM Routine 12/26/2015 12:28 PM EDT Seizures DIFFERENTIAL, AUTOMATED Routine 12/26/2015 12:28 PM EDT Seizures CBC (WITH DIFF) Routine 12/26/2015 12:28 PM EDT Seizures CARBAMAZEPINE LEVEL, TOTAL Routine 12/26/2015 12:28 PM EDT Seizures HEPATIC FUNCTION PANEL Routine 6 12:28 PM EDT Seizures documented in this encounter Results * Differential, Automated (12/26/2015 12:28 PM EDT) Neutrophil % 53.9 % [facility] Neutrophil Absolute 4.12 1.50 - 6.30 x10(3)/[facility] [place] [facility] Lymph % 35.2 % [facility] Lymphocytes Abs 2.7 1.0 - 3.6 x10(3)/[facility] [place] [facility] Monocyte % 6.4 % [facility] Monocyte Abs 0.5 0.2 - 1.0 x10(3)/[facility] [place] [facility] Eos % 4.0 % [facility] Eosinophils Abs 0.3 0.0 - 0.5 x10(3)/[facility] [place] [facility] Basophil % 0.1 % [facility] Baso Absolute 0.0 0.0 - 0.2 x10(3)/[facility] [place] [facility] Immature Gran % 0.40 % [facility] Comment: Immature granulocytes(IG's)percentage and absolute count will include metamyelocytes, myelocytes, and promyelocytes. Blood smears from CBCs yielding IG's will be scanned manually for concordance. If this scan disagrees with the automated IG or if promyelocytes are noted, a manual differential will be performed. Immature Gran Absolute 0.03 0.00 - 0.05 x10(3)/[facility] [place] [facility] Blood specimen (specimen) 12/26/2015 12:28 PM EDT 12/26/2015 12:44 PM EDT Narrative Resulting Agency Comment Spec In Lab Nayla Dillon MD HEMATOLOGY ORDERABLE S [facility] [place] [address] * Hemogram (12/26/2015 12:28 PM EDT) White Blood Cell 7.7 4.0 - 10.0 x10(3)/[facility] [place] [facility] Red Blood Cell 4.29 3.93 - 5.22 x10(6)/[facility] [place] [facility] Hemoglobin 13.0 11.2 - 15.7 gm/dL [facility] Hematocrit 38.5 34.0 - 45.0 % [facility] Mean Cell Volume 89.7 79.0 - 94.0 fL [facility] Mean Cell Hemoglobin 30.3 26.6 - 32.2 pg [facility] Mean Cell Hemoglobin Concentration 33.8 32.0 - 36.5 gm/dL [facility] Platelet 276 145 - 370 x10(3)/mcL [facility] RDW Standard Deviation 44.7 35.0 - 46.0 fL [facility] RDW coefficient of variation 13.7 10.9 - 14.4 % [facility] Mean Platelet Volume 9.3 9.0 - 12.0 fL [facility] Blood specimen (specimen) 12/26/2015 12:28 PM EDT 12/26/2015 12:44 PM EDT Narrative Resulting Agency Comment Spec In Lab Nayla Dillon MD HEMATOLOGY ORDERABLE S Performing Organization Address City/State/[facility] Co de Phone Number [facility] [place] [address] * (ABNORMAL) Hepatic Function Panel (12/26/2015 12:28 PM EDT) Protein, Total 7.2 6.1 - 8.0 gm/dL [facility] Albumin 4.2 3.2 - 5.2 gm/dL [facility] Aspartate Aminotransferase 20 5 - 30 unit/L [facility] Alanine Aminotransferase 22 0 - 25 unit/L [facility] Alkaline Phosphatase 141(H) 55 - 140 unit/L [facility] Bilirubin, Total <0.2(L) 0.2 - 1.3 mg/dL [facility] Bilirubin, Direct 0.1 0.0 - 0.3 mg/dL [facility] Blood specimen (specimen) 12/26/2015 12:28 PM EDT 12/26/2015 12:44 PM EDT Narrative Resulting Agency Comment Spec In Lab Nayla Dillon MD CHEMISTRY ORDERABLES Performing Organization Address City/[facility] Co de Phone Number [facility] [place] [address] * Carbamazepine level, total (12/26/2015 12:28 PM EDT) Carbamazepine 8.5 8.0 - 12.0 mg/L [facility] Comment: Therapeutic range: ??8-12 mg/L Toxic: ??> 12 mg/L Blood specimen (specimen) 12/26/2015 12:28 PM EDT 12/26/2015 12:44 PM EDT Narrative Resulting Agency Comment Spec In Lab Nayla Dillon MD CHEMISTRY ORDERABLES Performing Organization Address [facility] Co de Phone Number [facility] [place] [address] documented in this encounter Visit Diagnoses Diagnosis Dizziness Dizziness and giddiness Seizures Other convulsions documented in this encounter Care Teams Die Trouble Shooter Relationship Specialty Start Date End Date Jerrica Healy PA [address] [place] [phone] PCP - General Family Medicine 12/26/15 documented as of this encounter
--- OUTSIDE RECORDS SUMMARY | 2024-02-17 13:33 | XMS_ITS | Encounter Summary ---
Author Organization [facility] [place] [address] Care Team Providers Care Adjunct History Instructor Name Role Phone Unavailable Primary Care Provider Unavailabl e Reason for Visit * Reason Onset Date Comments Seizures 01/14/2011 Seizure this mor craig Encounter Details Date Type Department Care Team (Late st Contact Info) Description 01/14/2011 Telephone [place] [phone] Magalie Magana RN Seizures (Seizure this morning) Social History Tobacco Use Types Packs/Day Years [...] Telephone Encounter - Magalie Magana RN - 01/14/2011 1:03 PM EDT 11:30am: Mom called to report that Federica had a seizure out of sleep this morning at 5:30am. It was atonic-clonic (grand mal) seizure. It was not necessary to give Diastat, as it stopped within a few minutes. Afterward, Federica was confused and irritable. Federica's last seizure occurred on 12/25/10. She is receiving Keppra 1000mg, twice daily, which is a low-medium dose for her age and weight. Her EEG in December 2010 was normal other than some slowing with hyperventilation. 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 She is scheduled to see Dr. Ni, a local ENT specialist next week who performed her tonsillectomy on the past. I will make sure that notes and MRI are sent to Dr. Ni's office. Mom and I discussed the idea that the cyst may be an irritant, but is not the cause of her seizures. Her brain is normal on the MRI. PLAN: The Keppra will be increased to 1000mg morning, 1500mg today, and then to 1500mg, twice daily on 01/16/11. In addition, she will have available Ativan 0.5m-2 tablets, up to 2 x day for short breakthrough seizures. Mom will give her Ativan 1mg (2 tablets) tonight, just once. documented in this encounter Plan of Treatment Not on file documented as of this encounter Visit Diagnoses Diagnosis Seizure- Primary Other convulsions documented in this encounter
--- OUTSIDE RECORDS SUMMARY | 2024-02-17 13:33 | XMS_ITS | Encounter Summary ---
Author Organization [facility] Address [facility] [place] [address] Care Team Providers Care Restaurant Line Server Name Role Phone Jerrica Healy Primary Care Provider [phone] Reason for Visit * Reason Onset Date Comments Medication Refill 11/25/2016 Encounter Details Date Type Department Care Team (Late st Contact Info) Description 11/25/2016 [place] [id number] Ferdinand Mills MD [facility] [place] [address] Seizure disorder (Primary Dx) Social History Tobacco [...] Telephone Encounter - Constantino Escobedo RN - 11/25/2016 12:01 PM EDT Please ask her to to increase her dose of Lamictal to 100 mg 3 times a day, and take an extra dose for a total of 400 mg a day if she has any more nausea and vomiting such that she throws up her pills. She is supposed come and see me in any case in a few days. I hope she is planning to keep that appointment. Would you see if you can get her an EEG on that day before she sees me Thanks Ferdinand Called and relayed message to Federica she voiced understanding and agreement. Script prepped to cover the increase. EEG ordered. Constantino * Telephone Encounter - Constantino Escobedo RN - 11/25/2016 11:11 AM EDT Federica Kim called she said she has been sick for the last couple of days GI complaint, nausea and vomiting, and an increase in her absence seizures. She went to the ED yesterday and was treated for dehydration and released. The nausea and vomiting is continuing today and her absence seizures are continuing to increase (every 5-10 minutes). Please advise. Current Outpatient Prescriptions on File Prior to Visit Medication Sig Dispense Refill ??? lamoTRIgine (LAMICTAL) 100 mg Tablet Take 1 tablet by mouth 2 times daily. 60 tablet 5 ??? vitamin with tchduxrc-Cm-[id number]-FA Tablet Take by mouth daily. ??? folic acid (FOLVITE) 1 mg Tablet Take 1 pill in AM and 2 pills in PM. 30 tablet 12 No current facility-administered medications on file prior to visit. Constantino moon RN Last appt 10/06 Next appt 11/29 documented in this encounter Plan of Treatment Not on file documented as of this encounter Results * EEG INNC. RECORDING AWAKE AND ASLEEP, W. HYPERVENT/PHOTIC STIMU PRFM (12/01/2016 2:51 PM EDT) Narrative Hector Esparza MD - 12/01/2016 2:51 PM EDT Hector Esparza MD ? 12/01/2016 ??2:51 PM [facility] Department of Neurology Out Patient Routine EEG [...] 90 tablet 5 ? ? vitamin with [id number]-Vgfk-FA Tablet Take ??by mouth daily. ? folic acid (FOLVITE) 1 mg Tablet Take 1 pill in AM and 2 pills in PM. 30 tablet 12 No current facility-administered medications for this encounter. ?? METHODS: A 21 channel digitized electroencephalogram was performed in the [facility] Clinical Neurophysiology Laboratory. The 10/20 international system of electrode placement was used and bipolar and referential electrode montages were recorded. ??In addition to EEG the patient was monitored for EKG and lateral/vertical eye movements. Video was recorded during the session. The duration of the recording was 30 minutes. GREENS KEEPER'S REPORT: Performed by: AT Patient was sleep [...] - I reviewed the EEG with the SUPERVISOR PAPER MACHINE/Epilepsy fellow, and I agree with the interpretation as documented. Hector Esparza MD, PhD Supervisor Electric of Neurology [facility] Epilepsy [place] Clinical Neurophysiology Laboratory Ferdinand Mills MD NEUROLOGY ORDERABLES documented in this encounter Visit Diagnoses Diagnosis Seizure disorder- Primary Unspecified epilepsy without mention of intractable epilepsy Seizure disorder Unspecified epilepsy without mention of intractable epilepsy documented in this encounter Care Teams Restaurant Line Server Relationship Specialty Start Date End Date Jerrica Healy PA [address] [place] [id number] PCP - General Family Medicine 12/26/15 documented as of this encounter
--- OUTSIDE RECORDS SUMMARY | 2024-02-17 13:33 | XMS_ITS | Encounter Summary ---
[place] [address] Care Team Providers Care Color Strainer Name Role Phone Jerrica Healy Primary Care Provider [phone] Reason for Visit * Reason Onset Date Comments Prior Authorization 02/02/2016 Carbatrol Encounter Details Date Type Department Care Team (Late st Contact Info) Description 02/02/2016 Telephone [place] [phone] Magalie Magana, teacher instrumental (Carbatrol) Social History Tobacco Use Types Packs/Day Years [...] Telephone Encounter - Magalie Magana RN - 02/02/2016 1:11 PM EDT ----- Message from Cecilia Napier sent at 02/02/2016 12:57 PM EDT ----- Contact: Patient The Carbatrol needs a prior authorization. The pharmacy said they sent a notification to us. Pharmacy is [facility] [place], [place]. She is going to be out after tomorrow morning's dose (and has been skipping some doses to try to stretch her supply out further). She does have refills left on the Rx that Dr. Dillon sent in on 12/25 but they won't fill it without a PA. She is scheduled to see Dr. Mills for a new patient visit next week but this is still under Dr. Dillon ([facility] Neuro) till then. The Prescription is for Brand Name Carbatrol. It appears that Federica changed to Brand Name in early 2014 when her levels were unsteady and seizuresoccurred. Urgent PA sent to [facility] [place] [facility]. Asked Pharmacy to request override supply. I phoned Federica to let her know of the process. +++ 02/03/16: We received notice that the Carbatrol is approved for 12 months. I phoned pharmacy. The claim went through. They will call Federica. documented in this encounter Plan of Treatment Not on file documented as of this encounter Visit Diagnoses Diagnosis Seizures Other convulsions documented in this encounter Care Teams Color Strainer Relationship Specialty Start Date End Date Jerrica Healy PA [address] [place] [id number] PCP - General Family Medicine 12/26/15 documented as of this encounter
--- OUTSIDE RECORDS SUMMARY | 2024-02-17 13:33 | XMS_ITS | Encounter Summary ---
Author Organization [facility] Address [facility] [place] [address] Care Team Providers Care Bridge Instructor Name Role Phone Unavailable Primary Care Provider Unavailabl e Encounter Details Date Type Department Care Team (Late st Contact Info) Description 03/06/2012 9:45 AM EDT Office Visit Pediatric Neurology at [facility] [place] [address] Nayla Dillon MD [facility] [place] [address] Seizure disorder (Primary Dx); Seizures; Dizziness Discharge Disposition: Home Social History Tobacco Use [...] Sign Reading Time Taken Comments Blood Pressure 122/82 03/06/2012 10:23 AM EDT Pulse 80 03/06/2012 10:23 AM EDT Temperature - - Respiratory Rate - - Oxygen Saturation - - Inhaled Oxygen Concentration - - Weight 99.6 kg (219 lb 9.3 oz) 03/06/20 12 10:23 AM EDT Height 165.5 cm (5' 5.16) 03/06/2012 1 0:23 AM EDT Body Mass Index 36.36 03/06/2012 10:23 AM EDT Body Mass Index Percentile 99.18% 03/06 10:23 AM EDT Growth Chart: CDC (Girls, 2- 20 Years) documented in this encounter Patient Instructions * Patient Instructions* Magalie Magana RN - 03/06/2012 10:32 AM EDT Labs to be drawn today. Call for results this week. Follow-up in 6 months. Seizure Action Plan. documented in this encounter Progress Notes * Nayla Dillon MD - 03/06/2012 10:26 AM EDT Federica Acosta was seen for followup of seizure disorder on 03/06/2012. INTERVAL HISTORY: Since I saw Federica six months ago indicate she is 14-9/12 years of age. Blood work at the last visit showed a Carbatrol level of 11.9. LFTs and CBC with differential were normal. I am told there has been no interval seizures. There have been no episodes of dizziness. 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 She is interested in getting her personal driver's permit this fall. General health has been good with the exception of possible recent allergy to cat dander. CURRENT NEUROLOGIC MEDICATIONS: Carbatrol 200 mg tablets, two b.i.d. She also takes Claritin. ALLERGIES: SHE HAS NO ALLERGIES TO MEDICATIONS. PHYSICAL EXAMINATION: Physical exam shows a well-appearing, cooperative adolescent. Cardiac exam is benign. Gait is normal. Romberg is negative. Tandem is normal. Mental status and language are age-appropriate without errors. Eye movements are full and conjugate. Face is symmetric. There is no pronator drift. There is no appendicular ataxia. Deep tendon reflexes are 1 to 2+ and symmetric. ASSESSMENT: 1. Symmetric nonfocal elemental neurologic exam. 2. Seizure disorder, manifest as paroxysmal dizziness, has been nicely suppressed on Carbatrol. 3. Due for Carbatrol related blood work. RECOMMENDATIONS: 1. Continue current Carbatrol regimen. A new prescription was written. 2. Blood today for CBC with differential and LFTs. 3. Follow up in the office in six months' time or sooner if indicated. documented in this encounter Plan of Treatment Not on file documented as of this encounter Procedures Procedure Name Priority Date/Time Associated Diagnosis Comments COMPREHENSIVE METABOLIC PANEL Routine 03/06/2012 10:56 AM EDT Seizure disorder documented in this encounter Results * (ABNORMAL) Comprehensive metabolic panel (non-fasting) (03/06/2012 10:56 AM EDT) Glucose 106 60 - 199 mg/dL CERNER MILLENNIUM Comment:Diabetes: >=200 mg/d L plus symptoms Blood Urea Nitrogen 12 10 - 20 mg/dL CERNER MILLENNIUM Creatinine 0.56 0.20 - 0.70 mg/dL CERNER MILLENNIUM Comment: Please note that the pediatric reference intervals supplied above were not validated at [facility]. Results from pediatric patients should be interpreted in conjunction to the patient's age, height and muscle mass. Sodium 139 135 - 145 mmol/L CERNER MILLENNIUM Potassium 4.3 3.5 - 5.0 mmol/L CERNER MILLENNIUM Comment: Please note: ??Patients with WBC >100,000 may have falsely elevated Potassium levels. ??For accurate Potassium quantification in these patients send serum separator tube (gold top) for subsequent determinations. ??Contact the Clinical Chemistry Laboratory if there are any questions. Chloride 103 98 - 107 mmol/L CERNER MILLENNIUM Carbon Dioxide 27 22 - 31 mmol/L CERNER MILLENNIUM Anion Gap 9 5 - 15 mmol/L CERNER MILLENNIUM Calcium 9.5 8.5 - 10.5 mg/dL CERNER MILLENNIUM Protein, Total 7.2 5.7 - 8.0 gm/dL CERNER MILLENNIUM Albumin 4.3 3.3 - 4.9 gm/dL CERNER MILLENNIUM Aspartate Aminotransferase 32(H) 5 - 30 unit/L CERNER MILLENNIUM Alanine Aminotransferase 30(H) 0 - 25 unit/L CERNER MILLENNIUM Alkaline Phosphatase 196 80 - 250 unit/L CERNER MILLENNIUM Bilirubin, Total 0.2 <=1.0 mg/dL CERNER MILLENNIUM Bilirubin, Direct 0.1 0.0 - 0.3 mg/dL CERNER MILLENNIUM Est Glomerular Filtration Rate See note >=60 CERNER MILLENNIUM Comment: Calculated GFR not appropriate for patients less than 18 years of age. The National Kidney Disease Education Program (NKDEP) has recommended all laboratories report estimated GFR (eGFR) along with plasma creatinine measurements to assist you with recognition of early kidney disease. Caveats: ??Plasma creatinine should be at steady-state (unchanged within the past week). For patients multiply eGFR by 1.2. The MDRD equation was developed using patients between the ages of 18 and 70 years. ?? The MDRD equation has not been validated for patients < 18 years of age and should not be used to assess renal function in the pediatric population. ??The MDRD eGFR equation will also overestimate the true GFR of patients above the age of 70. ??This overestimation is variable but increases with age. At present, NKDEP does NOT recommend using the MDRD equation for drug dosing purposes and pharmacists should continue to use their current dosing methods. In addition, numerical eGFR values greater than 60 ml/min/1.73 square meters should be treated as > 60, and not an exact number due to greater inaccuracies at these higher values. Per NKDEP, they classify normal renal function as any GFR >60ml/min/1.73 square meters; chronic kidney disease when GFR <60, and renal failure when GFR <15. ??This calculation may not be valid for patients with atypical muscle mass (very lean or obese), acute renal failure, and in patients with diabetic kidney disease. References: http://nkdep.nih.gov/resources/NKDEP_Suggestn4Labs_0606_508.pdf http://www.kidney.org/professionals/kls/pdf/faq_gfr.pdf Thang K, Jen NA, Jada AK, Kiko TS, Meena AD, Alessia AVNI. Relative performance of the MDRD and CKD-EPI equations for estimating glomerular filtration rate among patients with varied clinical presentations. Clin J Am Soc Nephrol;6:1963-72. Blood specimen (specimen) 03/06/2012 10:56 AM EDT 03/06/2012 11:08 AM EDT Narrative Resulting Agency Comment Spec In Lab Nayla Dillon MD CHEMISTRY ORDERABLES Performing Organization Address City/State/ZIP [place] Phone Number [facility] documented in this encounter Visit Diagnoses Diagnosis Seizure disorder- Primary Unspecified epilepsy without mention of intractable epilepsy Seizures Other convulsions Dizziness Dizziness and giddiness documented in this encounter
--- OUTSIDE RECORDS SUMMARY | 2024-02-17 13:33 | XMS_ITS | Encounter Summary ---
Author Organization Formerly [facility] Address [facility] [place] [address] Care Team Providers Care New Media Strategist Name Role Phone Jerrica Healy Primary Care Provider [phone] Reason for Visit * Reason Onset Date Comments Prior Authorization 10/06/2016 PA FOR CARBA TROL ER #120 CANCELLED Encounter Details Date Type Department Care Team (Late st Contact Info) Description 10/06/2016 [place] [address] Ferdinand Mills MD [facility] [place] [address] Prior Authorization (PA FOR CARBATROL ER #120 CANCELLED) Social History Tobacco Use Types Packs/Day Years [...] encounter Miscellaneous Notes * Telephone Encounter - Jessica Mayer - 10/08/2016 11:11 AM EDT PA FOR CARBATROL ER #120 CANCELLED PT IS TAPERING OFF CARBATROL 200 MG. * Telephone Encounter - Jessica Mayer - 10/06/2016 3:05 PM EDT RENEWAL PA FOR CARBATROL ER #120 FAXED TO [facility] documented in this encounter Plan of Treatment Not on file documented as of this encounter Visit Diagnoses Not on filedocumented in this encounter Care Teams New Media Strategist Relationship Specialty Start Date End Date Jerrica Healy PA [address] [place] [address] PCP - General Family Medicine 12/26/15 documented as of this encounter
--- OUTSIDE RECORDS SUMMARY | 2024-02-17 13:33 | XMS_ITS | Encounter Summary ---
Author Organization [facility] Address [facility] [place] [address] Care Team Providers Care Sprue Cutting Press Operator Name Role Phone Unavailable Primary Care Provider Unavailabl e Reason for Visit * Reason Comments Follow-up Encounter Details Date Type Department Care Team (Late st Contact Info) Description 07/26/2014 1:45 PM EST Office Visit [place] [phone] Nayla Dillon MD [facility] [place] [address] Convulsions, unspecified convulsion type; Seizure disorder Discharge Disposition: Home Social History [...] Sign Reading Time Taken Comments Blood Pressure 126/64 07/26/2014 1:49 PM EST Pulse 94 07/26/2014 1:49 PM EST Temperature - - Respiratory Rate - - Oxygen Saturation - - Inhaled Oxygen Concentration - - Weight 101.7 kg (224 lb 3.2 oz) 07/26/2014 1:49 PM EST Height 164.9 cm (5' 4.92) 07/26/2014 1:49 PM ES T Head Circumference 55.9 cm 07/26/2014 1:49 PM EST Body Mass Index 37.4 07/26/2014 1:49 PM EST Body Mass Index Percentile 98.68% 07/26/2014 1:4 9 PM EST Growth Chart: [facility] (Girls, 2- 20 Years) documented in this encounter Patient Instructions * Patient Instructions* Nayla Dillon MD - 07/26/2014 2:11 PM EST Blood today for tegretol level, blood count and liver function. Continue carbatrol 200mg tabs, 2 tabs twice a day. Call if you decide to wean medication. Follow up in 6 months time. documented in this encounter Progress Notes * Nayla Dillon MD - 07/26/2014 2:18 PM EST Federica Acosta was seen for followup of partial complex seizure disorder on 07/26/2014. INTERVAL HISTORY: Since I saw Federica 6 months ago, indicates she is 17-1/12th years of age. She is accompanied by her father. Blood work at the last visit showed a Carbatrol level of 9.1. LFTs and CBC were unremarkable. There have no interval seizures. 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 Current neurologic medication is Carbatrol 200 mg tabs, two tabs b.i.d. SHE HAS NO ALLERGIES TO MEDICATIONS. Updated social history indicates she is in 11th grade and doing well. She is looking for a part-time job. Updated review of systems is negative in detail. PHYSICAL EXAMINATION: Physical exam shows a well-appearing, cooperative, overweight adolescent. No seizure activity is noted. Cardiac exam is benign. Neck is supple. Gait is normal. Romberg is negative. Tandem is normal. Language is fluent. Eye movements are full and conjugate. There is no pronator drift. There is no appendicular ataxia. Deep tendon reflexes are not increased. ASSESSMENT: 1. Symmetric nonfocal neurologic exam. 2. History several years ago of paroxysmal events with altered mental status, abdominal distress, dizziness and minor motor accompaniment. MRI and EEG have been normal. She has been seizure-free on Carbatrol. 3. Due for Carbatrol and blood work. RECOMMENDATIONS: 1. We talked at length about the opportunity to wean the medication at this time. This would require an EEG and then several weeks of weaning the Carbatrol. Federica is uncomfortable with this at the current time. 2. Blood today for Carbatrol level, CBC and LFTs. 3. Continue current Carbatrol regimen. A new script was written. 4. If Federica changes her mind, family will call me and we could stop the process of weaning the antiseizure medicine. 5. Follow up in the office in six months' time. 07/29/14 ADDENDUM Tegretol level 8.9. CBC and LFTs unremarkable. documented in this encounter Plan of Treatment Not on file documented as of this encounter Procedures Procedure Name Priority Date/Time Associated Diagnosis Comments HEMOGRAM Routine 07/26/2014 2:33 PM EST Convulsions, unspecified convulsion type DIFFERENTIAL, AUTOMATED Routine 07/26/2014 2:33 PM EST Convulsions, unspecified convulsion type CBC (WITH DIFF) Routine 07/26/2014 2:33 PM EST Convulsions, unspecified convulsion type CARBAMAZEPINE LEVEL, TOTAL Routine 07/26/2014 2:33 PM EST Convulsions, unspecified convulsion type HEPATIC FUNCTION PANEL Routine 5 2:33 PM EST Convulsions, unspecified convulsion type documented in this encounter Results * Differential, Automated (07/26/2014 2:33 PM EST) Neutrophil % 58.8 % CERNER MILLENNIUM Neutrophil Absolute 5.68 1.50 - 8.00 x10(3)/mcL CERNER MILLENNIUM Lymph % 29.3 % CERNER MILLENNIUM Lymphocytes Abs 2.8 1.2 - 5.2 x10(3)/mcL CERNER MILLENNIUM Monocyte % 7.1 % CERNER MILLENNIUM Monocyte Abs 0.7 0.2 - 1.0 x10(3)/mcL CERNER MILLENNIUM Eos % 4.4 % CERNER MILLENNIUM Eosinophils Abs 0.4 0.0 - 0.5 x10(3)/mcL CERNER MILLENNIUM Basophil % 0.2 % CERNER MILLENNIUM Baso Absolute 0.0 0.0 - 0.2 x10(3)/mcL CERNER MILLENNIUM Immature Gran % 0.20 % CERN ER MILLENNIUM Comment: Immature granulocytes(IG's)percentage and absolute count will include metamyelocytes, myelocytes, and promyelocytes. Blood smears from CBCs yielding IG's will be scanned manually for concordance. If this scan disagrees with the automated IG or if promyelocytes are noted, a manual differential will be performed. Immature Gran Absolute 0.02 0.00 - 0.05 x10(3)/mcL CERNER MILLENNIUM Blood specimen (specimen) 07/26/2014 2:33 PM EST 07/26/2014 2:36 PM EST Narrative Resulting Agency Comment Spec In Lab Nayla Dillon MD HEMATOLOGY ORDERABLE S CERNER MILLENNIUM * (ABNORMAL) Hemogram (07/26/2014 2:33 PM EST) White Blood Cell 9.7 4.5 - 13.0 x10(3)/mc L CERNER MILLENNIUM Red Blood Cell 4.55 4.10 - 5.10 x10(6)/mc L CERNER MILLENNIUM Hemoglobin 13.2 12.0 - 16.0 gm/dL CERNER MILLENNIUM Hematocrit 40.0 36.0 - 46.0 % CERNER MILLENNIUM Mean Cell Volume 87.9 76.0 - 98.0 fL CERNER MILLENNIUM Mean Cell Hemoglobin 29.0 25.0 - 35.0 pg CERNER MILLENNIUM Mean Cell Hemoglobin Concentration 33.0 32.0 - 36.5 gm/dL CERNER MILLENNIUM Platelet 286 145 - 370 x10(3)/mc L CERNER MILLENNIUM RDW Standard Deviation 41.9 35.0 - 46.0 fL CERNER MILLENNIUM RDW coefficient of variation 13.0 10.9 - 14.4 % CERNER MILLENNIUM Mean Platelet Volume 8.7(L) 9.0 - 12.0 fL CERNER MILLENNIUM Blood specimen (specimen) 07/26/2014 2:33 PM EST 07/26/2014 2:36 PM EST Narrative Resulting Agency Comment Spec In Lab Nayla Dillon MD HEMATOLOGY ORDERABLE S Performing Organization Address [facility] Co de Phone Number CERNER MILLENNIUM * (ABNORMAL) Hepatic Function Panel (07/26/2014 2:33 PM EST) Protein, Total 7.0 6.4 - 8.3 gm/dL CERNER MILLENNIUM Albumin 4.3 3.2 - 5.2 gm/dL CERNER MILLENNIUM Aspartate Aminotransferase 19 5 - 30 unit/L CERNER MILLENNIUM Alanine Aminotransferase 30(H) 0 - 25 unit/L CERNER MILLENNIUM Alkaline Phosphatase 143(H) 55 - 140 unit/L CERNER MILLENNIUM Bilirubin, Total <0.2 <=1.0 mg/dL CERNER MILLENNIUM Bilirubin, Direct 0.1 0.0 - 0.3 mg/dL CERNER MILLENNIUM Blood specimen (specimen) 07/26/2014 2:33 PM EST 07/26/2014 2:36 PM EST Narrative Resulting Agency Comment Spec In Lab Nayla Dillon MD CHEMISTRY ORDERABLES Performing Organization Address [facility] Phone Number CERNER MILLENNIUM * Carbamazepine level, total (07/26/2014 2:33 PM EST) Pathologist [facility] Carbamazepine 8.9 8.0 - 12.0 mg/L CERNER MILLENNIUM Comment: Therapeutic range: ??8-12 mg/L Toxic: ??> 12 mg/L Blood specimen (specimen) 07/26/2014 2:33 PM EST 07/26/2014 2:36 PM EST Narrative Resulting Agency Comment Spec In Lab Nayla Dillon MD CHEMISTRY ORDERABLES Performing Organization Address [facility] Co de Phone Number CERNER USAMAENNIUM documented in this encounter Visit Diagnoses Diagnosis Convulsions, unspecified convulsion type Seizure disorder Unspecified epilepsy without mention of intractable epilepsy documented in this encounter
--- OUTSIDE RECORDS SUMMARY | 2024-02-17 13:33 | XMS_ITS | Encounter Summary ---
Author Organization Formerly [facility] [place] [place] [address] Care Team Providers Care Hull And Deck Remover Name Role Phone Flavio Ordaz MD Primary Care Provider [phone] Encounter Details Date Type Department Care Team (Late st Contact Info) Description 08/25/2015 12:20 PM EST Laboratory Appointment Lab [address] [place] [phone] Seizures Social History Tobacco Use Types Packs/Day [...] Priority Date/Time Associated Diagnosis Comments HEMOGRAM Routine 08/25/2015 12:23 PM EST Seizures DIFFERENTIAL, AUTOMATED Routine 08/25/2015 12:23 PM EST Seizures CBC (WITH DIFF) Routine 08/25/2015 12:23 PM EST Seizures CARBAMAZEPINE LEVEL, TOTAL Routine 08/25/2015 12:23 PM EST Seizures HEPATIC FUNCTION PANEL Routine 6 12:23 PM EST Seizures documented in this encounter Results * Differential, Automated (08/25/2015 12:23 PM EST) Neutrophil % 58.4 % CERNER MILLENNIUM Neutrophil Absolute 6.05 1.50 - 6.30 x10(3)/mcL CERNER MILLENNIUM Lymph % 30.8 % CERNER MILLENNIUM Lymphocytes Abs 3.2 1.0 - 3.6 x10(3)/mcL CERNER MILLENNIUM Monocyte % 6.0 % CERNER MILLENNIUM Monocyte Abs 0.6 0.2 - 1.0 x10(3)/mcL CERNER MILLENNIUM Eos % 4.2 % CERNER MILLENNIUM Eosinophils Abs 0.4 0.0 - 0.5 x10(3)/mcL CERNER MILLENNIUM Basophil % 0.2 % CERNER MILLENNIUM Baso Absolute 0.0 0.0 - 0.2 x10(3)/mcL CERNER MILLENNIUM Immature Gran % 0.40 % CERN ER MILLENNIUM Comment: Immature granulocytes(IG's)percentage and absolute count will include metamyelocytes, myelocytes, and promyelocytes. Blood smears from CBCs yielding IG's will be scanned manually for concordance. If this scan disagrees with the automated IG or if promyelocytes are noted, a manual differential will be performed. Immature Gran Absolute 0.04 0.00 - 0.05 x10(3)/mcL CERNER MILLENNIUM Blood specimen (specimen) 08/25/2015 12:23 PM EST 08/25/2015 12:32 PM EST Narrative Resulting Agency Comment Spec In Lab Nayla Dillon MD HEMATOLOGY ORDERABLE S CERNER MILLENNIUM * (ABNORMAL) Hemogram (08/25/2015 12:23 PM EST) White Blood Cell 10.4(H) 4.0 - 10.0 x10(3)/mc L CERNER MILLENNIUM Red Blood Cell 4.33 3.93 - 5.22 x10(6)/mc L CERNER MILLENNIUM Hemoglobin 12.7 11.2 - 15.7 gm/dL CERNER MILLENNIUM Hematocrit 37.8 34.0 - 45.0 % CERNER MILLENNIUM Mean Cell Volume 87.3 79.0 - 94.0 fL CERNER MILLENNIUM Mean Cell Hemoglobin 29.3 26.6 - 32.2 pg CERNER MILLENNIUM Mean Cell Hemoglobin Concentration 33.6 32.0 - 36.5 gm/dL CERNER MILLENNIUM Platelet 282 145 - 370 x10(3)/mc L CERNER MILLENNIUM RDW Standard Deviation 42.6 35.0 - 46.0 fL CERNER MILLENNIUM RDW coefficient of variation 13.3 10.9 - 14.4 % CERNER MILLENNIUM Mean Platelet Volume 9.0 9.0 - 12.0 fL CERNER MILLENNIUM Blood specimen (specimen) 08/25/2015 12:23 PM EST 08/25/2015 12:32 PM EST Narrative Resulting Agency Comment Spec In Lab Nayla Dillon MD HEMATOLOGY ORDERABLE S [facility] M[facility]EN[facility] * Carbamazepine level, total (08/25/2015 12:23 PM EST) Carbamazepine 8.2 8.0 - 12.0 mg/L CERNER MILLENNIUM Comment: Therapeutic range: ??8-12 mg/L Toxic: ??> 12 mg/L Blood specimen (specimen) 08/25/2015 12:23 PM EST 08/25/2015 12:32 PM EST Narrative Resulting Agency Comment Spec In Lab Nayla Dillon MD CHEMISTRY ORDERABLES CERNER MILLENNIUM * (ABNORMAL) Hepatic Function Panel (08/25/2015 12:23 PM EST) Protein, Total 7.6 6.1 - 8.0 gm/dL CERNER MILLENNIUM Albumin 4.2 3.2 - 5.2 gm/dL CERNER MILLENNIUM Aspartate Aminotransferase 13 5 - 30 unit/L CERNER MILLENNIUM Alanine Aminotransferase 14 0 - 25 unit/L CERNER MILLENNIUM Alkaline Phosphatase 113 55 - 140 unit/L CERNER MILLENNIUM Bilirubin, Total <0.2(L) 0.2 - 1.3 mg/dL CERNER MILLENNIUM Bilirubin, Direct <0.1 0.0 - 0.3 mg/dL CERNER MILLENNIUM Blood specimen (specimen) 08/25/2015 12:23 PM EST 08/25/2015 12:32 PM EST Narrative Resulting Agency Comment Spec In Lab Nayla Dillon MD CHEMISTRY ORDERABLES SWEETIE MCKEON documented in this encounter Visit Diagnoses Diagnosis Seizures Other convulsions documented in this encounter Care Teams Hull And Deck Remover Relationship Specialty Start Date End Date Flavio Ordaz MD [address] [place] [address] PCP - General 11/12/14 12/25/15 documented as of this encounter
--- OUTSIDE RECORDS SUMMARY | 2024-02-17 13:33 | XMS_ITS | Encounter Summary ---
Author Organization [facility] [place] [address] Care Team Providers Care Semiautomatic Stitcher Operator Name Role Phone Flavio Ordaz MD Primary Care Provider [phone] Reason for Visit * Reason Comments Medication Refill Encounter Details Date Type Department Care Team (Late st Contact Info) Description 08/19/2015 Refill [place] [address] Sandhya Griffiths, RAILROAD WHEELS AND AXLE INSPECTOR [facility] [place] [address] Social History Tobacco Use Types Packs/Day Years [...] on filedocumented in this encounter Care Teams Semiautomatic Stitcher Operator Relationship Specialty Start Date End Date Flavio Ordaz MD [address] [place], [place] [address] PCP - General 11/12/14 12/25/15 documented as of this encounter
--- OUTSIDE RECORDS SUMMARY | 2024-02-17 13:33 | XMS_ITS | Encounter Summary ---
Author Organization [facility] [place] [address] Care Team Providers Care Community Living Specialist Name Role Phone Unavailable Primary Care Provider Unavailabl e Encounter Details Date Type Department Care Team (Late st Contact Info) Description 11/04/2014 Telephone [place] [address] Sandhya Griffiths APRN [facility] [address] [place] [address] Social History Tobacco Use Types Packs/Day Years [...] encounter Miscellaneous Notes * Telephone Encounter - Sandhya Griffiths APRN - 11/04/2014 9:00 AM EDT Spoke with mom to check in and share labs results, including elevated white count (16) and therapeutic Carbatrol level. Mom reports that Federica is actually feeling better as she had been complaining ofsore throat and congestion when I saw her in clinic last week. Further, Federica has been feeling better and not complaining of AM nausea or dizziness for the past few days. I encouraged mom to bring Federica to her PCP if she does continue to be symptomatic. We will await the updated EEG and plan to wean the Carbatrol if that is normal. Mom agrees with this plan. documented in this encounter Plan of Treatment Not on file documented as of this encounter Visit Diagnoses Not on filedocumented in this encounter
--- OUTSIDE RECORDS SUMMARY | 2024-02-17 13:33 | XMS_ITS | Encounter Summary ---
Author Organization [facility] Address [facility] [place] [address] Care Team Providers Care Business Development Intern Name Role Phone Jerrica Healy Primary Care Provider Reason for Visit * Reason Onset Date Comments Other 11/04/2016 Encounter Details Date Type Department Care Team (Late st Contact Info) Description 11/04/2016 Telephone [place] [phone] Ferdinand Mills MD [facility] [place] [address] Other Social History Tobacco Use Types Packs/Day [...] Telephone Encounter - Constantino Escobedo RN - 11/04/2016 10:54 AM EDT Called and spoke with Federica she had not increased her medications as suggested by Dr. Palmer on 10/21 if seizures continue. I instructed her to try Dr. Palmer's instructions and to call back if seizures continue. She voiced understanding and agreement. Constantino Rivera RN * Telephone Encounter - Constantino Escobedo RN - 11/04/2016 10:46 AM EDT Called and left message for Federica to return callConstantino Nowak * Telephone Encounter - Erica Padilla - 11/04/2016 10:33 AM EDT Caller: Federica Best time to reach caller: 9-11 am Before 2:30pm - Informed caller that nurse will call back by the end of the day Best number to reach caller:[phone] A Reason for call: patient called. She is still having morning seizures Should the medication be increased? documented in this encounter Plan of Treatment Not on file documented as of this encounter Visit Diagnoses Not on filedocumented in this encounter Care Teams Business Development Intern Relationship Specialty Start Date End Date Jerrica Healy PA [address] [place] [address] PCP - General Family Medicine 12/26/15 documented as of this encounter
--- OUTSIDE RECORDS SUMMARY | 2024-02-17 13:33 | XMS_ITS | Encounter Summary ---
Author Organization [facility] [place] [address] Care Team Providers Care Adventure Challenge Instructor Name Role Phone Flavio Ordaz MD Primary Care Provider [phone] Reason for Visit * Reason Comments Other Encounter Details Date Type Department Care Team (Late st Contact Info) Description 04/10/2015 Telephone Pediatric [place] [phone] Lilli Gonzalez, OBSTETRICIAN/GYNECOLOGIST NEUROLOGY Social History Tobacco Use Types Packs/Day [...] Telephone Encounter - Lilli Gonzalez RN - 04/10/2015 9:35 AM EDT I called and spoke with Kasey. She tells me that Federica actually has trandferred to a different school. * Telephone Encounter - Lilli Gonzalez RN - 04/10/2015 9:34 AM EDT ----- Message from Eunice Malik sent at 03/20/2015 8:56 AM EDT ----- Contact: KAESY MESSER RN FEDERICA IS COMPLAINING ABOUT MORE SEIZURES, AND MISSING SCHOOL, NURSE WOULD LIKE TO TALK ABOUT MEDS SHE IS FAXING OVER THE RELEASE THAT MOTHER SIGNED FOR HER TO TALK WITH DOCTOR OFFICE [phone] [id number] documented in this encounter Plan of Treatment Not on file documented as of this encounter Visit Diagnoses Not on filedocumented in this encounter Care Teams Adventure Challenge Instructor Relationship Specialty Start Date End Date Flavio Ordaz MD [address] [facility] [facility] [address] PCP - General 11/12/14 12/25/15 documented as of this encounter
--- OUTSIDE RECORDS SUMMARY | 2024-02-17 13:33 | XMS_ITS | Encounter Summary ---
Author Organization [facility] Address [facility] [place] [address] Care Team Providers Care Enterprise Services Manager Name Role Phone Unavailable Primary Care Provider Unavailabl e Reason for Visit * Reason Onset Date Comments Results 02/05/2011 labs done recent ly Encounter Details Date Type Department Care Team (Late st Contact Info) Description 02/05/2011 Telephone [place] [phone] Nayla Dillon MD [facility] [place] [address] Results (labs done recently) Social History Tobacco Use Types Packs/Day Years [...] Telephone Encounter - Magalie Magana RN - 02/08/2011 1:01 PM EDT 02/02/11 Keppra Level 39 On 1500mg, twice daily (level range 12-46) Complete Blood Count- Normal Comprehensive Metabolic Panel- Normal, includes glucose, electrolytes, liver and kidney functions TSH, T4 (thyroid screening)- Normal 02/08/11, 3:40pm: I phoned back to Mom, but was only able to leave a message with the above information on her identified voicemail. The Keppra level is quite adequate. Increasing the dosage is likely to cause side effects and is probably not necessary. It may be possible to capture one or more of Federica's dizzy spells on a 24-hour EEG either as an outpatient Ambulatory EEG or an Inpatient Video EEG if she is continuing to have these spells. * Telephone Encounter - Jessica James - 02/08/2011 12:45 PM EDT Please call mom with results of labs from 02/02. They were done at [facility] in [facility]. * Telephone Encounter - Cecilia Napier - 02/05/2011 1:23 PM EDT Mom wanted to know what the results of the labs were. Please call to let her know. documented in this encounter Plan of Treatment Not on file documented as of this encounter Visit Diagnoses Not on filedocumented in this encounter
--- OUTSIDE RECORDS SUMMARY | 2024-02-17 13:33 | XMS_ITS | Encounter Summary ---
Author Organization [facility] Address [facility] [place] [address] Care Team Providers Care Cardiology Technician Name Role Phone Unavailable Primary Care Provider Unavailabl e Reason for Visit * Reason Comments Follow-up here with dionna Dukes Encounter Details Date Type Department Care Team (Late st Contact Info) Description 01/30/2014 10:15 AM EDT Office [place] [address] Nayla Dillon MD [facility] [place] [address] Cerebral seizure; Dizziness; Headache; Seizures; Seizure disorder Discharge Disposition: Home Social [...] Sign Reading Time Taken Comments Blood Pressure 124/62 01/30/2014 10:17 AM EDT Pulse 90 01/30/2014 10:17 AM EDT Temperature - - Respiratory Rate 18 01/30/2014 10:1 7 AM EDT Oxygen Saturation - - Inhaled Oxygen Concentration - - Weight 97.2 kg (214 lb 3.2 oz) 01/31/20 14 10:17 AM EDT Height 164.4 cm (5' 4.72) 01/30/2014 1 0:17 AM EDT Head Circumference 56.6 cm 01/30/2014 10 :17 AM EDT Body Mass Index 35.95 01/30/2014 10:17 AM EDT Body Mass Index Percentile 98.36% 01/30 10:17 AM EDT Growth Chart: [facility] (Girls, 2- 20 Years) documented in this encounter Patient Instructions * Patient Instructions* Nayla Dillon MD - 01/30/2014 10:52 AM EDT Blood today for carbatrol level, liver function and blood count. Continue carbatrol 200mg tabs, 2 tabs twice a day. Follow up in 6 months time. 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 INTERVAL HISTORY: Since I saw Federica 10 months ago, indicates she is 18 and 8/12th years of age. She is accompanied by her father. Blood work at the last visit showed a Carbatrol of 8.9 with normal LFTs and CBC. I am told there have been no interval seizures and in fact no seizures for several years. I am reminded that her initial presentation included stereotypic events that started with some abdominal distress with then some partial alteration of mental status and minimal motor activity. She had a number of these before treatment was initiated. Her EEG and MRI have been normal. 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 CURRENT NEUROLOGIC MEDICATIONS: Carbatrol 200 mg tablets, two tablets b.i.d. ALLERGIES: SHE HAS NO ALLERGIES TO MEDICATION. SOCIAL HISTORY: Updated social history indicates she is camping with her father and then will return to her mother's home later this week. She will be in 11th grade in the fall. PHYSICAL EXAMINATION: Physical exam shows a well-appearing, cooperative, overweight adolescent. No seizure activity is noted. Cardiac exam is benign. Chest is clear. Gait is normal. Romberg's is negative. Tandem is normal. Mental status and language are age-appropriate without error. Pupils are equal, round, and reactive. Eye movements are full and conjugate. Face is symmetric. There is no pronator drift. There is no appendicular ataxia. Deep tendon reflexes are not increased. ASSESSMENT: 1. Symmetric nonfocal neurologic exam. 2. History several years ago of paroxysmal events with altered mental status, preceded by dizziness, abdominal distress, and minimal motor accompaniment. She has been seizure-free on Carbatrol. Due for routine blood work. RECOMMENDATIONS: 1. Blood today for Carbatrol level, CBC and LFTs. 2. Continue current Carbatrol regimen. A new script was ordered. 3. I have signed forms for experienced truck driver's ed. 4. Again, we talked about the possibility of a repeat EEG and weaning medication, but Federica and her father would prefer not to do this as she is anxious to get start driving. We will defer this discussion to another visit. 5. Follow up in six months' time or sooner if indicated. documented in this encounter Plan of Treatment Not on file documented as of this encounter Procedures Procedure Name Priority Date/Time Associated Diagnosis Comments HEMOGRAM Routine 01/30/2014 11:10 AM EDT Cerebral seizure DIFFERENTIAL, AUTOMATED Routine 01/30/2014 11:10 AM EDT Cerebral seizure CBC (WITH DIFF) Routine 01/30/2014 11:10 AM EDT Cerebral seizure CARBAMAZEPINE LEVEL, TOTAL Routine 01/30/2014 11:10 AM EDT Cerebral seizure HEPATIC FUNCTION PANEL Routine 4 11:10 AM EDT Cerebral seizure documented in this encounter Results * Differential, Automated (01/30/2014 11:10 AM EDT) Neutrophil % 52.8 37.0 - 77.0 % CERNER MILLENNIUM Neutrophil Absolute 4.05 1.50 - 8.00 x10(3)/mcL CERNER MILLENNIUM Lymph % 37.2 20.0 - 50.0 % CERNER MILLENNIUM Lymphocytes Abs 2.9 1.2 - 5.2 x10(3)/mcL CERNER MILLENNIUM Monocyte % 4.9 2.0 - 12.0 % CERNER MILLENNIUM Monocyte Abs 0.4 0.2 - 1.0 x10(3)/mcL CERNER MILLENNIUM Eos % 4.7 0.0 - 7.0 % CERNER MILLENNIUM Eosinophils Abs 0.4 0.0 - 0.5 x10(3)/mcL CERNER MILLENNIUM Basophil % 0.3 0.0 - 2.0 % CERNER MILLENNIUM Baso Absolute 0.0 0.0 - 0.2 x10(3)/mcL CERNER MILLENNIUM Immature Gran % 0.10 0.00 - 0.66 % CERNER MILLENNIUM Comment: Immature granulocytes(IG's)percentage and absolute count will include metamyelocytes, myelocytes, and promyelocytes. Blood smears from CBCs yielding IG's will be scanned manually for concordance. If this scan disagrees with the automated IG or if promyelocytes are noted, a manual differential will be performed. Immature Gran Absolute 0.01 0.00 - 0.05 x10(3)/mcL CERNER MILLENNIUM Blood specimen (specimen) 01/30/2014 11:10 AM EDT 01/30/2014 11:17 AM EDT Narrative Resulting Agency Comment Spec In Lab Nayla Dillon MD HEMATOLOGY ORDERABLE S CERALEAN FORRESTERENNIUM * (ABNORMAL) Hemogram (01/30/2014 11:10 AM EDT) White Blood Cell 7.7 4.5 - 13.0 x10(3)/mc L CERNER MILLENNIUM Red Blood Cell 4.51 4.10 - 5.10 x10(6)/mc L CERNER MILLENNIUM Hemoglobin 13.0 12.0 - 16.0 gm/dL CERNER MILLENNIUM Hematocrit 40.0 36.0 - 46.0 % CERNER MILLENNIUM Mean Cell Volume 88.7 76.0 - 98.0 fL CERNER MILLENNIUM Mean Cell Hemoglobin 28.8 25.0 - 35.0 pg CERNER MILLENNIUM Mean Cell Hemoglobin Concentration 32.5 32.0 - 36.5 gm/dL CERNER MILLENNIUM Platelet 241 145 - 370 x10(3)/mc L CERNER MILLENNIUM RDW Standard Deviation 42.7 35.0 - 46.0 fL CERNER MILLENNIUM RDW coefficient of variation 13.2 10.9 - 14.4 % CERNER MILLENNIUM Mean Platelet Volume 8.9(L) 9.0 - 12.0 fL CERNER MILLENNIUM Blood specimen (specimen) 01/30/2014 11:10 AM EDT 01/30/2014 11:17 AM EDT Narrative Resulting Agency Comment Spec In Lab Nayla Dillon MD HEMATOLOGY ORDERABLE S Performing Organization Address [facility] de Phone Number CERNER MILLENNIUM * (ABNORMAL) Hepatic Function Panel (01/30/2014 11:10 AM EDT) Protein, Total 7.3 6.4 - 8.3 gm/dL CERNER MILLENNIUM Albumin 4.4 3.2 - 5.2 gm/dL CERNER MILLENNIUM Aspartate Aminotransferase 20 5 - 30 unit/L CERNER MILLENNIUM Alanine Aminotransferase 22 0 - 25 unit/L CERNER MILLENNIUM Alkaline Phosphatase 147(H) 55 - 140 unit/L CERNER MILLENNIUM Bilirubin, Total 0.2 <=1.0 mg/dL CERNER MILLENNIUM Bilirubin, Direct 0.1 0.0 - 0.3 mg/dL CERNER MILLENNIUM Blood specimen (specimen) 01/30/2014 11:10 AM EDT 01/30/2014 11:17 AM EDT Narrative Resulting Agency Comment Spec In Lab Nayla Dillon MD CHEMISTRY ORDERABLES Performing Organization Address [facility] de Phone Number CERNER MILLENNIUM * Carbamazepine level, total (01/30/2014 11:10 AM EDT) Carbamazepine 9.1 8.0 - 12.0 mg/L CERNER MILLENNIUM Comment: Therapeutic range: ??8-12 mg/L Toxic: ??> 12 mg/L Blood specimen (specimen) 01/30/2014 11:10 AM EDT 01/30/2014 11:17 AM EDT Narrative Resulting Agency Comment Spec In Lab Nayla Dillon MD CHEMISTRY ORDERABLES [facility] documented in this encounter Visit Diagnoses Diagnosis Cerebral seizure Acute, but ill-defined, cerebrovascular disease Dizziness Dizziness and giddiness Headache Seizures Other convulsions Seizure disorder Unspecified epilepsy without mention of intractable epilepsy documented in this encounter
--- OUTSIDE RECORDS SUMMARY | 2024-02-17 13:33 | XMS_ITS | Encounter Summary ---
Author Organization [facility] Address [facility] [place] [address] Care Team Providers Care Aircraft Body Repairer Name Role Phone Jerrica Healy Primary Care Provider [phone] Reason for Visit * Reason Onset Date Comments Medication Refill 11/09/2016 Encounter Details Date Type Department Care Team (Late st Contact Info) Description 11/09/2016 [place] [phone] Delmar Palmer MD [facility] [place] [address] Seizure disorder (Primary Dx) Social History Tobacco [...] encounter Miscellaneous Notes * Addendum Note - Priscilla Tiwari RN - 11/10/2016 3:46 PM EDTAddended by: PRISCILLA TIWARI on: 11/10/2016 03:46 PM Modules accepted: Orders * Telephone Encounter - Priscilla Tiwari RN - 11/10/2016 12:44 PM EDT Please have her increase the dose of Lamictal to 100 mg twice a day. Write her a prescription for the 100 mg pills. Check a level after she has been on 100 mg twice a day for a week. We may not be able to suppress simple partial seizures, but so long as she is and we can prevent her from having convulsions we are doing well Thanks Ferdinand ? Previous Messages Called and spoke with Federica, relayed message she voiced understanding and agreement. Script prepped. * Telephone Encounter - Priscilla Tiwari RN - 11/09/2016 12:17 PM EDT Federica Wilhelm called she said she has been on the increased dose of Lamictal (75 mg bid) she said it has hadno effect on her seizures, she is still experiencing 2/3 simple partial seizure in the morning whenshe awakens. She is asking if she should increase the dose. Please advise. Priscilla Rivera RN documented in this encounter Plan of Treatment Not on file documented as of this encounter Visit Diagnoses Diagnosis Seizure disorder- Primary Unspecified epilepsy without mention of intractable epilepsy documented in this encounter Care Teams Aircraft Body Repairer Relationship Specialty Start Date End Date Jerrica Healy PA [address] [place] [address] PCP - General Family Medicine 12/26/15 documented as of this encounter
--- OUTSIDE RECORDS SUMMARY | 2024-02-17 13:33 | XMS_ITS | Encounter Summary ---
[place] [address] Care Team Providers Care Electrician Helper Automotive Name Role Phone Flavio Ordaz MD Primary Care Provider [phone] Reason for Visit * Reason Onset Date Comments Medication Refill 10/30/2015 Encounter Details Date Type Department Care Team (Late st Contact Info) Description 10/30/2015 Refill [place] [phone] Brittany Tabares, IMPORT EXPORT CLERK Seizures Social History Tobacco Use Types Packs/Day [...] convulsions documented in this encounter Care Teams Electrician Helper Automotive Relationship Specialty Start Date End Date Flavio Ordaz MD [address] [place] [address] [place] [address] PCP - General 11/12/14 12/25/15 documented as of this encounter
--- OUTSIDE RECORDS SUMMARY | 2024-02-17 13:33 | XMS_ITS | Encounter Summary ---
Author Organization [facility] Address [facility] [place] [address] Care Team Providers Care School Curriculum Developer Name Role Phone Unavailable Primary Care Provider Unavailabl e Reason for Visit * Reason Onset Date Comments Dizziness 02/01/2011 continues to hav e dizziness vs. seizures Encounter Details Date Type Department Care Team (Late st Contact Info) Description 02/01/2011 Telephone [place] [id number] Nayla Dillon MD [facility] [place] [address] Dizziness (continues to have dizziness vs. seizures) Social History Tobacco Use Types Packs/Day Years [...] Telephone Encounter - Magalie Magana RN - 02/01/2011 3:55 PM EDT Mom called to report that despite increases in Keppra, Federica continues to have almost daily dizzy spells. She galvin have reports from Federica that the spells are less pronounced and do not cause such an intense abdominal discomfort as prior to the start of Keppra. The spells occur at various times, but a spell almost always occurs around 9- 9:30am. Federica does not usually eat much breakfast. She did see her ENT specialist to review the MRI with the incidental sphenoid retention cyst. This was not thought to be a cause for her symptoms. They did not discuss therapy for vertigo. Mom would like to have labwork done to make sure that there is no other cause for the dizziness. Since Federica's Keppra dosage of 1500mg, twice daily is reasonable, we could check a level along with screening for thyroid issues, anemia, and glucose issues. She will have fasting labs this week at [facility]: Keppra level, CBC, Chem panel, TSH, T4. documented in this encounter Plan of Treatment Not on file documented as of this encounter Visit Diagnoses Diagnosis Seizure disorder- Primary Unspecified epilepsy without mention of intractable epilepsy Dizziness Dizziness and giddiness documented in this encounter
--- OUTSIDE RECORDS SUMMARY | 2024-02-17 13:33 | XMS_ITS | Encounter Summary ---
Author Organization [facility] Address [facility] [place] [address] Care Team Providers Care Welder Fitter Helper Name Role Phone Flavio Ordaz MD Primary Care Provider [phone] Reason for Visit * Reason Comments Follow-up Encounter Details Date Type Department Care Team ([facility] st Contact Info) Description 08/25/2015 11:30 AM EST Office Visit [place] [address] Nayla Dillon MD [facility] DR P[place]IATR[place] [address] Cerebral seizure; Seizures Social History Tobacco Use Types Packs/Day [...] Sign Reading Time Taken Comments Blood Pressure 120/73 08/25/2015 11:26 AM EST Pulse 102 08/25/2015 11:26 AM EST Temperature - - Respiratory Rate - - Oxygen Saturation - - Inhaled Oxygen Concentration - - Weight 110.3 kg (243 lb 3.2 oz) 016 11:26 AM EST Height 166.4 cm (5' 5.5) 08/25/2015 11 :26 AM EST Head Circumference 57.2 cm 08/25/2015 11 :26 AM EST Body Mass Index 39.86 08/25/2015 11:26 AM EST Body Mass Index Percentile 99.03% 08/25 11:26 AM EST Growth Chart: [facility] (Girls, 2- 20 Years) documented in this encounter Patient Instructions * Patient Instructions* Nayla Dillon MD - 08/25/2015 11:43 AM EST Continue carbatrol 200 mg tabs, 2 tabs twice a day; a new script was sent in. Midazolam education as per Magalie Magana RN EEG to be scheduled; call several days later to review results. Follow up in 5-6 months time. documented in this encounter Progress Notes * Nayla Dillon MD - 08/25/2015 11:46 AM EST Federica Acosta was seen for followup of seizure disorder on 08/25/2015. INTERVAL HISTORY: Since Federica was seen 10 months ago by Sandhya Griffiths indicates she is 18-2/12 years of age. At the last visit, there were no reported seizures since 2010 and she was reluctant to wean the Carbatrol. The level was 10.1 with a normal CBC and LFTs. She was beginning to note morning episodes of dizziness and nausea. She was encouraged to maintain good hydration. She continues to note these episodes and think they may represent seizures. She had multiple ones over the summer and then none for several months until earlier this week. Episodes generally occur in the morning and often as she arises or changes position. She will have a spinning feeling and a slight nauseous feeling. The episodes lasts a few seconds and resolves. There is no loss of consciousness or motor accompaniment. There is no incontinence. PAST MEDICAL HISTORY: Indicates she takes Carbatrol 200 mg tabs, two tabs b.i.d. She also takes control pills. ALLERGIES: SHE HAS NO ALLERGIES TO MEDS. 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 Updated review of systems is negative in detail with the exception of what is mentioned above. Physical exam shows a well-appearing, cooperative, overweight young lady. Cardiac exam is benign. Chest is clear. Neck is supple. Gait is normal. Romberg is negative. She can stand on her toes as well as her heels. Tandem is normal. Mental status and language are age appropriate without error. Pupils are equal, round, and reactive. Eye movements are full and conjugate. Face is symmetric with eye closure and smile. Tongue is midline. There is no pronator drift. There is no appendicular ataxia. Deep tendon reflexes are 1+ and symmetric. ASSESSMENT: 1. Symmetric nonfocal elemental neurologic exam. 2. History of what she reports a generalized tonic-clonic seizures in 2010 and then subsequent episodes of abdominal distress with dizziness of unclear etiology. 3. MRI and EEG in the past have been normal. 4. On Carbatrol, several years since last definite sz, not interested in weaning. 5. Interested in changing her rescue from Diastat to midazolam. RECOMMENDATION: 1. I have renewed the Carbatrol script as is. 2. Blood for Carbatrol level, LFTs, and CBC. 3. EEG to be scheduled. 4. We talked about these morning episodes that are postural in nature, may represent a presyncope and encouraged good hydration, and careful postural changes. 5. Follow up in the office in two to three months' time or sooner if indicated. 6. Midazolam education as per Magalie Magana RN. 08/26/15 ADDENDUM CBC and LFTs unremarkable. Carbatrol level 8.2. If definite sz occurs, will increase dose, otherwise no change. documented in this encounter Plan of Treatment Not on file documented as of this encounter Results * Carbamazepine level, total (08/25/2015 12:23 PM EST) Carbamazepine 8.2 8.0 - 12.0 mg/L [facility] Comment: Therapeutic range: ??8-12 mg/L Toxic: ??> 12 mg/L Blood specimen (specimen) 08/25/2015 12:23 PM EST 08/25/2015 12:32 PM EST Narrative Resulting Agency Comment Spec In Lab Nayla Dillon MD CHEMISTRY ORDERABLES [facility] * (ABNORMAL) Hepatic Function Panel (08/25/2015 12:23 [...] In Lab Nayla Dillon MD CHEMISTRY ORDERABLES [facility] documented in this encounter Visit Diagnoses Diagnosis Cerebral seizure Acute, but ill-defined, cerebrovascular disease Seizures Other convulsions documented in this encounter Care Teams Welder Fitter Helper Relationship Specialty Start Date End Date Flavio Ordaz MD [address] [place] [address] PCP - General 11/12/14 12/25/15 documented as of this encounter
--- OUTSIDE RECORDS SUMMARY | 2024-02-17 13:33 | XMS_ITS | Encounter Summary ---
Author Organization [facility] Address [facility] [place] [address] Care Team Providers Care House Furnishings Supervisor Name Role Phone Jerrica Healy Primary Care Provider [phone] Reason for Visit * Reason Onset Date Comments Other 10/21/2016 Encounter Details Date Type Department Care Team (Late st Contact Info) Description 10/21/2016 Telephone [place] [phone] Ferdinand Mills MD [facility] [place] [address] Other Social History Tobacco Use Types Packs/Day [...] Telephone Encounter - Constantino Escobedo RN - 10/22/2016 10:51 AM EDT ?? Constantino, If she has more, we can increase to 3 tabs BID otherwise she should continue. Kala * Telephone Encounter - Constantino Escobedo RN - 10/22/2016 9:[address] Palmer, This is a Dr. Mills patient, I spoke with Federica, since stopping her Carbatrol and switching to Lamotrigine she has been having 2-3 simple partial seizure in the am when she first awakens. (describesas dizzy and stomach is like riding a roller coaster) typical for her. She is titrating up on her Lamotrigine she increased to two tabs twice a day yesterday and has not experienced any seizures so far today. She said she is doing fine just wanted to give an update. Please advise. Constantino Rivera RN Last appt 10/06 Next appt not scheduled. * Telephone Encounter - Constantino Escobedo RN - 10/21/2016 3:01 PM EDT Called and left message for Federica to return call. Constantino * Telephone Encounter - Erica Padilla - 10/21/2016 11:54 AM EDT Caller: Federica Best time to reach caller: Mornings are better Before 2:30pm - Informed caller that nurse will call back by the end of the day Best number to reach caller: [phone] Reason for call: Patient called. She was seen in the ER last Tuesday at [facility] for seizures. Please call to discuss medication changes or if a sooner appointment is needed. documented in this encounter Plan of Treatment Not on file documented as of this encounter Visit Diagnoses Not on filedocumented in this encounter Care Teams House Furnishings Supervisor Relationship Specialty Start Date End Date Jerrica Healy PA [address] [place] [id number] PCP - General Family Medicine 12/26/15 documented as of this encounter
--- OUTSIDE RECORDS SUMMARY | 2024-02-17 13:33 | XMS_ITS | Encounter Summary ---
Author Organization [facility] [place] [address] Care Team Providers Care Superintendent Transportation Name Role Phone Unavailable Primary Care Provider Unavailabl e Reason for Visit * Reason Onset Date Comments Results 04/28/2011 Video EE/12 -23/05 Encounter Details Date Type Department Care Team (Late st Contact Info) Description 04/28/2011 Telephone [place] [phone] Nayla Dillon MD [facility] [place] [address] Results (Video EE/12-23/05) Social History Tobacco Use Types Packs/Day Years [...] Miscellaneous Notes * Telephone Encounter - Magalie Steiner RN - 05/11/2011 5:24 PM EDTAddended by: MAGALIE STEINER on: 05/11/2011 Modules accepted: Orders * Telephone Encounter - Magalie Steiner RN - 05/11/2011 5:15 PM EDT Federica has been taking Keppra 1500mg, twice daily with a level in January 2011 was 39 on this dose (range 3-63). She continues to have breakthrough seizures (tonic- clonic) and dizzy spells. Based on the 04/21-23/05 Video EEG which shows right centro-temporal seizure activity with all of Federica's dizzy spells during the recording, Dr. Dillon advises a change in medication to Carbatrol (carbamazepine). I spoke with Mom who agrees with this plan. We reviewed a schedule, which I will also mail today. Day 1: Start Carbatrol 200mg, twice daily Keppra- same dose: 1500mg, twice daily Day 5: Increase Carbatrol to 400mg, twice daily Day 7: If no seizures, decrease Keppra to 1000mg morning (2 tabs), 1500mg evening Day 10: Decrease Keppra to 1000mg, twice daily Day 14: Labs to be drawn locally (will mail Standing lab order)- Call our office for lab results the next day. Decrease Keppra to 500mg morning, 1000mg evening Day 18: Decrease Keppra to 500mg, twice daily Day 21: Stop Keppra * Telephone Encounter - Magalie Steiner RN - 05/11/2011 11:09 AM EDT 05/11/11: I tried again to reach Mom. She is at work and not available until 3pm. I spoke with Federica herself, who reports that her dizzy spells are still present. She continues to take Keppra 1500mg, twice daily. This is the only seizure medication that she has been on. Her Keppra level in January 2011 was 39 on this dose (range 3-63), which is quite adequate. I will discuss a possible medication change with Dr. Dillon and call back to Mom this afternoon. * Telephone Encounter - Magalie Steiner RN - 05/11/2011 10:56 AM EDT The Video EEG of 04/21-23/[address] Jemal Carbone, Pediatric Neurologist: Summary: This 24 hour, digitized, video EEG was abnormal because of subtle EEG correlate to the patient's reported dizzy spells which is stereotypical and is interpreted as possibly reflecting a (deep, non surface) seizure focus in this patient. There are no other abnormalities present. * Telephone Encounter - Jessica James - 04/28/2011 8:38 AM EDT Please call with results of the video-eeg from 04/21. 04/30/11 on that above report is still pending. I will call her when I get the results. documented in this encounter Plan of Treatment Not on file documented as of this encounter Visit Diagnoses Diagnosis Seizure disorder- Primary Unspecified epilepsy without mention of intractable epilepsy documented in this encounter
--- OUTSIDE RECORDS SUMMARY | 2024-02-17 13:33 | XMS_ITS | Encounter Summary ---
Author Organization [facility] Address [facility] [place] [address] Care Team Providers Care Communications Attendant Name Role Phone Jerrica Healy Primary Care Provider [phone] Encounter Details Date Type Department Care Team (Late st Contact Info) Description 10/06/2016 4:00 PM EDT Office [place] [address] Ferdinand Mills MD [facility] [place] [address] Partial symptomatic epilepsy with complex partial seizures, [...] Sign Reading Time Taken Comments Blood Pressure 121/65 10/06/2016 3:29 PM EDT Pulse 87 10/06/2016 3:29 PM EDT Temperature - - Respiratory Rate - - Oxygen Saturation - - Inhaled Oxygen Concentration - - Weight 118.3 kg (260 lb 12.8 oz) 10/06/2016 3:29 PM EDT Height 165.1 cm (5' 5) 10/06/2016 3:29 PM EDT r eported Body Mass Index 43.4 10/06/2016 3:29 PM EDT documented in this encounter Patient Instructions * Patient Instructions* Thadani, Ferdinand M, MD - 10/06/2016 4:00 PM EDT There has been a good deal of confusion regarding your medications At this point, as you are out of the Carbatrol, you should stop it. Please start lamotrigine 1 pill (25 mg) twice a day for 2 weeks, and then increase the dose to 2 pills twice a day. After you have been on 2 pills twice a day for 2 weeks please call us, and if everything is going well we will increase the dose to a bigger pills so that you would take 100 mg twice a day which willprobably be an adequate dose for the rest of her . I will talk to your manufacturing lead tomorrow If you have problems with medicine in terms of any side effects please call. If you develop a rash or other skin problems while taking this medication please stop it at once and call I would like to see you back in any case in about 6 weeks Ferdinand Mills [place] [address] Pager: [phone], #[phone] Email: [email or web address] documented in this encounter Progress Notes * Ferdinand Mills MD - 10/06/2016 4:00 PM EDT Neurology Clinic Note Chief complaint: [...] has had a routine EEG done in [facility] which I read and was normal. [...] twice a day and levels around 8. Interval History: Situation is now quite complex. She is now 10 weeks . I initially recommended that she stay on Tegretol. However she was not taking her Tegretol in adequate doses, only 100 mg twice a day, because she could not afford it. She did not let us know about this. She spoke with me a few weeks ago, saying that her PRODUCTION DRILLING MACHINE OPERATOR office did not want her to be on Tegretol, and because she was I recommended a crossover to Lamictal. She was supposed to achieve a dose of 50 mg twice a day, and wean off a subtherapeutic dose of Tegretol, but did not in fact do so. At present she has run out of Tegretol, but not started Lamictal. Fortunately she has had no seizures. She is feeling reasonably well except for morning sickness Past medical history: Patient Active Problem List [...] fianc?? are living in their own apartment. She is not using control. Review of systems: 1. Eating: Normal 2. Sleeping: Normal 3. Bowels: Normal 4. Bladder: Normal 5. All other systems were reviewed and were normal except as noted in history Medications: Current Outpatient Prescriptions Medication Sig Dispense Refill ??? vitamin with [id number] Tablet Take by mouth daily. ? folic acid (FOLVITE) 1 mg Tablet Take 1 pill in AM and 2 pills in PM. 30 tablet 12 ??? lamoTRIgine (LAMICTAL) 25 mg Tablet Take 1 pill twice a day for 2 weeks, and then take 2 pills twice a day. (Patient not taking: Reported on 10/06/2016) 120 tablet 11 No current facility-administered medications for this visit. Allergies: Review of patient's allergies indicates no known allergies. Physical Exam: BP 121/65 (BP Location (NBP): Left arm, Patient Position: Sitting, BP Cuff Sizes: Large Adult (32-43 cm)) Pulse 87 Ht 165.1 cm (5' 5) Comment: reported Wt (!) 118.3 kg (260 lb 12.8 oz) BMI 43.4 kg/m2 HEENT: Normal Heart: Normal S1, S2, no abnormal sounds Lungs: Clear Abdomen: Benign Extremities: Normal Neurological exam: Mental state: Normal Speech: Normal Cranial nerves: I: Not tested II: Normal vision for finger counting. Optic disks flat at initial visit III, IV, : EOMs full V: Facial [...] liver profile recently. Tegretol level was 8. EKG: EEG: Several EEGs have been normal awake and asleep, including some where the patient smaller spells were captured without associated EEG abnormality. X-Ray: CAT scans: MRI scans: Normal here in 2006 Impression and suggestions: The patient appears to be suffering from [...] presume the smaller spells were also epileptic. At present, given the confusion described under the heading of interval history, I think the best option is to salvage what we can medically and financially, and simply have her start taking [id number] mg twice a day, with instructions to go up in 2 weeks to 50 mg twice a day. She is out of Tegretol, and there seems no point in writing a prescription that she cannot in any case afford. I also offered to call in a month, and if all is well, we will go up on the dose of Lamictal to 100mg twice a day. I also have a phone call in to her PRODUCTION DRILLING MACHINE OPERATOR Dr. Ortiz Thank you for this consultation. I will see the patient back in 6 weeks or sooner if necessary Ferdinand Mills MD [place] [address] Pager: [phone], #[phone] Email: [email or web address] CC: Jerrica Ortiz documented in this encounter Plan of Treatment Not on file documented as of this encounter Visit Diagnoses Diagnosis Partial symptomatic epilepsy with complex partial seizures, intractable, without status epilepticus documented in this encounter Care Teams Communications Attendant Relationship Specialty Start Date End Date Jerrica Healy PA [address] [place] [id number] PCP - General Family Medicine 12/26/15 documented as of this encounter
--- OUTSIDE RECORDS SUMMARY | 2024-02-17 13:33 | XMS_ITS | Encounter Summary ---
Author Organization [facility] Address [facility] [place] [address] Care Team Providers Care Registered Physical Therapist Name Role Phone Unavailable Primary Care Provider Unavailabl e Reason for Visit * Reason Onset Date Comments Results 05/28/2011 Encounter Details Date Type Department Care Team (Late st Contact Info) Description 05/28/2011 Telephone [place] [phone] Nayla Dillon MD [facility] [place] [address] Results Social History Tobacco Use Types Packs/Day Years [...] Miscellaneous Notes * Telephone Encounter - Jessica James - 05/31/2011 4:36 PM EST * Telephone Encounter - Selina Myles RN - 05/31/2011 1:06 PM EST Pediatric Neurology, [place] Date: 05/31/2011 Time of Notification: 1:02 PM Results: From OSH on 05/27/11- CBC normal BMP normal Carbamazepine level 13.6 Assessment: Carbamazepine level slightly elevated. Blood work otherwise normal. Plan: I was unable to reach Federica's mother by phone but left a message on a private voicemail notifying her of these results. I left a message asking for a return call to discuss if Federica was having side effects and if she was doing well. In the meantime, I reviewed the results with Dr. Dillon. [phone]- Mom returned my call. She stated that since starting the Carbatrol, she has had no dizzy events. She is almost weaned completely off of the Keppra. Mom does not appreciate any side effects. Based on this information, I encouraged them to continue on this dose. Mom agreed and had no further questions. Selina Myles, TOURIST INFORMATION OFFICER Nurse Clinician Pediatric Neurology/Nephrology * Telephone Encounter - Jessica James - 05/28/2011 5:01 PM EST Please call with lab results from 05/27/11 done at [facility]. documented in this encounter Plan of Treatment Not on file documented as of this encounter Visit Diagnoses Not on filedocumented in this encounter
--- OUTSIDE RECORDS SUMMARY | 2024-02-17 13:33 | XMS_ITS | Encounter Summary ---
Author Organization [facility] Address [facility] [address] Care Team Providers Care Lpn Medical Assistant Name Role Phone Unavailable Primary Care Provider Unavailabl e Reason for Visit * Reason Comments Follow-up Encounter Details Date Type Department Care Team (Late st Contact Info) Description 10/31/2014 1:45 PM EDT Office [place] [id number] Sandhya Griffiths, [facility]EDIATRIC [place] [address] Convulsions, unspecified convulsion type; Headache; Headache(784.0); Dizziness Discharge Disposition: Home Social History Tobacco [...] Sign Reading Time Taken Comments Blood Pressure 116/66 10/31/2014 2:29 PM EDT Pulse 107 10/31/2014 2:29 PM EDT Temperature - - Respiratory Rate - - Oxygen Saturation - - Inhaled Oxygen Concentration - - Weight 98.3 kg (216 lb 12.8 oz) 10/31/2014 2:29 PM EDT Height 164.5 cm (5' 4.75) 10/31/2014 2:29 PM ED T Head Circumference 55.2 cm 10/31/2014 2:29 PM EDT Body Mass Index 36.36 10/31/2014 2:29 PM EDT Body Mass Index Percentile 98.23% 10/31/2014 2:2 9 PM EDT Growth Chart: [facility] (Girls, 2- 20 Years) documented in this encounter Patient Instructions * Patient Instructions* Sandhya Griffiths APRN - 10/31/2014 3:08 PM EDT Images from the original note were not included. 1. Please obtain labs today. You can call for the results later this week. 2. Continue Carbatrol 400 mg twice daily. 3. Schedule an EEG. You can call the following week for those results. 4. Make sure you're drinking lots of water throughout the day. Have a protein- rich snack at night, about an hour before going to bed. 5. If the nausea/vomiting persist, please see your PCP for further evaluation. 6. Follow up in 4-6 months, sooner as needed. [facility] A Healthy Lifestyle for Your Child: After Your Child's Visit Your Care Instructions A healthy lifestyle can help your child feel good, stay at a healthy weight, and have lots of energy for school and play. In fact, a healthy lifestyle will help your whole family. It also will show your child that everyone needs to take care of his or her health. Good food and plenty of exercise are the main things you can do to have a healthy lifestyle. Healthy eating means eating fruits and vege tables, lean meats and dairy, and whole grains. It also means not eating too much fat, sugar, and fast food. Your child can still eat desserts or other treats now and then. The goal is moderation. It is important for your child to stay at a healthy weight. A child who weighs too much may developserious health problems, such as high blood pressure, high cholesterol, or type 2 diabetes. Good eating habits and exercise are especially important if your child already has any health problems. You can follow a few tips to improve the health of your child and your whole family. Follow-up care is a avila part of your child's treatment and safety. Be sure to make and go to all appointments, and call your doctor if your child is having problems. It's also a good idea to know your child's test results and keep a list of the medicines your child takes. How can you care for your child at home? ?? Start with some small steps to improve your family's eating habits. You can cut down on portion sizes, drink less juice and soda pop, and eat more fruits and vegetables. ?? Eat smaller portions of food. A 3-ounce serving of meat, for example, is about the size of a deck of cards. ?? Let your child drink no more than 1 small cup of juice, sports drink, or soda pop a day. Have your child drink water when he or she is thirsty. ?? Offer more fruits and vegetables at meals and snacks. ?? Eat as a family as often as possible. Keep family meals fun and positive. ?? Make exercise a part of your family's daily life. Encourage your child to be active for at least1 hour every day. ?? Walk with your child to do errands or to the bus stop or school. ?? Take bike rides as a family. ?? Give every family member daily, weekly, or monthly chores, such as housecleaning, weeding the garden, or washing the car. ?? Let your child watch television or play video games for no more than 1 to 2 hours each day. Sit down with your child and plan out how he or she will use this time. ?? Do not put a TV in your child's room. ?? Be a good role model. Practice the eating and exercise habits that you want your child to have. Where can you learn more? Visit our health information library at http://Tryouts/Eight19info You can also view health information on [employer], your personal patient account. Log in or sign up today. Enter U981 in the search box to learn more about A Healthy Lifestyle for Your Child: After Your Child's Visit. ?? [id number] [employer]. Care instructions adapted under license by [facility]. This care instruction is for use with your licensed healthcare professional. If you have questions about a medical condition or this instruction, always ask your healthcare professional. [employer] disclaims any warranty or liability for your use of this information. Content Version: 10.3.050233; Current as of: May 25, 2013 documented in this encounter Progress Notes * Sandhya GriffithsDAMIAN - 10/31/2014 2:28 PM EDT Patient name: Federica Acosta Date of : 1995 History of Present Illness: Federica Acosta was seen today in clinic for follow up of seizure disorder. She is a 17-5/12ths year old last seen 07/[address] Dillon, here today with her mother. Patient Active Problem List Diagnosis Code ??? Cerebral seizure 345.90 ??? Dizziness 780.4 ??? Ear pain 388.70 ??? 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 Headache 784.0 ??? Seizures 780.39 At the last visit, Federica continued to be seizure-free and there was a discussion about weaning off Carbatrol. Federica did not feel comfortable with this and has continued on her anti-epileptics since that time. Today Federica and her mother report that Federica has had morning episodes of dizziness and nausea,sometimes with photophobia. This first occurred in August and has occurred on and off since then.She denies altered mental status, seizures, syncope, headaches, vomiting, or fevers. She has no abdominal pain during the day. She has a daily bowel movement which is not painful. The episodes tend not to happen on weekend when she is able to sleep in and ease into her morning. There have been no recent changes in medication and she has continued to take her medication daily. She has had to miss school for this several times. She has an appointment with an monitoring analyst next week. For the past few days she has had throat pain and congestion. In the past, her seizures involved abdominal pain, feeling like the room was spinning, and being unable to move. There was a motor component. She does not feel like this is happening with the episodes described above. She has had a total of two generalized tonic clonic seizures, both in 2010. Federica reports she drinks lots of water throughout the day. When asked without mother in the room, Federica reports she smokes marijuana, denies other drugs. She denies drinking alcohol. She reports she is not sexually active. Updated social history: She moved out of her father's home and is now living full-time with her mother. 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 Review of systems: As above. Appetite and energy are normal. No other EENT, cardiac, respiratory, gastrointestinal, genitourinary, musculoskeletal, skin, hematologic, endocrine, ID, or neurologic complaints. Medications 10/31/14 1427 Medication Sig Taking? carBAMazepine (CARBATROL) 200 mg Cap, Multiphasic Release 12 hr Take 2 capsules by mouth 2 times daily. Yes multivitamin (THERAGRAN) tablet Take 1 tablet by mouth daily. LORazepam (ATIVAN) 0.5 mg tablet Take 1-2 tablets by mouth as needed (up to 2 x daily for short seizures) for 30 days. diaZEPam (DIASTAT ACUDIAL) 12.5-15-17.5-[address] 12.5 mg rectally as needed (prolonged or frequent seizures). Physical Exam: Vitals: Filed Vitals: 10/31/14 1429 BP: 116/66 Pulse: 107 T= 98.5 (oral) Constitutional: Well-appearing, overweight female in NAD. HEENT: Normocephalic, atraumatic. Oropharynx is pink and moist, non-exudative. Neck: Supple with shotty cervical nodes. No meningismus. CV: RRR, S1, S2, no murmur Resp: CTAB Abd: Soft, nontender to palpation throughout. Ext: No edema. No bony deformity Skin: Warm, intact with no rashes Neuro: MS: A + O X 3. Speech is fluent and language is age-appropriate. Attention intact, follows complex commands CN: Pupils are equal, round, and reactive to light. Extraocular movements intact and eye gaze is conjugate. Optic fundi are benign. Face is symmetric. Motor: Normal bulk and tone. 5/5 strength in bilateral upper and lower extremities. No pronator drift. Sensation: Intact to light touch throughout. Reflexes: 1-2+ DTRs throughout. Coordination: FNF intact. Romberg is negative. Gait: Stable, steady, non-ataxic. Tandem gait is normal. Pertinent Labs: Diagnostic Tests/Images: 12/2010: INTERPRETATION: This EEG is probably normal during the awake and sleep states as well as during the activation procedures of hyperventilation and photic stimulation. The asymmetric high amplitude slow activity during hyperventilation is of unclear clinical significance. 12/2010 OPINION: Essentially normal MRI. Assessment: Patient Active Problem List Diagnosis ??? Seizures Overview Note: ??? Cerebral seizure Overview Note: The display Display name replaced automatically by utility run on 10/10/2011 ??? Dizziness ??? Ear pain Overview Note: ??? Sphenoid cyst Overview Note: ??? Headache Federica Acosta is a 19 y.o. seen today for follow up of seizure disorder now with intermittent morning episodes of nausea and dizziness. She has had no interval seizures. Federica is a pleasant young woman with a non-focal symmetric neuro exam. It is unlikely that these are seizures, as Federica has no change in mental status or motor equivalent with these episodes as she has had in the past. We will obtain an EEG to assess for seizure activity. If this is a normal study, we did discuss slowly weaning Federica off of her medications, which she is again uncomfortable with as she fears having a seizure in school. She is willing to initiate a taper over the summer when she is able to be at home during the day. We will obtain a medication level today to make sure these symptoms are not due to a medicationtoxicity. Also discussed staying well-hydrated and eating a protein-rich snack prior to bedtime. Would also recommend following up with her PCP if symptoms persist. Plan: 1. Please obtain labs today. You can call for the results later this week. 2. Continue Carbatrol 400 mg twice daily. 3. Schedule an EEG. You can call the following week for those results. If the results are normal, we will discuss initiating a medication taper this summer if Federica is in agreement. 4. Make sure you're drinking lots of water throughout the day. Have a protein- rich snack at night, about an hour before going to bed. 5. If the nausea/vomiting persist, please see your PCP for further evaluation. 6. Follow up in 4-6 months, sooner as needed. ADDENDUM: Results for FEDERICA ACOSTA ( ) as of 11/01/2014 13:38 Ref. Range 10/31/2014 15:42 Sodium Latest Range: 135-145 mmol/L 140 Potassium Latest Range: 3.5-5.0 mmol/L 4.0 Chloride Latest Range: 98-107 mmol/L 98 CO2 Latest Range: 22-31 mmol/L 26 Anion Gap Latest Range: 5-15 mmol/L 16 (H) BUN Latest Range: 10-20 mg/dL 9 (L) Creatinine Latest Range: 0.20-0.70 mg/dL 0.86 (H) Estimated GFR Latest Range: >=60 See note Glucose Lvl Latest Range: 60-199 mg/dL 96 Calcium Latest Range: 8.5-10.5 mg/dL 9.7 Total Protein Latest Range: 6.4-8.3 gm/dL 8.3 Albumin Latest Range: 3.2-5.2 gm/dL 4.3 Total Bilirubin Latest Range: <=1.0 mg/dL 0.3 Bili, Direct Latest Range: 0.0-0.3 mg/dL 0.1 Alk Phos Latest Range: 55-140 unit/L 140 AST Latest Range: 5-30 unit/L 13 ALT Latest Range: 0-25 unit/L 13 Carbamazepine Lvl Latest Range: 8.0-12.0 mg/L 10.1 Ref. Range 10/31/2014 15:42 WBC Latest Range: 4.5-13.0 x10(3)/mcL 16.7 (H) RBC Latest Range: 4.10-5.10 x10(6)/mcL 4.54 Hemoglobin Latest Range: 12.0-16.0 gm/dL 13.7 Hematocrit Latest Range: 36.0-46.0 % 40.6 MCV Latest Range: 76.0-98.0 fL 89.4 MCH Latest Range: 25.0-35.0 pg 30.2 MCHC Latest Range: 32.0-36.5 gm/dL 33.7 RDWSD Latest Range: 35.0-46.0 fL 42.7 RDWCV Latest Range: 10.9-14.4 % 13.1 Platelets Latest Range: 145-370 x10(3)/mcL 276 MPV Latest Range: 9.0-12.0 fL 9.3 Neutr Abs (ANC) Latest Range: 1.50-8.00 x10(3)/mcL 11.20 (H) documented in this encounter Plan of Treatment Not on file documented as of this encounter Procedures Procedure Name Priority Date/Time Associated Diagnosis Comments POCT URINE Routine 10/31/2014 4:26 PM EDT Convulsions, unspecified convulsion type Headache SCAN, PERIPHERAL BLOOD Routine 5 3:42 PM EDT HEMOGRAM Routine 10/31/2014 3:42 PM EDT Convulsions, unspecified convulsion type Headache(784.0) DIFFERENTIAL, AUTOMATED Routine 10/31/2014 3:42 PM EDT Convulsions, unspecified convulsion type Headache(784.0) CBC (WITH DIFF) Routine 10/31/2014 3:42 PM EDT Convulsions, unspecified convulsion type Headache CARBAMAZEPINE LEVEL, TOTAL Routine 10/31/2014 3:42 PM EDT Convulsions, unspecified convulsion type Headache COMPREHENSIVE METABOLIC PANEL Routine 10/31/2014 3:42 PM EDT Convulsions, unspecified convulsion type Headache documented in this encounter Results * POCT urine (10/31/2014 4:26 PM EDT) [facility] POC Urine HCG Negative Negative - Negative POC Control Internal Controls Acceptable 10/31/2014 4:26 PM EDT Nayla Dillon MD POINT OF CARE TEST O RDERABLES * Scan, Peripheral Blood (10/31/2014 3:42 PM EDT) Pathologist [facility] Plat estimate Normal CERNER MILLENNIUM RBC Morphology Normal CERNE R MILLENNIUM Blood specimen (specimen) 10/31/2014 3:42 PM EDT 10/31/2014 3:54 PM EDT Narrative Resulting Agency Comment Spec In Lab Nayla Dillon MD HEMATOLOGY ORDERABLE S [facility] * (ABNORMAL) Differential, Automated (10/31/2014 3:42 PM EDT) Neutrophil % 67.2 % CERNER MILLENNIUM Neutrophil Absolute 11.20(H) 1.50 - 8.00 x10(3)/mc L CERNER MILLENNIUM Lymph % 19.8 % CERNER MILLENNIUM Lymphocytes Abs 3.3 1.2 - 5.2 x10(3)/mc L CERNER MILLENNIUM Monocyte % 10.3 % CERNER MILLENNIUM Monocyte Abs 1.7(H) 0.2 - 1.0 x10(3)/mc L CERNER MILLENNIUM Eos % 2.3 % CERNER MILLENNIUM Eosinophils Abs 0.4 0.0 - 0.5 x10(3)/mc L CERNER MILLENNIUM Basophil % 0.2 % CERNER MILLENNIUM Baso Absolute 0.0 0.0 - 0.2 x10(3)/mc L CERNER MILLENNIUM Immature Gran % 0.20 % CERN ER MILLENNIUM Comment: Immature granulocytes(IG's)percentage and absolute count will include metamyelocytes, myelocytes, and promyelocytes. Blood smears from CBCs yielding IG's will be scanned manually for concordance. If this scan disagrees with the automated IG or if promyelocytes are noted, a manual differential will be performed. Immature Gran Absolute 0.03 0.00 - 0.05 x10(3)/mc L CERNER MILLENNIUM Blood specimen (specimen) 10/31/2014 3:42 PM EDT 10/31/2014 3:54 PM EDT Narrative Resulting Agency Comment Spec In Lab Nayla Dillon MD HEMATOLOGY ORDERABLE S [facility] * (ABNORMAL) Hemogram (10/31/2014 3:42 PM EDT) White Blood Cell 16.7(H) 4.5 - 13.0 x10(3)/mc L CERNER MILLENNIUM Red Blood Cell 4.54 4.10 - 5.10 x10(6)/mc L CERNER MILLENNIUM Hemoglobin 13.7 12.0 - 16.0 gm/dL CERNER MILLENNIUM Hematocrit 40.6 36.0 - 46.0 % CERNER MILLENNIUM Mean Cell Volume 89.4 76.0 - 98.0 fL CERNER MILLENNIUM Mean Cell Hemoglobin 30.2 25.0 - 35.0 pg CERNER MILLENNIUM Mean Cell Hemoglobin Concentration 33.7 32.0 - 36.5 gm/dL CERNER MILLENNIUM Platelet 276 145 - 370 x10(3)/mc L CERNER MILLENNIUM RDW Standard Deviation 42.7 35.0 - 46.0 fL CERNER MILLENNIUM RDW coefficient of variation 13.1 10.9 - 14.4 % CERNER MILLENNIUM Mean Platelet Volume 9.3 9.0 - 12.0 fL CERNER MILLENNIUM Blood specimen (specimen) 10/31/2014 3:42 PM EDT 10/31/2014 3:54 PM EDT Narrative Resulting Agency Comment Spec In Lab Nayla Dillon MD HEMATOLOGY ORDERABLE S [facility] * (ABNORMAL) Comprehensive metabolic panel (non-fasting) (10/31/2014 3:42 PM EDT) [facility] Glucose 96 60 - 199 mg/dL CERNER MILLENNIUM Comment:Diabetes: >=200 mg/d L plus symptoms Blood Urea Nitrogen 9(L) 10 - 20 mg/dL CERNER MILLENNIUM Creatinine 0.86(H) 0.20 - 0.70 mg/dL CERNER MILLENNIUM Comment: Please note that the pediatric reference intervals supplied above were not validated at [facility]. Results from pediatric patients should be interpreted in conjunction to the patient's age, height and muscle mass. Sodium 140 135 - 145 mmol/L CERNER MILLENNIUM Potassium 4.0 3.5 - 5.0 mmol/L CERNER MILLENNIUM Comment: Please note: ??Patients with WBC >100,000 may have falsely elevated Potassium levels. ??For accurate Potassium quantification in these patients send serum separator tube (gold top) for subsequent determinations. ??Contact the Clinical Chemistry Laboratory if there are any questions. Chloride 98 98 - 107 mmol/L CERNER MILLENNIUM Carbon Dioxide 26 22 - 31 mmol/L CERNER MILLENNIUM Anion Gap 16(H) 5 - 15 mmol/L CERNER MILLENNIUM Calcium 9.7 8.5 - 10.5 mg/dL CERNER MILLENNIUM Protein, Total 8.3 6.4 - 8.3 gm/dL CERNER MILLENNIUM Albumin 4.3 3.2 - 5.2 gm/dL CERNER MILLENNIUM Aspartate Aminotransferase 13 5 - 30 unit/L CERNER MILLENNIUM Alanine Aminotransferase 13 0 - 25 unit/L CERNER MILLENNIUM Alkaline Phosphatase 140 55 - 140 unit/L CERNER MILLENNIUM Bilirubin, Total 0.3 <=1.0 mg/dL CERNER MILLENNIUM Bilirubin, Direct 0.1 0.0 - 0.3 mg/dL CERNER MILLENNIUM Est Glomerular Filtration Rate See note >=60 CERNER MILLENNIUM Comment: Calculated GFR not appropriate for patients less than 18 years of age. This estimated GFR (eGFR) value was calculated [...] the following links into your internet browser. [email or web address] Blood specimen (specimen) 10/31/2014 3:42 PM EDT 10/31/2014 3:54 PM EDT Narrative Resulting Agency Comment Spec In Lab Nayla Dillon MD CHEMISTRY ORDERABLES [facility] * Carbamazepine level, total (10/31/2014 3:42 PM EDT) Carbamazepine 10.1 8.0 - 12.0 mg/L CERNER MILLENNIUM Comment: Therapeutic range: ??8-12 mg/L Toxic: ??> 12 mg/L Blood specimen (specimen) 10/31/2014 3:42 PM EDT 10/31/2014 3:54 PM EDT Narrative Resulting Agency Comment Spec In Lab Nayla Dillon MD CHEMISTRY ORDERABLES [facility] documented in this encounter Visit Diagnoses Diagnosis Convulsions, unspecified convulsion type Headache Dizziness Dizziness and giddiness documented in this encounter
--- OUTSIDE RECORDS SUMMARY | 2024-02-17 13:33 | XMS_ITS | Encounter Summary ---
Author Organization Formerly [facility] Address [facility] [place] [address] Care Team Providers Care Self Pay Representative Name Role Phone Jerrica Healy Primary Care Provider [phone] Encounter Details Date Type Department Care Team (Late st Contact Info) Description 11/29/2016 2:30 PM EDT [place] [address] Ferdinand Mills MD [facility] [place] [place] [address] Seizure disorder Social History Tobacco Use Types [...] Sign Reading Time Taken Comments Blood Pressure 111/56 11/29/2016 2:39 PM EDT Pulse 97 11/29/2016 2:39 PM EDT Temperature - - Respiratory Rate - - Oxygen Saturation - - Inhaled Oxygen Concentration - - Weight 114.4 kg (252 lb 3.2 oz) 11/29/2016 2:39 PM EDT Height 165.1 cm (5' 5) 11/29/2016 2:39 PM EDT Body Mass Index 41.97 11/29/2016 2:39 PM EDT documented in this encounter Patient Instructions * Patient Instructions* Ferdinand Mills MD - 11/29/2016 2:30 PM EDT I think you're doing reasonably well. Your EEG done here today is entirely normal. We did not however capture any of your spells I'm not convinced, at this time, that the spells are epileptic in character. Patient's during can have a variety of unusual sensations I think you should remain on Lamictal for now. If the dizziness does not wear off this week, you may reduce the dose next week to 1 pill twice a day, down from 1 pill 3 times a day If you have any larger spells please call. I would like to get a 24 hour ambulatory EEG where you would go home with wires and a computer for a day and we would try to capture one of your spells. Push the button if you feel one coming on I'll see you back after that has been done. I think it is medically appropriate for you to return to work Ferdinand Mills MD [place] [address] Pager: [phone], #[phone] Email: [email or web address] documented in this encounter Progress Notes * Ferdinand Mills MD - 11/29/2016 2:30 PM EDT Neurology Clinic Note Chief [...] has had a routine EEG done in [facility] which I read and was normal. [...] subsequently it also became apparent that her MED SPECIALIST office did not want her to be on Tegretol. Interval History: The patient is doing reasonably well. Because she was I recommended a crossover to Lamictal. She is now on 100 mg 3 times a day.She complains a little dizziness. She has had no major motor seizures. She thinks she is still having minor events. Her boyfriend describes brief unresponsive spells with eye flutter. She can have several in a day. A routine EEG done here today is completely normal. However no events were captured. She describes some feelings of pressure in her head. Past medical history: Patient Active Problem List [...] daily. 90 tablet 5 ??? vitamin with cfgmpizl-Nz-[id number]-[id number] Tablet Take by mouth daily. ??? folic [...] in 2006 Impression and suggestions: It is not altogether clear what is going on. [...] smaller spells were also epileptic. At present, she describes spells of eye fluttering and head pressure, and had some eye flutter during a routine EEG but no subjective symptoms. I recommended that she remain on Lamictal 100 mg 3 times a day but if dizziness persists, she can reduce the dose to 100 mg twice a day. I will also obtain a 24-hour ambulatory EEG where we try to capture some more of her spells. For the feelings of head pressure during I would recommend Tylenol only. Thank you for this consultation. I will see the patient back in a few weeks, in conjunction with a 24-hour ambulatory EEG or sooner if necessary Ferdinand Mills MD [place] [address] Pager: [phone], #[phone] Email: [email or web address] CC: Jerrica Ortiz documented in this encounter Miscellaneous Notes * Addendum Note - Volodymyr Leahy - 11/29/2016 3:59 PM EDTAddended by: VOLODYMYR LEAHY on: 11/29/2016 03:59 PM Modules accepted: Orders documented in this encounter Plan of Treatment Not on file documented as of this encounter Procedures Procedure Name Priority Date/Time Associated Diagnosis Comments LAMOTRIGINE LVL Routine 11/29/2016 4:16 PM EDT Seizure disorder HEMOGRAM Routine 11/29/2016 4:16 PM EDT Seizure disorder DIFFERENTIAL, AUTOMATED Routine 11/29/2016 4:16 PM EDT Seizure disorder CBC (WITH DIFF) Routine 11/29/2016 4:16 PM EDT Seizure disorder HEPATIC FUNCTION PANEL Routine 11/29/2016 4:16 PM EDT Seizure disorder BASIC METABOLIC PANEL Routine 11/29/2016 4:16 PM EDT Seizure disorder documented in this encounter Results * 24 Hour EEG, Portable (01/02/2017 10:09 AM EDT) Narrative Ferdinand Mills MD - 01/02/2017 10:09 AM EDT Ferdinand Mills MD ? 01/02/2017 10:09 AM [facility] Department of Neurology 24 HOUR AMBULATORY EEG [...] 90 tablet 5 ? ? vitamin with wxyvndht-Lm-Yzny-FA Tablet Take ??by mouth daily. ? folic acid (FOLVITE) 1 mg Tablet Take 1 pill in AM and 2 pills in PM. 30 tablet 12 No current facility-administered medications for this encounter. ?? METHODS: A 21 channel digitized electroencephalogram was performed in the [facility], and in the patient's home. The 10/20 international system of electrode placement was used and bipolar and referential electrode montages were recorded. ??In addition to EEG the patient was monitored for EKG and lateral/vertical eye movements. Video was on at the beginning of the recording. The duration of the recording was 24 HOURS. MOTOR SCOOTER MECHANIC'S REPORT: Performed by: AT Patient was not [...] alarms recorded. Rodney Durand MD Epilepsy Fellow #[id number] 12/31/2016 9:12 AM. CC: [email or web address] Nolasco Neurology Attending I have personally reviewed the EEG, and I agree with the details as written. ?? The above report was formulated in discussion with me at the time of EEG reading, and I agree with it as documented. Ferdinand Mills [place] [address] Pager: [phone], #[phone] Email: [email or web address] Ferdinand Mills MD NEUROLOGY ORDERABLES * (ABNORMAL) Differential, Automated (11/29/2016 4:16 PM EDT) Neutrophil % 70.5 % [facility] Neutrophil Absolute 10.18(H) 1.70 - 6.10 x10(3)/mc L [facility] Lymph % 19.9 % [facility] Lymphocytes Abs 2.9 0.9 - 3.2 x10(3)/[facility] Monocyte % 4.9 % [facility] Monocyte Abs 0.7 0.3 - 0.9 x10(3)/[facility] Eos % 3.7 % [facility] Eosinophils Abs 0.5(H) 0.0 - 0.4 x10(3)/[facility] Basophil % 0.3 % [facility] Baso Absolute 0.0 0.0 - 0.1 x10(3)/[facility] Immature Gran % 0.70 % [facility] Comment: Immature granulocytes(IG's)percentage and absolute count will include metamyelocytes, myelocytes, and promyelocytes. Blood smears from CBCs yielding IG's will be scanned manually for concordance. If this scan disagrees with the automated IG or if promyelocytes are noted, a manual differential will be performed. Immature Gran Absolute 0.10(H) 0.00 - 0.04 x10(3)/[facility] Blood specimen (specimen) 11/29/2016 4:16 PM EDT 11/29/2016 4:28 PM EDT Narrative Resulting Agency Comment Spec In Lab Ferdinand Mills MD HEMATOLOGY ORDERABLE S [facility] [place] [address] * (ABNORMAL) Hemogram (11/29/2016 4:16 PM EDT) White Blood Cell 14.4(H) 4.0 - 9.5 x10(3)/[facility] Red Blood Cell 4.20 4.00 - 5.21 x10(6)/[facility] Hemoglobin 12.3 11.7 - 15.5 gm/dL [facility] Hematocrit 36.0 35.7 - 45.8 % [facility] Mean Cell Volume 85.7 82.6 - 94.[address] [facility] Mean Cell Hemoglobin 29.3 27.1 - 32.[address] [facility] Mean Cell Hemoglobin Concentration 34.2 31.7 - 35.0 gm/dL [facility] Platelet 321 145 - 357 x10(3)/mc L [facility] RDW Standard Deviation 42.8 37.0 - 46.[address] [facility] RDW coefficient of variation 14.0 11.5 - 14.1 % [facility] Mean Platelet Volume 9.0 7.6 - 12.[address] [facility] NRBC% auto 0.0 % [facility] NRBC Absolute 0.000 0.000 - 0.000 x10(3)/mc L [facility] Blood specimen (specimen) 11/29/2016 4:16 PM EDT 11/29/2016 4:28 PM EDT Narrative Resulting Agency Comment Spec In Lab Ferdinand Mills MD HEMATOLOGY ORDERABLE S [facility] [place] [address] * Lamotrigine Lvl (11/29/2016 4:16 PM EDT) Lamotrigine Lvl (NOVEMBER) 2.5 2.5 - 15.0 mcg/mL [facility] Comment: ADDITIONAL INFORMATION This test was developed and its performance characteristics determined by [facility] in a manner consistent with CLIA requirements. This test has not been cleared or approved by the U.S. Food and Drug Administration. Test Performed by: [facility] - [address] [address] Blood specimen (specimen) 11/29/2016 4:16 PM EDT 11/30/2016 8:33 AM EDT Narrative Resulting Agency Comment Spec In Lab Ferdinand Mills MD LAB SEND OUT ORDERAB LES [facility] [place] [address] * (ABNORMAL) Basic Metabolic Panel (non-fasting) (11/29/2016 4:16 PM EDT) Glucose 81 65 - 199 mg/dL [facility] Comment:Diabetes: >=200 mg/d L plus symptoms Blood Urea Nitrogen 4(L) 10 - 20 mg/dL [facility] Creatinine 0.53(L) 0.70 - 1.20 mg/dL [facility] Comment: Please note that the pediatric reference intervals supplied above were not validated at [facility]. Results from pediatric patients should be interpreted in conjunction to the patient's age, height and muscle mass. Sodium 136 135 - 145 mmol/L [facility] Potassium 3.9 3.5 - 5.0 mmol/L [facility] Comment: Please note: ??Patients with WBC >100,000 may have falsely elevated Potassium levels. ??For accurate Potassium quantification in these patients send serum separator tube (gold top) for subsequent determinations. ??Contact the Clinical Chemistry Laboratory if there are any questions. Chloride 99 98 - 107 mmol/L [facility] Carbon Dioxide 23 22 - 31 mmol/L [facility] Anion Gap 14 5 - 15 mmol/L [facility] Calcium 9.5 8.5 - 10.5 mg/dL [facility] Est Glomerular Filtration Rate >60 >=60 [facility] Comment: This estimated GFR (eGFR) [...] the following links into your internet browser. [email or web address] Blood specimen (specimen) 11/29/2016 4:16 PM EDT 11/29/2016 4:28 PM EDT Narrative Resulting Agency Comment Spec In Lab Ferdinand Mills MD CHEMISTRY ORDERABLES Performing Organization Address City/[facility] Co de Phone Number [facility] [place] [address] * Hepatic Function Panel (11/29/2016 4:16 PM EDT) Protein, Total 7.3 6.1 - 8.0 gm/dL [facility] Albumin 4.0 3.2 - 5.2 gm/dL [facility] Aspartate Aminotransferase 8 5 - 30 unit/L [facility] Alanine Aminotransferase 10 0 - 25 unit/L [facility] Alkaline Phosphatase 101 55 - 140 unit/L [facility] Bilirubin, Total 0.2 0.2 - 1.3 mg/dL [facility] Bilirubin, Direct 0.1 0.0 - 0.3 mg/dL [facility] Blood specimen (specimen) 11/29/2016 4:16 PM EDT 11/29/2016 4:28 PM EDT Narrative Resulting Agency Comment Spec In Lab Ferdinand Mills MD CHEMISTRY ORDERABLES Performing Organization Address [facility] Co de Phone Number [facility] [place] [address] documented in this encounter Visit Diagnoses Diagnosis Seizure disorder Unspecified epilepsy without mention of intractable epilepsy Seizure disorder Unspecified epilepsy without mention of intractable epilepsy documented in this encounter Care Teams Self Pay Representative Relationship Specialty Start Date End Date Jerrica Healy PA [address] [place] [id number] PCP - General Family Medicine 12/26/15 documented as of this encounter
--- OUTSIDE RECORDS SUMMARY | 2024-02-17 13:33 | XMS_ITS | Encounter Summary ---
Author Organization [facility] Address [facility] [place] [address] Care Team Providers Care Senior Field Engineer Name Role Phone Unavailable Primary Care Provider Unavailabl e Reason for Visit * Reason Comments Follow-up Encounter Details Date Type Department Care Team (Late st Contact Info) Description 07/15/2011 10:15 AM EST Office [place] [address] Nayla Dillon MD [facility] [place] [address] Dizziness; Seizures Discharge Disposition: Home Social History Tobacco Use [...] Sign Reading Time Taken Comments Blood Pressure 116/68 07/15/2011 10:16 AM EST Pulse 90 07/15/2011 10:16 AM EST Temperature - - Respiratory Rate 18 07/15/2011 10:1 6 AM EST Oxygen Saturation - - Inhaled Oxygen Concentration - - Weight 94.6 kg (208 lb 9.6 oz) 07/15/19 12 10:16 AM EST Height 161 cm (5' 3.39) 07/15/2011 10: 16 AM EST Head Circumference 56 cm 07/15/2011 10 :16 AM EST Body Mass Index 36.5 07/15/2011 10:16 AM EST Body Mass Index Percentile 99.41% 07/15 10:16 AM EST Growth Chart: [facility] (Girls, 2- 20 Years) documented in this encounter Patient Instructions * Patient Instructions* Magalie Magana RN - 07/15/2011 10:39 AM EST Continue Carbatrol at 400mg, twice daily. No bloodwork needed until next visit, or if problems arise. Anticipate treatment for 2 years. Follow-up in [address] Dillon. documented in this encounter Progress Notes * Nayla Dillon MD - 07/15/2011 10:45 AM EST Federica Acosta was seen for followup of seizure disorder on 07/15/2011. INTERVAL HISTORY: Since I last saw Federica three months ago during the inpatient video EEG testing indicates she is 14-1/12 years of age and told she was doing well on eighth grade and hoping to make the honor roll. During the video EEG admission in April, she had multiple episodes of dizziness. There were subtle EEG correlates during each of these episodes which were stereotypic and thought to represent deep seizure focus. After the admission, we gradually transitioned from Keppra to Carbatrol. I am told that since that transition was completed, in early May, she has had no episodes of dizziness, neither have ever been any motor seizures of which she has had several over the years. General health is described as good. We have coordinated three rounds of blood testing done locally, as antiepileptic medication was adjusted. In mid May, the Tegretol level was 13.6; in early June, it was 12.3; and earlier this week was 11.9. CBC with electrolytes and BUN and creatinine have all been normal. MRI last summer was also normal. CURRENT NEUROLOGIC MEDICATION: Carbatrol 400 mg b.i.d. ALLERGIES: SHE HAS NO ALLERGIES TO MEDICATIONS. PHYSICAL EXAMINATION: Physical exam shows a well-appearing, cooperative adolescent without seizure activity or dizziness. Blood pressure is 116/68, heart rate is 70, and respiratory rate is 18. Weight is 94 kg. Cardiac exam is benign. Gait is normal. Romberg is negative. Language is fluent without errors. Pupils are equal and reactive. Eye movements are full and conjugate. Face is symmetric. There is no pronator drift. There is no appendicular ataxia. Deep tendon reflexes are not increased. ASSESSMENT: 1. Symmetric nonfocal elemental neurologic exam. 2. Seizure disorder, manifest as paroxysmal dizziness, has been nicely suppressed on Carbatrol. 3. Carbatrol level in high therapeutic range without evidence of other metabolic or hematopoietic side effects. RECOMMENDATIONS: 1. Continue current Carbatrol regimen. 2. Follow up in six months' time or sooner if indicated. 3. We talked about the strategy of treating for at least two years and if all goes well, consider repeat EEG and/or medication wean at that time. documented in this encounter Plan of Treatment Not on file documented as of this encounter Visit Diagnoses Diagnosis Dizziness Dizziness and giddiness Seizures Other convulsions documented in this encounter
--- OUTSIDE RECORDS SUMMARY | 2024-02-17 13:33 | XMS_ITS | Encounter Summary ---
Author Organization [facility] Address [facility] [place] [address] Care Team Providers Care Job Training Specialist Name Role Phone Unavailable Primary Care Provider Unavailabl e Encounter Details Date Type Department Care Team (Latest Contact Info) Description 04/21/2011 1:50 PM EDT - 04/22/2011 1:56 PM EDT Hospital Encounter [place] [id number] Nayla Dillon MD [facility] [address] [place] [address] Seizure; Seizures cerebral; Acute, but ill-defined, cerebrovascular disease Discharge Disposition: Home Social History Tobacco Use [...] Sign Reading Time Taken Comments Blood Pressure 117/52 04/22/2011 1:00 PM EDT Pulse 95 04/22/2011 1:00 PM EDT Temperature 36.6 ??C (97.9 ??F) 04/22/2011 1:00 PM ED T Respiratory Rate 22 04/22/2011 1:00 PM EDT Oxygen Saturation - - Inhaled Oxygen Concentration - - Weight 92.3 kg (203 lb 7.8 oz) 04/21/2011 2:13 P M EDT Height 160 cm (5' 3) 04/21/2011 2:13 PM EDT Body Mass Index 36.05 04/21/2011 2:13 PM EDT Body Mass Index Percentile 99.39% 04/21/2011 2:1 3 PM EDT Growth Chart: [facility] (Girls, 2- 20 Years) documented in this encounter Discharge Instructions * Patient Instructions* Wale Ahmadi MD - 04/22/2011 12:47 PM EDT Please continue your home Keppra schedule. Continue to diastat for seizures that are tonic-clonic, or last longer than 5 mins. Neurology will contact you regarding the results of your EEG and for follow-up appointments. documented in this encounter Medications at Time of Discharge Medication Sig Dispensed Refills Start Date End Date leveTIRAcetam (KEPPRA) 500 mg tabletIndications:Seiz ure Take 3 tablets by mouth 2 times daily. 180 tablet 5 01/14/2011 09/07/2012 LORazepam (ATIVAN) 0.5 mg tabletIndications:Seiz ure Take 1-2 tablets by mouth as needed (up to 2 x daily for short seizures) for 30 days. 15 tablet 1 01/14/2011 02/10/2016 diaZEPam (DIASTAT ACUDIAL) 12.5-15-17.5-[address] 12.5 mg rectally as needed (prolonged or frequent seizures). 1 kit 2 12/28/2010 02/10/2016 documented as of this encounter Progress Notes * Jaylyn Corado RN - 04/22/2011 9:39 AM EDT Office of Care Management(OCM)/Clinical Speedometer Inspector(CRC)Initial Assessment O: Reviewed chart. Introduced self to patient and Mom and reviewed CRC role. Admitted with:Seizures for VEEG Home/community services prior to admission:None DIAMOND SANDY MD @PCPADD@ [phone] Insurance:Vt Primary Family supports:Wale lives with her mom, dad, older sister, younger brother, and dog. She is in the8th grade and her favorite subject is math. Transportation @ d/c: Family vehicle Social Work consult: No issues Anticipated needs for discharge: None P: CRC spoke to Mom about discharge needs, she does not identify any needs at this time. She feels comfortable with her follow-up care. CRC to follow with Team and Family for coordination of disposition if any needs arise. * Rocio Perez RN - 04/22/2011 6:29 AM EDT Noted at 0540 that video eeg system was not running. Notice stated it was not responding and it wasattempting to switch to secondary system. System had been checked at 0500 and was running fine then. After speaking to the production engine repairer military technology manager, the system was rebooted and no further issues were noted. Wale was sleeping through the down time with no episodes noted by RN or mother. documented in this encounter H&P Notes * Nayla Dillon MD - 04/21/2011 5:01 PM EDT Inpatient - Admission Note Problem List: - Seizures (3 generalized tonic-clonic) - Dizzy spells associated with right arm twitching, left temporal headache, and left ear pain Active Non-Hospital Problems Diagnoses ??? Seizures cerebral ??? Dizziness ??? Ear pain ??? Sphenoid cyst ??? Headache ID: 15 y.o. Female [place] [facility] for reported dizzy episodes associated with right armtwitching, left temporal headache, and left ear pain. History of Present Illness: YOUSIF Acosta is a 15 year old female with history of generalized tonic-clonic seizures complaining of 5-6 dizzy spells a day which she has had for about 4 years. Wale's first seizure occurred at theage of 7 and was generalized tonic- clonic. Her mother states that it occurred after she drank ~ 30 ounces of Pepsi Blue and was told that this might be associated with the onset. She was not put on any AEDs after this episode and remained without seizures until she started experiencing these dizzy spells in the 4th grade. These have continue up until she had two generalized tonic-clonic seizures this year (one in December and one in January). By mother's report, these generalized seizure last about 5 minutes and occur with greater movement on the right side. She has had tongue biting, urinary incontinence, and post-ictal confusion, sleepiness, and nausea associated with these episodes. They occurred while she was asleep. Wale had an EEG done in December that showed left sided cortical slowing. Shewas started on Keppra in December and then the dose was increased to 1500 mg BID after the second episode in January. She has not had a repeat generalized episode but has continued to have what she reports as dizzy spells. These occur with sleep but sometimes with changing position (i.e. arising from seated position). She feels like the room is spinning around her, develops twitching in her right arm, but does notlose consciousness. They are often accompanied by left temporal stabbing headache and ear pain. Shepresents [place] [facility] [place] of one of these events. Review of Systems General: Negative for recent weight loss (has in fact gained weight since staring Keppra), fever, chills, night sweats HEENT: Negative for discharge from ear or nose, negative for change in hearing and vision, negativefor sore throat Cardiac: Negative for chest pain Pulm: Negative for SOB GI: Negative for N/V/C/D Neuro Negative for significant headaches, weakness, parasthesias MS Negative for pain in extremities or weakness Skin No recent rashes. Past Medical and Surgical History: Tonsils and adenoids removed Prior To Admission Medications: Prescriptions prior to admission Medication Sig Dispense Refill ??? leveTIRAcetam (KEPPRA) 500 mg tablet Take 3 tablets by mouth 2 times daily. 180 tablet 5 ??? LORazepam (ATIVAN) 0.5 mg tablet Take 1-2 tablets by mouth as needed (up to 2 x daily for shortseizures) for 30 days. 15 tablet 1 ??? diaZEPam (DIASTAT ACUDIAL) 12.5-15-17.5-[address] 12.5 mg rectally as needed (prolonged or frequent seizures). 1 kit 2 ??? DISCONTD: propranolol (INDERAL) 10 mg tablet 10 MG = 1 Tablet(s), PO, Twice daily Allergies: No Known Allergies Family History: Strong family history of seizures: Maternal grandfather, 2 maternal uncles, and 1 maternal aunt The mother states that Wale's generalized episodes have been very similar to those of her aunt. Social History and Habits: Wale lives with her mom, dad, older sister, younger brother, and dog. She is in the 8th grade and her favorite subject is math. Immunizations: Wale's mother reports that her immunizations are up to date. Physical Exam: Last Set of Vitals and range of vitals over past 24 hours: Last value Range last 24 hrs Temperature Temp: 36.8 ??C (98.2 ??F) Temp: [36.8 ??C (98.2 ??F)] Heart Rate Heart Rate: 98 Heart Rate: [98] Blood Pressure BP: 106/85 mmHg BP: (106)/(85) Respiratory Rate Resp: 16 Resp: [16] SpO2 SpO2: -- Physical Exam Gen: NAD, lying in bed with EEG monitors and head wrap, not talkative, but smiles during the exam HEENT: Atraumatic, Normocephalic, MMM, no lesions in mouth, right TM clear, left ear covered by EEGwrap CV: RRR, no murmurs rubs or gallops, good capillary refill Pulm: CTA bilaterally, no increased work of breathing GI: Soft, NT/ND, +BS Neuro: PERRL, CN II-XII intact, patellar and achilles reflexes intact bilaterally Laboratory (Last 24 Hours): No results found for this or any previous visit (from the past 24 hour(s)). Assessment: Wale is a 15 year old F being with history of 3 episodes of generalized tonic- clonic seizures (mostrecent 01/14/11) being admitted for VEEG monitoring for continued dizzy spells on max dose of Keppra. Plan: ?? Overnight VEEG monitoring ?? Continue Keppra 1500 mg po BID ?? Administer rectal Diastat for episode of generalized tonic-clonic seizure ?? Up ad riaz ?? Regular diet ?? Currently no need for IV access or I+O monitoring A copy of this document will be sent to the patient's Primary Care Physician and/or Referring Physician. ALICIA III, Efren Armas, participated in the care of this patient. I independently confirmed the history and physical exam findings and formulated the assessment and plan as documented in this note.My evaluation is below: HPI: In brief, Wale is a 15 year old with a history of 3 tonic clonic seizures (1 at age 7 and 2 this December/January) which have been controlled on Keppra who presents for EEG evaluation for her dizzy episodes which have increased in frequency over the past few months despite Keppra. Episodes started when she was in 4th grade (approximately 4 years ago). She gets the feeling that she's going to have an episode and the room starts to spin around. Episodes are often accompanied by left sided temporal head and ear pain. She also has mild right arm twitching with episodes. No LOC or incontinence. Theyusually last for 30-60 seconds and are occuring 5-6 times a day. No post ictal time after these epis odes. They are sometimes triggered by decreased intake and by position changes. She has seen a local ENT who does not believe the episodes are vertiginous. 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 She also had an EEG in December which demonstrated left sided slowing. PE: Gen: well appearing, overweight young lady with EEG leads on, affect slightly flat, hard to engage. HEENT: mmm, PERRL, EOMI. R TM is normal, unable to visualize L TM due to EEG leads CV: rrr, no murmur Pulm: CTAB, no inc wob Abd: soft, non tender, no masses MS: MAEW Neuro: CNII-XII grossly intact, 5/5 strength A/P: 15 year old with a history of 3 TC seizures who presents with increased number of dizzy spellsover the past few months. Etiology includes vertigo, seizures, orthostasis (given position changes induce). Important to evaluate with video EEG monitoring to assess for seizure activity. -overnight video EEG -continue home keprra of 1500mg BID -diastat 20mg for TC seizure > 5 minutes SWAPNIL LEZAMA MD 04/21/2011 PNE STAFF Interval hx reviewed with patient and Mo. Agree with details as noted above. IMP ?? Sz disorder, motor sz well controlled with keppra ?? Paroxysmal dizziness, rule out breath thru sz (ENT eval was negative.) ?? Normal neuroimaging PLAN ?? Continue Keppra ?? vEEG to capture events documented in this encounter Procedure Notes * Jemal Carbone MD - 04/22/2011 12:00 AM EDTProcedure(s): EEG W TELEMETRY FOR CEREBRAL SEIZURE EA 24 HRS, HOSPITAL Pre-Procedure Diagnose(s): Seizure Post-Procedure Diagnose(s): Seizure 24 HOUR VIDEO DIGITIZED EEG : 1995 Date of Study: Date of Readin05/03/2011 BRIEF HISTORY/INDICATION FOR STUDY: Wale Acosta is a 15 y.o. 11 m.o. female, admitted for V-EEG because of reported dizzy episodes associated with right arm twitching, left temporal headache, and left ear pain. She has a history of generalized tonic-clonic seizures complaining of 5-6 dizzy spells a day which she has had for about 4 years. Wale's first seizure occurred at the age of 7 and was generalized tonic-clonic. Her mother states that it occurred after she drank ~ 30 ounces of Pepsi Blue and was told that this might be associated with the onset. She was not put on any AEDs after thisepisode and remained without seizures until she started experiencing these dizzy spells in the 4th grade. These have continue up until she had two generalized tonic-clonic seizures this year (one in December and one in January). By mother's report, these generalized seizure last about 5 minutes and occur with greater movement on the right side. She has had tongue biting, urinary incontinence, and post-ictal confusion, sleepiness, and nausea associated with these episodes. They occurred while she wasasleep. Wale had an EEG done in December that showed left sided slowing. She was started on Keppra in December and then the dose was increased to 1500 mg BID after the second episode in January. Medications: leveTIRAcetam (KEPPRA) 500 mg tablet; LORazepam (ATIVAN) 0.5 mg tablet; diaZEPam (DIASTAT ACUDIAL) 12.5-15-17.5-20 mg Kit METHODS: M1 A 18 channel digitized, video electroencephalogram was performed in the PEMU for 24 hours in wakefulness and sleep. The 10/20 international system of electrode placement was used. The [employer] seizuredetection software was employed. The record was read using reformated bipolar and referential electrode montages. M2 The patient was recorded during hyperventilation and photic stimulation also. DESCRIPTIVE TEXT: D1 During the awake state with the eyes closed the background consisted of a 9- 10 Hertz posterior reactive rhythm that attenuated appropriately with eye opening. Beta activity was distributed diffusely with an anterior voltage predominance. With eye opening the background activity changed to a low voltage mixture of alpha, beta, and occasional theta range frequencies. No significant asymmetry of background activity was noted. No epileptiform activity was present. At 21:57, there is a brief L sided frontally predominant spike-wave discharge lasting 2 seconds, without clinical correlate. Patient is awake, resting, lying down in bed at the time. D2 With drowsiness there was some waxing and waning of the alpha rhythm with eventual replacement by a mixture of beta, alpha and theta activity. As the patient entered stage II of sleep, symmetricalspindles and vertex sharp waves were present. The patient progressed through normal sleep cycles, with stage III and IV sleep and periods of REM sleep, all normal. Arousal was unremarkable. HYPERVENTILATION: H1 Hyperventilation for three minutes resulted in diffuse slowing of the background activity without activation of epileptiform activity. PHOTIC STIMULATION: P1 Photic stimulation using a step-avendano increase in photic frequency from 1-21 Hertz resulted in nodriving responses or activation of epileptiform activity. EVENTS: There were several button pushes for clinical events. Event #1: (16:11): Clinical: dizzy spell reported. Says shut up to mom, and laughs and smiles, then returns to a serious somber look for a few seconds. EEG: no apparent changes, but at tail end of the clinical spell, there is a 3 second period of rhythmic vertex 2-3Hz activity with a R centro-parietal 1 second period of irregular slowing. Event #2: (18:25) Clinical: dizzy spell while eating. Stops, says she's having a dizzy spell, closes her eyes, seems to list a bit to the R, then moves her head after a couple of chewing motions and snaps out of the spell, back to baseline. EEG: subtle attenuation of EEG activity, then after 10 seconds a rhythmic 2Hz pattern appears for 2-3 seconds over the vertex posterior (parietal) and R centro-parietal area. Event #3: (19:45) Clinical: dizzy spell reported, stops eating, pushes button, a few chewing movements (but is already eating) noted. Reports head feeling hot, some pain on the L head when interviewed by nurse. EEG: subtle attenuation of EEG activity, with a 3 second period of 3Hz rhythmic vertexand R parietal activity, sharply contoured. Event #4: (21:44) Clinical: lying in bed, resting, reports dizzy spell. Mom thinks the L hand has amild tremor. EEG: out of waking (alpha) background, an attenuation of the EEG and subtle flatteningof the EEG diffusely, with a three second period of 3Hz vertex/parietal midline and R>L parietalrhythmic slowing before EEG returns to baseline (at end of spell). Event #5: (07:13) Clinical: in bed reports having dizzy spell some movements (with tonic extension, subtle) of the LUE/hand are evident under the blankets. Eyes looking to the R. EEG: diffuse pattern of attenuation of the EEG, with sharply contoured alpha frequency activity arising out of a flattened background, muscle artifact, then 6-->5-->4-->3Hz spike wave, low amplitude spikes, seen over the midline parietal (Pz) and R>>L parietal electrodes for about 4-5 seconds, before areturn to baseline. EKG: NSR at 90/minute. INTERPRETATION: I6 This 24 hour, digitized, video EEG was abnormal because of subtle EEG correlate to the patient'sreported dizzy spells which is stereotypical and is interpreted as possibly reflecting a (deep, nonsurface) seizure focus in this patient. There are no other abnormalities present. Clinical correlation essential. CC: DIAMOND SANDY MD documented in this encounter Miscellaneous Notes * Miscellaneous - Provider, Scanning - 04/23/2011 10:14 AM EDT * Miscellaneous - Provider, Scanning - 04/23/2011 10:14 AM EDT * Plan of Care - Rocio Perez RN - 04/22/2011 3:51 AM EDT Problem: Seizure Disorder/Epilepsy Peds (Pediatric) Intervention: Seizure Precautions Noted to have 3 episodes on evenings before falling asleep. Mom marked all three with a push buttonevent. Wale complained of an aura of having her head feel hot and a pain located on the left temporal area. Mom stated Wale would have twitching of her left arm and eye flutter. Two episodes were over before this RN had a chance to enter the room. The first episode on my shift, I did get just into the room as it was progressing. When I announced myself, Wale's eyes moved to look at me and then went back to fluttering and then was over before I could get close to her. Once falling to sleep no more episodes have occurred. * Discharge Summary - Nayla Dillon MD - 04/22/2011 12:45 AM EDT Pediatric Discharge Summary Patient Name: Wale Acosta : [id number] MR#: [id number] Admit Date: 04/21/2011 1:50 PM Hospital Day 1 day Discharge date and time: No discharge date for patient encounter. Attending Physician: Nayla Dillon MD Discharge Diagnoses (Hospital Problems) and Secondary Diagnoses (Chronic Problems): Active Hospital Problems Diagnoses ??? Dizziness Resolved Hospital Problems Diagnoses Date Resolved Active Non-Hospital Problems Diagnoses ??? Seizures cerebral ??? Ear pain ??? Sphenoid cyst ??? Headache Operations/Major Procedures: Other Major Procedures: vEEG History of Presentation: Wale Acosta is a 15 year old female with history of generalized tonic-clonic seizures complaining of 5-6 dizzy spells a day which she has had for about 4 years. Wale's first seizure occurred at theage of 7 and was generalized tonic- clonic. Her mother states that it occurred after she drank ~ 30 ounces of Pepsi Blue and was told that this might be associated with the onset. She was not put on any AEDs after this episode and remained without seizures until she started experiencing these dizzy spells in the 4th grade. These have continue up until she had two generalized tonic-clonic seizures this year (one in December and one in January). By mother's report, these generalized seizure last about 5 minutes and occur with greater movement on the right side. She has had tongue biting, urinary incontinence, and post-ictal confusion, sleepiness, and nausea associated with these episodes. They occurred while she was asleep. Wale had an EEG done in December that showed left sided cortical slowing. Shewas started on Keppra in December and then the dose was increased to 1500 mg BID after the second episode in January. She has not had a repeat generalized episode but has continued to have what she reports as dizzy spells. These occur with sleep but sometimes with changing position (i.e. arising from seated position). She feels like the room is spinning around her, develops twitching in her right arm, but does notlose consciousness. They are often accompanied by left temporal stabbing headache and ear pain. Shep[place] [facility] [place] of one of these events. Hospital Course: Wale Acosta underwent overnight vEEG (final result spending). Her home Keppra was continued throughout the admission. She tolerated the admission and vEEG well without complication. Wale had some push-button events while she was on the vEEG. These events will be evaluated by Neuro, and she will follow-up with them. Important Studies and Lab Data: Labs: none Studies: vEEG- results pending Pending Studies and Lab Data: No current labs Discharge Conditions/Prognosis: Weight: Wt Readings from Last 1 Encounters: 04/21/11 92.3 kg (203 lb 7.8 oz) (99.21%) Height: Ht Readings from Last 1 Encounters: 04/21/11 160 cm (5' 3) (49.03%) HC: HC Readings from Last 1 Encounters: 04/08/11 55.8 cm (21.97) Body mass index is 36.05 kg/(m^2). Last value Range last 8 hrs Temperature Temp: 36.7 ??C (98.1 ??F) Heart Rate Heart Rate: 100 Blood Pressure BP: 110/51 mmHg Respiratory Rate Resp: 24 Resp: -- SpO2 SpO2: -- There is no immunization history on file for this patient. Physical Exam Gen: NAD, lying in bed with EEG monitors and head wrap, talkative and friendly during the exam HEENT: Atraumatic, Normocephalic, MMM, no lesions in mouth, CV: RRR, no murmurs rubs or gallops, good capillary refill Pulm: CTA bilaterally, no increased work of breathing GI: Soft, NT/ND, +BS Neuro: PERRL, CN II-XII intact, patellar and achilles reflexes intact bilaterally, strength and sensation intact BL, Discharge to: home Discharge Medications: Current Discharge Medication List Continued medications, unchanged Details leveTIRAcetam (KEPPRA) 1,500 mg Take 1,500 mg by mouth 2 times daily. Qty: 180 tablet Refills: 5 Comments: Dose increase. Parents will call when needed. LORazepam (ATIVAN) 0.5-1 mg Take 0.5-1 mg = 0.5-1 mg by mouth as needed (up to 2 x daily for short seizures). Qty: 15 tablet Refills: [address] 12.5 mg rectally as needed (prolonged or frequent seizures). Qty: 1 kit Refills: 2 Medications STOPPED propranolol (INDERAL) 10 mg tablet Updated Allergies/ADRs: No Known Allergies Follow-up Recommendations for Providers: 1. Routine pediatric care 2. Neuro will contact you regarding EEG results and follow-up with them Instructions Given to Patient at Discharge: Provider Instructions None General Instructions None Future Appointments and Orders Future Appointments: Provider: Department: Dept Phone: Center: 06/01/2011 3:45 PM Enma Merino MA [facility] [phone] [facility] Appt Audiology [address] [facility] [phone] [facility] [phone] [facility] 06/01/2011 4:30 PM MD Nery Driscoll Otolaryngology [phone] [facility] 07/15/2011 10:15 AM MD Sonu Patel Pedi Neurology 6m [phone] [facility] Joint Appt Res-Pediatric Nurse Sonu [phone] [facility] Provider Contact Information: [phone] Discharge References/Attachments: Discharge References/Attachments None For questions regarding this document or issues relating to this hospitalization on the Medical Service, please contact your inpatient physician through the [facility] [place] Computer Network Engineer . Issues afterhours and on weekends will be handled by the on-call staff. WALE AHMADI MD 04/22/2011 PNE STAFF She had several episodes of dizziness . My brief review suggest possible EEG correlate. Discussedwith Mo and Wale. IMP ?? Sz disorder, motor sz controlled on keppra ?? Paroxysmal dizziness, may represent sz activity PLAN ?? Home on keppra 1500mg bid ?? I will call Mo next week once vEEG fully read * Miscellaneous - Provider, Scanning - 04/21/2011 7:48 PM EDT * Plan of Care - Wanda Leigh RN - 04/21/2011 7:06 PM EDT Problem: Seizure Disorder/Epilepsy Peds (Pediatric) Intervention: Seizure Precautions S: I just had an episode and my head felt really hot during it. O/A: Immediately after episode pt sitting up in bed playing on computer. Speech is clear and appropriate. Oriented to person, place and time. Reports that the episode was just like the one RN witnessed earlier; slow rhythmic movement of hand/arm however this time it involved the left hand instead of the right one. Bilateral eye flutter with some twitching side to side. Slight head tilt to the side. Episode lasting less than 30 sec. Does not recall anything said during the episode but remembers everything prior to the episode. P: Cont to monitor VEEG and complete appropriate documentation. documented in this encounter Plan of Treatment Not on file documented as of this encounter Visit Diagnoses Diagnosis Dizziness- Primary Dizziness and giddiness Seizure Other convulsions Seizures cerebral Acute, but ill-defined, cerebrovascular disease Acute, but ill-defined, cerebrovascular disease documented in this encounter Administered Medications Inactive Administered Medications - up to 3 most recent administrations Medication Order MAR Action Action Date Dose Rate Site leveTIRAcetam (KEPPRA) tablet 1,500 mg 1,500 mg (16.3 mg/kg/dose), Oral, 2 TIMES DAILY, First dose on Tue04/21/11 at 2000, Until Discontinued, Routine Given 04/22/2011 8:25 AM EDT 1,500 mg Given 04/21/2011 8:47 PM EDT 1,500 mg documented in this encounter Active and Recently Administered Medications Times are shown in EDT. Scheduled Medication Order 04/20/2011 04/21/2011 04/22/2011 leveTIRAcetam (KEPPRA) tablet 1,500 mg (CANCELED) 1,500 mg (16.3 mg/kg/dose), Oral, 2 TIMES DAILY, First dose on Tue04/21/11 at 1999, Until Discontinued, Routine 2046 (Given - Provider: Rocio Perez RN) 824 (Given - Provider: Sushila Leos RN) documented in this encounter
--- OUTSIDE RECORDS SUMMARY | 2024-02-17 13:33 | XMS_ITS | Encounter Summary ---
Author Organization [facility] Address [facility] [place] [address] Care Team Providers Care Multimedia Programmer Name Role Phone Unavailable Primary Care Provider Unavailabl e Reason for Visit * Reason Comments Follow-up Encounter Details Date Type Department Care Team (Late st Contact Info) Description 09/07/2012 10:45 AM EST Office Visit [place] [id number] Nayla Dillon MD [facility] [place] [address] Seizures (Primary Dx); Dizziness; Seizure disorder Discharge Disposition: Home Social History [...] Sign Reading Time Taken Comments Blood Pressure 123/68 09/07/2012 10:47 AM EST Pulse 76 09/07/2012 10:47 AM EST Temperature - - Respiratory Rate 18 09/07/2012 10:47 AM EST Oxygen Saturation - - Inhaled Oxygen Concentration - - Weight 98 kg (216 lb) 09/07/2012 10:47 AM EST Height 164 cm (5' 4.57) 09/07/2012 10:47 AM EST Head Circumference 57.2 cm 09/07/2012 10:47 AM ES T Body Mass Index 36.43 09/07/2012 10:47 AM EST Body Mass Index Percentile 99.03% 09/07/2012 10: 47 AM EST Growth Chart: [facility] (Girls, 2- 20 Years) documented in this encounter Patient Instructions * Patient Instructions* Nayla Dillon MD - 09/07/2012 11:01 AM EST Blood test today for blood count, liver functions, and carbatrol level Continue current carbatrol regimen Follow up in 6 months time documented in this encounter Progress Notes * Nayla Dillon MD - 09/07/2012 11:09 AM EST Federica Acosta was seen for followup of seizure disorder on 09/07/2012. INTERVAL HISTORY: Since I saw Federica six months ago indicates she is 17 and 3/12th years of age. Blood work at the last visit included LFTs, which were essentially unremarkable. Unfortunately, the CBC and Carbatrol level were canceled. I am told there have been no interval seizures/no episodes of dizziness. She is doing well in 9th grade and currently on vacation. Current neurologic medications is Carbatrol 200 mg tablets, two tablets b.i.d. SHE HAS NO ALLERGIES TO MEDICATIONS. Physical exam shows a well-appearing And cooperative adolescent. Cardiac exam is benign. Gait is normal. Tandem is normal. Language is fluent. Eyes movements are full and conjugate. Pupils are equal and reactive. Face is symmetric. There is no pronator drift. There is no appendicular ataxia. Deep tendon reflexes are not increased. ASSESSMENT: 1. Symmetric nonfocal elemental neurologic exam. 2. Seizure disorder, manifests as paroxysmal dizziness, has been nicely suppressed on Carbatrol for a little more than a year. 3. Due for a Carbatrol-related blood work. RECOMMENDATION: 1. Continue current Carbatrol regimen and new prescription was placed. 2. Blood today for CBC, Carbatrol level, and LFTs. 3. Follow up in the office in six months' time or sooner if indicated. documented in this encounter Plan of Treatment Not on file documented as of this encounter Procedures Procedure Name Priority Date/Time Associated Diagnosis Comments DIFFERENTIAL, AUTOMATED Routine 09/07/2012 11:23 AM EST CBC (WITH DIFF) Routine 09/07/2012 11:23 AM EST Seizures CARBAMAZEPINE LEVEL, TOTAL Routine 09/07/2012 11:23 AM EST Seizures HEPATIC FUNCTION PANEL Routine 3 11:23 AM EST Seizures documented in this encounter Results * Differential, Automated (09/07/2012 11:23 AM EST) Neutrophil % 55.9 37.0 - 77.0 % CERNER MILLENNIUM Neutrophil Absolute 5.45 1.50 - 8.00 x10(3)/mcL CERNER MILLENNIUM Lymph % 32.4 20.0 - 50.0 % CERNER MILLENNIUM Lymphocytes Abs 3.2 1.2 - 5.2 x10(3)/mcL CERNER MILLENNIUM Monocyte % 6.6 2.0 - 12.0 % CERNER MILLENNIUM Monocyte Abs 0.6 0.2 - 1.0 x10(3)/mcL CERNER MILLENNIUM Eos % 4.6 0.0 - 7.0 % CERNER MILLENNIUM Eosinophils [...] 0.05 x10(3)/mcL CERNER MILLENNIUM Blood specimen (specimen) 09/07/2012 11:23 AM EST 09/07/2012 11:31 AM EST Nayla Dillon MD HEMATOLOGY ORDERABLE S Performing Organization Address City/[facility] Co de Phone Number CERNER MILLENNIUM * Hepatic Function Panel (09/07/2012 11:23 AM EST) Protein, Total 7.1 6.4 - 8.3 gm/dL CERNER MILLENNIUM Albumin 4.4 3.2 - 5.2 gm/dL CERNER MILLENNIUM Aspartate Aminotransferase 17 5 - 30 unit/L CERNER MILLENNIUM Alanine Aminotransferase 22 0 - 25 unit/L CERNER MILLENNIUM Alkaline Phosphatase 211 80 - 250 unit/L CERNER MILLENNIUM Bilirubin, Total 0.1 <=1.0 mg/dL CERNER MILLENNIUM Bilirubin, Direct 0.1 0.0 - 0.3 mg/dL CERNER MILLENNIUM Blood specimen (specimen) 09/07/2012 11:23 AM EST 09/07/2012 11:31 AM EST Narrative Resulting Agency Comment Spec In Lab Nayla Dillon MD CHEMISTRY ORDERABLES Performing Organization Address [facility] Co de Phone Number CERNER MILLENNIUM * CBC (with Diff) (09/07/2012 11:23 AM EST) White Blood Cell 9.8 4.5 - 13.0 x10(3)/mcL CERNER MILLENNIUM Red Blood Cell 4.72 4.10 - 5.10 x10(6)/mcL CERNER MILLENNIUM Hemoglobin 13.7 12.0 - 16.0 gm/dL CERNER MILLENNIUM Hematocrit 42.1 36.0 - 46.0 % CERNER MILLENNIUM Mean Cell Volume 89.2 76.0 - 98.0 fL CERNER MILLENNIUM Mean Cell Hemoglobin 29.0 25.0 - 35.0 pg CERNER MILLENNIUM Mean Cell Hemoglobin Concentration 32.5 32.0 - 36.5 gm/dL CERNER MILLENNIUM Platelet 263 145 - 370 x10(3)/mcL CERNER MILLENNIUM RDW Standard Deviation 43.1 35.0 - 46.0 fL CERNER MILLENNIUM RDW coefficient of variation 13.2 10.9 - 14.4 % CERNER MILLENNIUM Mean Platelet Volume 9.3 9.0 - 12.0 fL CERNER MILLENNIUM Blood specimen (specimen) 09/07/2012 11:23 AM EST 09/07/2012 11:31 AM EST Narrative Resulting Agency Comment Spec In Lab Nayla Dillon MD HEMATOLOGY ORDERABLE S [facility] USAMAENNIUM * Carbamazepine level, total (09/07/2012 11:23 AM EST) Carbamazepine 9.9 8.0 - 12.0 mg/L CERNER MILLENNIUM Comment: Therapeutic range: ??8-12 mg/L Toxic: ??> 12 mg/L Blood specimen (specimen) 09/07/2012 11:23 AM EST 09/07/2012 11:31 AM EST Narrative Resulting Agency Comment Spec In Lab Nayla Dillon MD CHEMISTRY ORDERABLES SWEETIE MCKEON documented in this encounter Visit Diagnoses Diagnosis Seizures- Primary Other convulsions Dizziness Dizziness and giddiness Seizure disorder Unspecified epilepsy without mention of intractable epilepsy documented in this encounter
--- OUTSIDE RECORDS SUMMARY | 2024-02-17 13:33 | XMS_ITS | Encounter Summary ---
Author Organization [facility] Address [facility] [place] [address] Care Team Providers Care Grain Farmer Name Role Phone Jerrica Healy Primary Care Provider [phone] Reason for Visit * Reason Onset Date Comments Medication Refill 11/26/2016 Encounter Details Date Type Department Care Team (Late st Contact Info) Description 11/26/2016 [place] [address] Ferdinand Mills MD [facility] [place] [address] Medication Refill Social History Tobacco Use Types [...] Telephone Encounter - Jerrica Ray CMA - 11/26/2016 11:23 AM EDT I called the pharmacy and spoke with a pharmacist,who later ran a claim on the requested medication. The medication went through the patient's insurance, paid claim with a $4.00 co pay. Patient called and notified about the medication and will call the pharmacy to see when the medication is ready for pickup. * Telephone Encounter - Jennie Contreras - 11/26/2016 10:57 AM EDT Caller: Federica If not Pt / Relation to pt: Best time to reach caller if there are questions with medication refill request: anytime Best number to reach caller if needed: [phone] Name of Med: lamotrigine Strength of Pills:100 mg tablet Dosing Directions: take 1 tablet by mouth 3 times daily 30 or 90 Day: 30 [facility]: [facility] Last Appointment:10/06/16 Next Appointment:11/29/16 Is Patient out of Medication?: yes, Dosage changes and the pharmacy will not refill, they state it is too soon. documented in this encounter Plan of Treatment Not on file documented as of this encounter Visit Diagnoses Not on filedocumented in this encounter Care Teams Grain Farmer Relationship Specialty Start Date End Date Jerrica Healy PA [address] [place] [id number] PCP - General Family Medicine 12/26/15 documented as of this encounter
--- OUTSIDE RECORDS SUMMARY | 2024-02-17 13:33 | XMS_ITS | Encounter Summary ---
Author Organization [facility] Address [facility] [place] [address] Care Team Providers Care Commercial Sales Consultant Name Role Phone Jerrica Healy Primary Care Provider [phone] Reason for Visit * Consultation (Routine) - Closed Specialty Diagnoses / Procedures Referred By Monster martinez Referred To Contact Neurology Diagnoses Seizures Nayla Dillon MD [facility] [place] [address] [facility] Neurology [address] [place] [address] Referral ID Status Reason Start Date Expiration Date V isits Requested Visits Authorized [id number] Closed Consult, Test & Treat 12/26/2015 12/25/2016 1 1 Encounter Details Date Type Department Care Team (Late st Contact Info) Description 02/10/2016 1:00 PM EDT Office [place] [address] Ferdinand Mills MD [facility] [place] [address] Partial symptomatic epilepsy with complex partial seizures, [...] Sign Reading Time Taken Comments Blood Pressure 118/78 02/10/2016 1:00 PM EDT Pulse 96 02/10/2016 1:00 PM EDT Temperature - - Respiratory Rate - - Oxygen Saturation - - Inhaled Oxygen Concentration - - Weight 117.9 kg (260 lb) 02/10/2016 1:00 PM EDT Height 165.1 cm (5' 5) 02/10/2016 1:00 PM EDT Body Mass Index 43.27 02/10/2016 1:00 PM EDT Body Mass Index Percentile 99.54% 02/10/2016 1:0 0 PM EDT Growth Chart: [facility] (Girls, 2- 20 Years) documented in this encounter Patient Instructions * Patient Instructions* Ferdinand Mills MD - 02/10/2016 1:00 PM EDT I think you're doing quite well. You have seizures probably because of some very subtle abnormality of brain development that we cannot see on the pictures. I think you need to remain on antiepileptic medication indefinitely. Tegretol is a reasonable choice. However I would recommend that at the moment you do not get . When you have plans to get we should consider whether to keep you on Tegretol or changeto a different medication. Blood tests were all normal 6 months ago and I do not think you need any today. I would like to see you back in 6 months or sooner if any problems arise. Ferdinand Mills MD [place] [address] Pager: [phone], #[phone] Email: [email or web address] documented in this encounter Progress Notes * Ferdinand Mills MD - 02/10/2016 1:00 PM EDT Neurology Clinic Note Chief complaint: Epilepsy History: The patient is 20 years old and right handed, and was referred for neurological consultation by and Dr. Dillon to address the issue [...] has had a routine EEG done in [facility] which I read and was normal. [...] she was placed on Tegretol, and she has gone from having several in a day to having one every few months. She is tolerating the Tegretol well, and levels have been around 8. Interval History: None, initial visit with me Past medical history: Patient Active Problem List [...] Outpatient Prescriptions Medication Sig Dispense Refill ??? CARBATROL 200 mg Cap, Multiphasic Release 12 hr TAKE 2 CAPSULES BY MOUTH TWICE A DAY 120 capsule 3 No current facility-administered medications for this visit. Allergies: Review of patient's allergies indicates no known allergies. Physical Exam: VS: BP 118/78 Pulse 96 Ht 165.1 cm (5' 5) Wt (!) 117.9 kg (260 lb) BMI 43.27 kg/m2 HEENT: Normal Heart: Normal S1, S2, no abnormal sounds Lungs: Clear Abdomen: Benign Extremities: Normal Neurological exam: Mental state: Normal Speech: Normal Cranial nerves: I: Not tested II: Normal vision for finger counting. Optic disks are flat III, IV, : EOMs full V: Facial sensation normal VII: Facial strength normal VIII: Hearing normal IX, X: Palate movement normal XI: Shoulder shrug normal XII: Tongue movement normal Motor: Strength: Normal 5/5 Fine motor: Normal Tone: Normal Abnormal movements: None Deep tendon reflexes: 3+ Babinski sign: None Sensation: Touch: Normal Pin: Normal Position: Normal [...] to respond significantly to Tegretol, which they did. At present the patient is tolerating a moderate dose of Tegretol quite well, and having only rare epileptic auras without impairment of consciousness. I'm inclined to make no change. I discussed with the patient and her mother that it is an open question whether one ought to changemedication (to Lamictal which probably has the lowest risk of defects) if and when the patient decides to get . I note that at present there is a risk that she will get . I advised her to speak with her PCP regarding control until such time as she and her significant other make a conscious decision with regard to . Many patients have had successful pregnancies while taking Tegretol, and a change to different drugwould expose her to the risk of relapse including convulsive seizures. On balance I am inclined to leave her on Tegretol indefinitely, even when she plans to get . 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 Thank you for this consultation. I will see the patient back in 6 months or sooner if necessary Ferdinand Mills MD [place] [address] Pager: [phone], #[phone] Email: [email or web address] CC: Jerrica EAGLE documented in this encounter Plan of Treatment Scheduled Referrals Name Type Priority Associated Diagnoses Orde r Schedule Referral to Neurology Outpatient Referral Routine Seizures Ordered: 12/26/2015 documented as of this encounter Visit Diagnoses Diagnosis Partial symptomatic epilepsy with complex partial seizures, intractable, without status epilepticus documented in this encounter Care Teams Commercial Sales Consultant Relationship Specialty Start Date End Date Jerrica Healy PA [address] [place] [id number] PCP - General Family Medicine 12/26/15 documented as of this encounter
--- OUTSIDE RECORDS SUMMARY | 2024-02-17 13:33 | XMS_ITS | Encounter Summary ---
Author Organization [facility] Address [facility] [place] [address] Care Team Providers Care Ropewalk Rope Maker Name Role Phone Jerrica Healy Primary Care Provider Reason for Visit * Reason Onset Date Comments Medication Refill 03/30/2016 Encounter Details Date Type Department Care Team (Late st Contact Info) Description 03/30/2016 [place] [address] Ferdinand Mills MD [facility] [place] [address] Seizures Social History Tobacco Use Types Packs/Day [...] convulsions documented in this encounter Care Teams Ropewalk Rope Maker Relationship Specialty Start Date End Date Jerrica Healy PA [address] [place] [id number] PCP - General Family Medicine 12/26/15 documented as of this encounter
--- OUTSIDE RECORDS SUMMARY | 2024-02-17 13:33 | XMS_ITS | Encounter Summary ---
Author Organization [facility] Address [facility] [place] [address] Care Team Providers Care Swimming Coach Or Instructor Name Role Phone Unavailable Primary Care Provider Unavailabl e Reason for Visit * Reason Onset Date Comments Seizures 06/07/2011 continuing while on Carbatrol Encounter Details Date Type Department Care Team (Late st Contact Info) Description 06/07/2011 Telephone [place] [phone] Nayla Dillon MD [facility] [place] [address] Seizures ( continuing while on Carbatrol) Social History Tobacco Use Types Packs/Day Years [...] Telephone Encounter - Magalie Magana RN - 06/07/2011 4:01 PM EST Weight: 92.3 kg Federica recently switched from Keppra to Carbatrol starting on 05/11/11. She had labs drawn while she was still weaning from Keppra: 05/27/11 Carbamazepine level 13.6 on Carbatrol 400mg, twice daily This level was reported on 05/31/11 by voicemail. The level is slightly above the normal therapeutic range (4-12). This may be due to the combination of both medications at the time. The dose is not high for her age and weight. Since Carbatrol can decrease in level during the firstfew weeks, it may be a good idea to have labs re-drawn one more time. I phoned mom and left a message for her to call back. 4:40pm: Mom phoned back. She reports that Federica's seizures stopped when she began taking Carbatrol, but started up again when she stopped Keppra just last week. She has had 3 episodes of dizziness andaltered consciousness, although fairly short. Mom will have labs drawn again this week. If the Carbatrol level is still in the high normal range,Dr. Dillon may add back some of the Keppra. * Telephone Encounter - Jessica James - 06/07/2011 3:47 PM EST Mom is calling because Federica recently switched over to the Carbatrol. Since then she has been havingmore short episodes. Please call. documented in this encounter Plan of Treatment Not on file documented as of this encounter Visit Diagnoses Not on filedocumented in this encounter
--- OUTSIDE RECORDS SUMMARY | 2024-02-17 13:34 | XMS_ITS | Encounter Summary ---
Author Organization [facility] [place] [address] Care Team Providers Care Ham Pumper Name Role Phone Unavailable Primary Care Provider Unavailabl e Reason for Visit * Reason Onset Date Comments Results 01/04/2011 Encounter Details Date Type Department Care Team (Late st Contact Info) Description 01/04/2011 Telephone Pediatric Neurology at [facility] [place] [phone] Selina Myles RN Results Social History Tobacco Use Types Packs/Day [...] encounter Miscellaneous Notes * Telephone Encounter - Selina Myles RN - 01/04/2011 9:51 AM EDT Pediatric Neurology, [place] Date: 01/04/2011 Time of Notification: 9:44 AM Results: From EEG report on 12/30/[address] Perez- INTERPRETATION: This EEG is probably normal during the awake and sleep states as well as during the activation procedures of hyperventilation and photic stimulation. The asymmetric high amplitude slow activity during hyperventilation is of unclear clinical significance. I called and spoke with Federica Wiggins's father, and notified him of the above results. He had no questions. Plan: Continue Keppra at current prescribed dose. Follow up as needed. Selina Myles RN BSN Nurse Clinician Pediatric Neurology/Nephrology documented in this encounter Plan of Treatment Not on file documented as of this encounter Visit Diagnoses Not on filedocumented in this encounter
--- OUTSIDE RECORDS SUMMARY | 2024-02-17 13:34 | XMS_ITS | Encounter Summary ---
Author Organization [facility] [place] [address] Care Team Providers Care Ticket Sales Supervisor Name Role Phone Unavailable Primary Care Provider Unavailabl e Reason for Visit * Reason Onset Date Comments Seizures 12/28/2010 Encounter Details Date Type Department Care Team (Late st Contact Info) Description 12/28/2010 Telephone [place] [phone] Jemal Perez MD [facility] DR [place] [address] Seizures Social History Tobacco Use Types Packs/Day Years Used Date Smoking Tobacco: Never Assessed Sex and Gender Information Value Date Recorded Sex Assigned at Not on file Gender Identity Not on file Sexual Orientation Not on file documented as of this encounter Miscellaneous Notes * Telephone Encounter - Jessica James - 12/28/2010 10:18 AM EDT Mom called because last night Federica had what looked like a grand mal seizure. She has not had a seizure since she was [age]. Federica has complained again of dizziness and there have also been some jerkingmovements. Please call today if possible. documented in this encounter Plan of Treatment Not on file documented as of this encounter Visit Diagnoses Not on filedocumented in this encounter
--- OUTSIDE RECORDS SUMMARY | 2024-02-17 13:34 | XMS_ITS | Encounter Summary ---
Author Organization [facility] [place] [address] Care Team Providers Care Acidizer Name Role Phone Unavailable Primary Care Provider Unavailabl e Encounter Details Date Type Department Care Team (Late st Contact Info) Description 12/29/2010 Orders Only Pediatric Neurology at [facility], [place] [address] Selina Myles RN Seizure (Primary Dx) Social History Tobacco Use Types Packs/Day Years Used Date Smoking Tobacco: Never Assessed Sex and Gender Information Value Date Recorded Sex Assigned at Not on file Gender Identity Not on file Sexual Orientation Not on file documented as of this encounter Plan of Treatment Not on file documented as of this encounter Results * EEG awake or asleep routine (12/31/2010) Narrative Jemal Perez MD - 12/31/2010 PEDIATRIC EEG REPORT Federica Acosta [id number] 1995 Date of Service: 12/30/10 Interpreting Physician: Dr Olivia Philip (fellow) Referring physician: Dr Nuno Ballard BRIEF HISTORY/INDICATION FOR STUDY: ??Federica Acosta is a 15 y.o. patient with a question of seizures. Current Medications: ?? propranolol METHODS: A 21 channel digitized electroencephalogram was performed in the [facility] Clinical Neurophysiology Laboratory. The 10/20 international system of electrode placement was used and bipolar and referential electrode montages were recorded. ??In addition to EEG the patient was monitored for EKG and lateral/vertical eye movements. The patient was recorded during wakefulness, drowsiness, sleep, and during the activation procedures of hyperventilation and photic stimulation. Video was not recorded during the session. The duration of the recording was 30 minutes. DESCRIPTIVE TEXT: Wakefulness During the awake state with the eyes closed the background consisted of a medium amplitude, 9-10 Hz posterior reactive rhythm that attenuated appropriately with eye opening. Beta activity was distributed diffusely with an anterior predominance. There was a normal anterior-posterior voltage gradient. With eye opening the background activity changed to a low voltage mixture of alpha, beta, and occasional theta range frequencies. There were no significant asymmetries of background activity noted. The background was well developed in relation to the age of the patient. Drowsiness and Sleep With drowsiness there was some waxing and waning of the alpha rhythm with eventual replacement by a mixture of beta, alpha and theta activity. As the patient entered stage II of sleep, symmetrical spindles and vertex sharp waves were present. Arousal was unremarkable. Hyperventilation Hyperventilation resulted in diffuse slowing of the background activity. There was asymmetric slowing with higher amplitudes over the left hemisphere during HV. Photic Stimulation Photic stimulation using a step-avendano increase in photic frequency from 1-21 Hertz resulted in no driving responses or appearance of abnormal ??activity. EKG: EKG revealed normal sinus rhythm. INTERPRETATION: This EEG is probably normal during the awake and sleep states as well as during the activation procedures of hyperventilation and photic stimulation. The asymmetric high amplitude slow activity during hyperventilation is of unclear clinical significance. PRIOR EEG: No previous EEG reports were available. CLINICAL CORRELATION:The asymmetric slowing during HV is of of unclear clinical significance and is not epileptiform. Normal CC: DIAMOND SANDY MD Jemal Carbone MD NEUROLOGY ORDERABLES documented in this encounter Visit Diagnoses Diagnosis Seizure- Primary Other convulsions Seizure Other convulsions documented in this encounter
--- OUTSIDE RECORDS SUMMARY | 2024-02-17 13:34 | XMS_ITS | Encounter Summary ---
Author Organization [facility] Address [facility] [place] [address] Care Team Providers Care Marketing Admin Name Role Phone Unavailable Primary Care Provider Unavailabl e Reason for Visit * Reason Onset Date Comments Results 01/12/2011 Encounter Details Date Type Department Care Team (Late st Contact Info) Description 01/12/2011 Telephone [place] [phone] Jozef Reina MD [facility] [place] [address] Results Social History Tobacco Use Types Packs/Day [...] Telephone Encounter - Magalie Magana RN - 01/12/2011 3:59 PM EDT I spoke with Federica's father regarding the following MRI report. Dad asks if the sinus cyst may be a cause for Federica's dizziness. He is concerned that she may be taking Keppra unnecessarily for seizures. Her 12/30/10 EEG was normal other than asymmetric slowing during hyperventilation. There was no seizure activity seen on the EEG. Federica has seen Dr. Sai Ni at [facility] for a tonsillectomy in the past. I advised that her parents call for an appointment and also request a copy of the MRI to be sent to Dr. Ni's office. ([facility] Film Library: [phone]) MRI OF THE BRAIN: 01/06/11 HISTORY: Seizures. Left temporal slowing. (on EEG) TECHNIQUE: Examination was done without contrast according to our standard ANTONIO protocol. FINDINGS: The hippocampal formations are normal and symmetric. No obvious heterotopia or sign of cortical dysplasia can be demonstrated. The ventricles are normal with no sign of mass. There is an incidental sphenoid retention cyst on the right. OPINION: Essentially normal MRI. * Telephone Encounter - Yesi Yan - 01/12/2011 11:56 AM EDT Mom is looking for MRI results and also has some other questions. documented in this encounter Plan of Treatment Not on file documented as of this encounter Visit Diagnoses Not on filedocumented in this encounter
--- OUTSIDE RECORDS SUMMARY | 2024-02-17 13:34 | XMS_ITS | Encounter Summary ---
Author Organization [facility] Address [facility] [place] [address] Care Team Providers Care Hot Saw Helper Name Role Phone Unavailable Primary Care Provider Unavailabl e Reason for Visit * Reason Comments Epilepsy Urgent follow-up Gra nd mal seizure Encounter Details Date Type Department Care Team (Late st Contact Info) Description 12/30/2010 9:45 AM EDT Office Visit [place] [address] Jozef Reina MD [facility] DR [place] [address] Seizure (Primary Dx) Discharge Disposition: Home Social History Tobacco Use [...] Sign Reading Time Taken Comments Blood Pressure 104/62 12/30/2010 9:45 AM EDT Pulse 92 12/30/2010 9:45 AM EDT Temperature - - Respiratory Rate - - Oxygen Saturation - - Inhaled Oxygen Concentration - - Weight 81 kg (178 lb 9.2 oz) 12/30/2010 9:45 AM EDT Height 158 cm (5' 2.21) 12/30/2010 9:45 AM EDT Head Circumference 55.4 cm 12/30/2010 9:45 AM EDT Body Mass Index 32.45 12/30/2010 9:45 AM EDT Body Mass Index Percentile 98.39% 12/30/2010 9:4 5 AM EDT Growth Chart: [facility] (Girls, 2- 20 Years) documented in this encounter Progress Notes * Jozef Reina MD - 12/30/2010 10:17 AM EDT Pediatric Neurology Office Note Chief Complaint: year old with History obtained from HPI: Tuesday am Federica awakened in a full grand mal seizure Saliva around lips, bit left side of tongue, eyelids open, pupils dilated, convulsion of right sidelasted quite a while (about 4 minutes) lost bladder control Then went right to sleep and reported headache Back to herself later Dizzy spells in the middle of the night continue Up to three per night Mom will notice unusual movements at night Continues with dizzy spells, jerking one side Has previously awakened in the middle of the night with eyelids open, dizzy spell, can't move but she's conscious and can speak feels like someone is punching her in the stomach Had a convulsive seizure when she was 7 years old No myoclonic jerking, no staring spells No episodes when she is unable to talk or the face twists No clear triggers No headaches, no vision changes doing well in school Some behavior issues kids are kids - talking back No medications No change in social history, family history, or past medical history. Maternal GF, two uncles and a nephew with epilepsy (oldest nephew was this age when he started having seizures) Review of systems: General: No reported fevers, chills, bone pain. Constitutional: Pt has had good appetite and good energy level. Eyes: No reported changes in visual sharpness, peripheral vision, color vision, difficulty with night vision HEENT: No reported ear pain, tinnitus, rhinorrhea, mouth pain, sore throat, difficulty swallowing, changes in voice quality, hoarsness, or jaw pain CV: No reported chest pain or discomfort. RESP: No reported shortness of breath, cough, or difficulty breathing. GI: No reported nausea,vomiting, diarrhea blood in stools or abdominal pain. : No reported dysuria, hematuria, urinary frequency or urgency. Musculoskeletal: No reported joint pain or swelling. INTEGUMENTARY: No reported rash or bruising. HEMATOLGOGICAL: No reports of pallor, easy bruising or bleeding, frequent inection NEURO: see HPI PHYSICAL EXAM BP 104/62 Pulse 92 Ht 1.58 m (5' 2.21) Wt 81 kg (178 lb 9.2 oz) BMI 32.45 kg/m2 HC 55.4 cm (21.81) Cranial nerves are intact. VF are full. Fundi are unremarkable without evidence of papilledema. There is normal bulk, tone and strength in all four extremities. No drift Coordination in the upper and lower extremities is normal. Deep tendon reflexes are + and symmetrical. Babinksi is negative The gait is unremarkable. EEG shows some left focal slowing ASSESSMENT: Seizure in the setting of several years of dizzy spells, strong family history of epilepsy and one convulsive seizure at age 7 years EEG shows some left sided slowing (and lacks characteristics of KARMEN or other generalized epilepsy or Rolandic epilepsy) PLAN: MRI brain Discussed risks/benefits of keppra including risks of sleepiness and behavioral issues After discussion, decided relative benefit likely outweighs risk Will start keppra XR 500 mg nightly and titrate up to 2000mg nightly if well tolerated (a little less than 30 mg/kg/day) documented in this encounter Plan of Treatment Not on file documented as of this encounter Visit Diagnoses Diagnosis Seizure- Primary Other convulsions documented in this encounter
--- OUTSIDE RECORDS SUMMARY | 2024-02-17 13:34 | XMS_ITS | Encounter Summary ---
Author Organization [facility] Address [facility] [place] [address] Care Team Providers Care Mosaic Floor Layer Name Role Phone Unavailable Primary Care Provider Unavailabl e Reason for Visit * Reason Onset Date Comments Seizures 12/28/2010 Encounter Details Date Type Department Care Team (Late st Contact Info) Description 12/28/2010 Telephone [place] [phone] Jemal Perez MD [facility] DR PEDIATRIC [place] [address] Seizures Social History Tobacco Use Types Packs/Day Years Used Date Smoking Tobacco: Never Assessed Sex and Gender Information Value Date Recorded Sex Assigned at Not on file Gender Identity Not on file Sexual Orientation Not on file documented as of this encounter Miscellaneous Notes * Telephone Encounter - Magalie Magana RN - 12/28/2010 4:31 PM EDT Federica was seen by Dr. Perez in January 2010, and Dr. Reina in November 2009 and before. She has had normal EEG's in September [address] Perez advised that the dizziness, etc may be a type of migraine. He prescribed Propranolol 10mg, twice daily. 4pm: I phoned back to Mom. She described a classic tonic-clonic seizure. She was sleeping near her.She bit her tongue and was incontinent of urine. Mom also reports that Federica continues to have dizzy spells with arm jerking when awake. Federica also describes waking up dizzy at night, eyes open, and unable to move her body. I advised Mom that we would try to schedule an EEG and visit as soon as possible this week. 4:30pm: We have scheduled Federica for a sleep-deprived EEG for 8:30am Tuesday, 12/30 and a visit withDr. Reina at 10am that day. Mom would like to have follow-up appointments with Dr. Dillon or Tona in the future, since Dr. Reina is leaving. I have sent in a prescription for Diastat in the event of a prolonged tonic- clonic seizure (over 5 minutes) which will be available for pick-up tomorrow at [facility] in [place]. * Telephone Encounter - Jessica James - 12/28/2010 10:21 AM EDT Mom called because Federica had what appeared to be a grand mal seizure last night. Federica has not had a seizure since she was [age]. Mom also has noticed some jerking movements and Federica still has the usualdizziness. documented in this encounter Plan of Treatment Not on file documented as of this encounter Visit Diagnoses Diagnosis Seizure- Primary Other convulsions documented in this encounter
--- OUTSIDE RECORDS SUMMARY | 2024-02-17 13:34 | XMS_ITS | Encounter Summary ---
Author Organization [facility] [place] [address] Care Team Providers Care Grader Marker Name Role Phone Unavailable Primary Care Provider Unavailabl e Encounter Details Date Type Department Care Team (Late st Contact Info) Description 12/30/2010 Orders [place] [address] Jozef Reina MD [facility] [place] [address] Seizure disorder (Primary Dx) Social History Tobacco [...]
--- OUTSIDE RECORDS SUMMARY | 2024-02-17 13:34 | XMS_ITS | Encounter Summary ---
Author Organization [facility] Address [facility] [place] [address] Care Team Providers Care Professor Criminal Justice Name Role Phone Unavailable Primary Care Provider Unavailabl e Encounter Details Date Type Department Care Team (Latest Contact Info) Description 01/06/2011 5:19 PM EDT - 01/06/2011 11:59 PM EDT Hospital [place] [id number] CLINIC, Jozef Reyes MD [facility] [place] [address] Seizure disorder Discharge Disposition: Home Social History [...] leveTIRAcetam (KEPPRA) 500 mg tabletIndications:Seiz ure Take by mouth 2 times daily. Start with 1tab at night for 3 days,then increase to 1tab twice daily for one week,then increase to 2tab BID. 120 tablet 5 12/31/2010 01/14/2011 diaZEPam (DIASTAT ACUDIAL) 12.5-15-17.5-[address] 12.5 mg rectally as needed (prolonged or frequent seizures). 1 kit 2 12/28/2010 02/10/2016 propranolol (INDERAL) 10 mg tablet 10 MG = 1 Tablet(s), PO, Twice daily 01/22/2010 04/21/2011 documented as of this encounter Miscellaneous Notes * Miscellaneous - Provider, Scanning - 01/26/2011 1:32 PM EDT documented in this encounter Plan of Treatment Not on file documented as of this encounter Procedures Procedure Name Priority Date/Time Associated Diagnosis Comments MRI BRAIN WO CONTRAST Routine 01/06/2011 6:26 PM EDT Unspecified epilepsy without mention of intractable epilepsy documented in this encounter Results * MRI BRAIN WO CONTRAST (01/06/2011 6:26 PM EDT) Anatomical Region Laterality Modality Head Magnetic Resonan ce 01/06/2011 6:26 PM EDT Narrative 01/07/2011 3:07 PM EDT MRI OF THE BRAIN: ?? HISTORY: ??Seizures. ??Left temporal slowing. ?? TECHNIQUE: ??Examination was done without contrast according to our standard ANTONIO protocol. ?? FINDINGS: ??The hippocampal formations are normal and symmetric. ??No obvious heterotopia or sign of cortical dysplasia can be demonstrated. ??The ventricles are normal with no sign of mass. ??There is an incidental sphenoid retention cyst on the right. ?? OPINION: ?? Essentially normal MRI. Procedure Note Magdi Hicks MD - 01/07/2011 MRI OF THE BRAIN: HISTORY: Seizures. Left temporal slowing. TECHNIQUE: Examination was done without contrast according to ourstandard ANTONIO protocol. FINDINGS: The hippocampal formations are normal and symmetric. Noobvious heterotopia or sign of cortical dysplasia can be demonstrated. Theventricles are normal with no sign of mass. There is an incidental sphenoidretention cyst on the right. OPINION: Essentially normal MRI. Jozef Reina MD IMG MRI ORDERABLES documented in this encounter Visit Diagnoses Diagnosis Seizure disorder Unspecified epilepsy without mention of intractable epilepsy documented in this encounter
--- OUTSIDE RECORDS SUMMARY | 2024-02-17 13:34 | XMS_ITS | Encounter Summary ---
[place] [address] Care Team Providers Care Yarn Bleaching Machine Operator Name Role Phone Unavailable Primary Care Provider Unavailabl e Reason for Visit * Reason Onset Date Comments Medication Refill 12/31/2010 Encounter Details Date Type Department Care Team (Late st Contact Info) Description 12/31/2010 Refill [place] [phone] Selina Myles RN Seizure (Primary Dx) Social [...]
--- OUTSIDE RECORDS SUMMARY | 2024-02-17 13:34 | XMS_ITS | Encounter Summary ---
Author Organization [facility] [place] [address] Care Team Providers Care Erp Programmer Name Role Phone Unavailable Primary Care Provider Unavailabl e Encounter Details Date Type Department Care Team (Latest Contact Info) Description 12/30/2010 8:30 AM EDT Procedure visit Neurology at [facility] [place] [address] CLINIC, DR DEE DEE Reina, Jozef Buckley MD [facility] [place] [address] Seizure Discharge Disposition: Home Social History Tobacco Use [...] Name Priority Date/Time Associated Diagnosis Comments ZEEG AWAKE, ASLEEP, DROWSY Routine 12/31/2010 Seizure documented in this encounter Results * EEG awake or asleep routine (12/31/2010) Narrative Jemal Perez MD - 12/31/2010 PEDIATRIC EEG REPORT Federica Acosta [id number] 1995 Date of Service: 12/30/10 Interpreting Physician: Dr Perez, Dr Baker (fellow) Referring physician: Dr Nuno Ballard BRIEF HISTORY/INDICATION FOR STUDY: ??Federica Acosta is a 15 y.o. patient with a question of seizures. Current Medications: ?? propranolol METHODS: A 21 channel digitized electroencephalogram was performed in the [facility] Clinical Neurophysiology Laboratory. The 10/20 international system [...] in this encounter Visit Diagnoses Diagnosis Seizure Other convulsions documented in this encounter
[2024-02-17 16:07] LABS: Abs Immature Grans 0.02 10^3/uL (0.0-0.06); Absolute Basophil Count 0.06 10^3/uL (0.0-0.2); Absolute Eosinophil Count 0.52 10^3/uL (0.0-0.7); Absolute Monocyte Count 0.49 10^3/uL (0.1-0.8); Absolute Neutrophil Count 5.25 10^3/uL (1.2-6.7); Basophils % 0.7 %; Eosinophils % 5.9 %; HCT 42.7 % (36.0-46.0); Immature Grans % 0.2 %; Lymphocytes % 27.5 %; MCH 29.2 pg (27.0-33.0); MCHC 32.8 % (32.0-36.0); MCV 89 fL (80-95); MPV 9.1 fL (8.0-11.0); Monocytes % 5.6 %; Neutrophils % 60.1 %; Platelet Count 287 10^3/uL (130-400); RBC 4.79 10^6/uL (3.93-5.22); RDW 12.6 % (11.7-14.6); RDW-SD 41.4 fL; WBC 8.74 10^3/uL (4.4-10.8)
[2024-02-17 16:45] LABS: ALT 23 U/L (14-59); AST 16 U/L (15-37); Alkaline Phosphatase 93 U/L (46-116); Anion Gap 5.6 mmol/L (3-11); BUN 14 mg/dL (7-18); Bilirubin, Total 0.51 mg/dL (0.2-1.0); CO2 28.4 mmol/L (21.0-32.0); CREATININE 0.9 mg/dL (0.55-1.02); Calcium 9.3 mg/dL (8.5-10.1); Chloride 105 mmol/L (98-107); Estimated GFR 90.42 (mL/min/1.73m2); Glucose 88 mg/dL (74-106); Potassium 4.4 mmol/L (3.5-5.1); Sodium 139 mmol/L (136-145); TSH (W/Ref FT4) 0.95 uIU/mL (0.36-3.74); Total Protein 7.2 g/dL (6.4-8.2)
[2024-02-20 11:40] LABS: Lyme Ab w Rflx to Lyme Confirm Negative (Negative)
[2024-02-22 11:49] LABS: Anaplasma phagocytophilum Negative (Negative); B. miyamotoi PCR Negative (Negative); Babesia divergens/MO-1 Negative (Negative); Babesia duncani Negative (Negative); Babesia microti Negative (Negative); Ehrlichia chaffeensis Negative (Negative); Ehrlichia ewingii/canis Negative (Negative); Ehrlichia muris eauclairensis Negative (Negative)
== END 2024-02-17 13:29 | disposition home or self-care (01) ==
LOC: NCHCN 13:28
PROVIDERS: PCP Student in an Organized Health Care Education/Training Program; Visit Provider Student in an Organized Health Care Education/Training Program
DX: R53.83 Other fatigue (principal); Z11.8 Encounter for screening for other infectious and parasitic diseases
CPT/HCPCS: 80053; 87798; 84443; 85025; 86618

== ENCOUNTER 2024-11-10 08:12 | Emergency (ER) | payer OTHER, SELFPAY ==
[2024-11-10 08:14] VITALS: BP 134/43; PULSE 87; RESP 16; TEMP 36.8; O2SAT 96
--- NOTE | 2024-11-10 08:15 | DI.RAD_ITS ---
Exam(s) XR CHEST 2V PA LATERAL EXAM: XR CHEST 2V PA LATERAL CLINICAL HISTORY: Cough, Inhalation TECHNIQUE: 2D digital imaging was performed. Two views. COMPARISON: CR XR CHEST 2V PA LATERAL from 09/10/2020 FINDINGS: HEART: Normal size. Aorta: Not dilated. PULMONARY VASCULATURE: Normal. MEDIASTINUM: Unremarkable. LUNGS: Clear. PLEURAL SPACE: No pleural effusion or pneumothorax. BONE:Unremarkable for age. SOFT TISSUES: Unremarkable. IMPRESSION: No acute abnormality. DATA REPOSITORY: RADIATION DOSE DELIVERED:
[2024-11-10 08:16] VITALS: BP 134/43; PULSE 87; RESP 16; TEMP 36.8; O2SAT 96
--- NOTE | 2024-11-10 08:21 | ED.GENADUL_ITS ---
Discharge Plan Disposition Patient Disposition: Home Condition: Stable Discharge Details Clinical Impression: Asthma exacerbation Primary Care Provider: Bassam Ibarra ED Provider: Genesis Lew Home Meds and New Rx's Prescriptions: No Action sumatriptan succinate 100 mg tablet See Rx Instructions PO .COMPLEX Qty: 14 3RF Rx Instructions: take 1 tab at onset of headache; if no relief, may repeat 1 tab after at least 2 hrs; max = 2 tabs/24 hrs PO albuterol sulfate 90 mcg/actuation HFA aerosol inhaler 1 puff inhalation Q4H PRN fluticasone propionate [Flonase Allergy Relief] 50 mcg/actuation spray,suspension 2 spray intranasal DAILY 30 Days Qty: 16 12RF Rx Instructions: administer into each nostril sumatriptan succinate 100 mg tablet 100 mg PO ONCE triamcinolone acetonide 0.1 % cream 1 applic topical DAILY lamotrigine [Lamictal] 25 mg tablet 25 mg PO DAILY (DME) [facility] Spacer See Rx Instructions .ROUTE Rx Instructions: As directed Discharge Instructions Instructions: Avoiding asthma triggers, Asthma, Adult ED, How to Use a Metered Dose Inhaler ED Additional Instructions: Please use your albuterol inhaler 1 or 2 puffs every 4-6 hours with the spacer. Chest x-ray shows no pneumonia or abnormality. Negative for COVID and flu. I do suspect that you are having a asthma exacerbation. Please consider quitting smoking. Follow up with primary care provider in 3-5 days. Return to ED sooner if any worsening or concerns. Thank you for allowing us to care for you today Referrals: Bassam Ibarra [Primary Care Provider] - 3 days HPI General Mode of arrival: ambulatory . Date/Time Provider Initiated Documentation: 11/10/24 08:17 . Limitations to Documentation: no limitations . Information obtained by: patient, RN notes reviewed and old records reviewed . HPI Narrative: 29-year-old female presents to the ER with a chief complaint of difficulty breathing, cough heaviness around her chest since Tuesday. She reports that she was also cleaning out her garage on Tuesday was using some Lysol this may have exacerbated her symptoms. She does have a history of asthma and is a daily smoker. She does have some mild scattered wheezes greater on the right with expiration. Denies any fever or chills. She is speaking in full sentences. She does have a past medical history of ADHD depression seizures psoriasis. Is using an albuterol inhaler without a spacer last use just prior to arrival. She reports that is not helping. Related Data Home Medications ?Medication ?Instructions ?Recorded ?Confirmed sumatriptan succinate 100 mg tablet See Rx Instructions PO .COMPLEX 02/01/23 11/10/24 #14 tabs albuterol sulfate 90 mcg/actuation 1 puff inhalation Q4H PRN 06/14/23 11/10/24 aerosol inhaler fluticasone propionate 50 2 spray intranasal DAILY 30 days 08/17/23 11/10/24 mcg/actuation nasal #16 grams spray,suspension (Flonase Allergy Relief) inhalational spacing device 08/23/23 11/10/24 ([employer] [facility] spacer) lamotrigine 25 mg tablet (Lamictal) 25 mg PO DAILY 08/23/23 11/10/24 sumatriptan succinate 100 mg tablet 100 mg PO ONCE 08/23/23 11/10/24 triamcinolone acetonide 0.1 % 1 applic topical DAILY 08/23/23 11/10/24 topical cream Previous Rx's ?Medication ?Instructions ?Recorded sumatriptan succinate 100 mg tablet See Rx Instructions PO .COMPLEX 02/01/23 #14 tabs fluticasone propionate 50 2 spray intranasal DAILY 30 days 08/17/23 mcg/actuation nasal #16 grams spray,suspension (Flonase Allergy Relief) Allergies Allergy/AdvReac Type Severity Reaction Status Date / Time cat dander Allergy Unknown Wheezing Verified 11/10/24 08:14 Latex, Natural Rubber AdvReac Mild Topical Unverified 11/10/24 08:14 Irritation Seasonal Allergies Allergy Mild Wheezing Uncoded 11/10/24 08:14 General Stated Complaint: RespSymp OMAR: 4 Review of Systems All systems reviewed & are unremarkable except as noted in HPI and below Cardiovascular Cardiovascular: Reports dyspnea Respiratory Respiratory: Reports cough, Reports dyspnea and Reports wheezing Allergic/Immunologic Allergic/Immunologic: Reports wheezing Exam Narrative Exam Narrative: Constitutional: Alert and oriented x3. Appears stated age. Obese body habitus. Head: Normocephalic, no trauma. Eyes: Pupils PERRL, Red reflex noted, EOM's intact. Eyelids symmetrical without lesions, discharge, or swelling. ENT: Bilateral TM's WNL, External ear normal to inspection, no mastoid TTP, swelling, or erythema, Nasal turbinates WNL, no nasal discharge. Normal dentition, Posterior pharynx WNL, no exudate. Chest: RRR, Normal S1, S2, distal pulses intact. Resp: Lungs mild scattered wheezes, greater on the right. Abdomen: Soft, non-distended, Normoactive bowel sounds all 4 quads. Musculoskeletal: Normal gait, Moves all 4 extremities without difficulty. Skin: No suspicious rashes or lesions. Capillary refill less than 2 sec. Neurologic: Cranial nerves II-XII intact. Alert and oriented x 3. Motor: No deficits noted. Sensory: Intact bilaterally all 4 extremities. Hematologic/Lymphatic: No ecchymosis, no lymphadenopathy. Course Vital Signs Vital signs: Vital Signs Temperature 36.8 C 11/10/24 08:14 Pulse 87 11/10/24 08:14 Respiratory Rate 16 11/10/24 08:14 Blood Pressure 134/43 L 11/10/24 08:14 Pulse Oximetry 96 11/10/24 08:14 Temperature 36.8 C 11/10/24 08:16 Temperature Source Oral 11/10/24 08:14 Pulse 87 11/10/24 08:16 Respiratory Rate 16 11/10/24 08:16 Blood Pressure 134/43 L 11/10/24 08:16 Blood Pressure Position Sitting 11/10/24 08:16 Pulse Oximetry 96 11/10/24 08:16 Oxygen Delivery Method Room Air 11/10/24 08:16 Oxygen Flow Rate 0 11/10/24 08:14 Pain Level 7 11/10/24 08:16 Medical Decision Making 29-year-old female presents to the ER with a chief complaint of difficulty breathing, cough heaviness around her chest since Tuesday. She reports that she was also cleaning out her garage on Tuesday was using some Lysol this may have exacerbated her symptoms. She does have a history of asthma and is a daily smoker. She does have some mild scattered wheezes greater on the right with expiration. Denies any fever or chills. She is speaking in full sentences. She does have a past medical history of ADHD depression seizures psoriasis. Is using an albuterol inhaler without a spacer last use just prior to arrival. She reports that is not helping. Flu COVID swab ordered, chest x-ray and albuterol ipratropium DuoNeb ordered. Chest x-ray within normal limits. Negative COVID and flu. Will discharge with a spacer. asthma exacerbation. Patient was improved after DuoNeb. Patient remained hemodynamically stable. This text was generated using [employer] system, please disregard any oddities of phrase or misspellings. Imaging Data Radiologic Study: Imaging: X-Ray Radiologist's impression: Exam(s) XR CHEST 2V PA LATERAL EXAM: XR CHEST 2V PA LATERAL CLINICAL HISTORY: Cough, Inhalation TECHNIQUE: 2D digital imaging was performed. Two views. COMPARISON: CR XR CHEST 2V PA LATERAL from 09/10/2020 FINDINGS: HEART: Normal size. Aorta: Not dilated. PULMONARY VASCULATURE: Normal. MEDIASTINUM: Unremarkable. LUNGS: Clear. PLEURAL SPACE: No pleural effusion or pneumothorax. BONE:Unremarkable for age. SOFT TISSUES: Unremarkable. IMPRESSION: No acute abnormality. Quality:SDOH Health Related Social Needs: No Data to Display PFSH All Active Problems (Updated 11/10/24 @ 09:33 by Genesis Lew NP) Asthma exacerbation (Acute) Atypical migraine (Acute) Migraine headache with aura (Acute) Migraine headache without aura (Acute) Discharge planning issues (Acute) Tobacco abuse (Chronic) Thoughts of self harm (Acute) Atypical chest pain (Acute) Medical History Inspiratory wheezing Arterial bruit Thoracic spine pain Pitting of nails Psoriasis Cyst of sphenoid sinus Anxiety Suicidal ideation ADHD Allergic rhinitis Obesity (BMI 30.0-34.9) Major depression Seizures Surgical History History of adenoidectomy History of tonsillectomy Family History Mother Depression Brother Seizure disorder HX OF DISORDER Daughter Family history of seizure disorder Maternal Grandfather Family history of seizure disorder Social History Smoking/Tobacco Use Status: Current every day Tobacco Type: e-cigarettes Tobacco: How many years used: 9 Quit status: not considering quitting Counseling given: provider counseling and patient declined Smoking risk assessment performed?: Yes Alcohol Intake: never Drug use: Daily Substance use type: marijuana Housing: apartment Do you feel safe at home: Yes Do you feel safe in your relationship?: Yes
[2024-11-10 08:31] VITALS: RESP 5
[2024-11-10] MEDS: Albuterol/Ipratropium 3 ML UPD VIAL UPD (08:31)
--- NOTE | 2024-11-10 08:56 | DI.VRAD_ITS ---
PROCEDURE INFORMATION: Exam: XR Chest Exam date and time: 11/10/2024 8:50 AM Age: 29 years old Clinical indication: Other: Cough TECHNIQUE: Imaging protocol: Radiologic exam of the chest. Views: 2 views. COMPARISON: CR XR CHEST 2V PA LATERAL 09/10/2020 1:04 PM FINDINGS: Lungs: No focal consolidation seen. Pleural spaces: No large pleural effusion seen. Heart/Mediastinum: No cardiomegaly. Bones/joints: No acute abnormality. IMPRESSION: No acute findings to explain reported symptoms. Dictated and Authenticated by: Charlotte Parker MD. Orderin Vipin Hurtado MD
== END 2024-11-10 09:53 | disposition home or self-care (01) ==
PROVIDERS: Emergency Provider Registered Nurse Emergency; PCP Student in an Organized Health Care Education/Training Program
DX: J45.901 Unspecified asthma with (acute) exacerbation (principal); F17.210 Nicotine dependence, cigarettes, uncomplicated
CPT/HCPCS: 81025; 87426; 94640; 99284; 71046; J7620